=== PATIENT | male | born 1975 | race Caucasian/White ===

== ENCOUNTER 2024-10-11 09:31 | Inpatient (IN) | payer OTHER ==
--- NOTE | 2024-10-11 10:25 | ED ---
General Adult HPI - General Chief complaint: Chest Pain Stated complaint: chest pain Time Seen by Provider: 10/11/24 09:45 Source: patient, RN notes reviewed Mode of arrival: ambulatory Limitations: no limitations - History of Present Illness Initial comments: 48-year-old male with history of hypertension not currently medications presenting to the emergency department with complaints of intermittent central nonradiating chest pain over the past 3 days. He states that on Friday he began to experience pain middle of his chest while he was walking to the appeared to go fishing. He states that after he sat down and rest the pain resolved. He stated at the time of the pain it was nonradiating with associated diaphoresis. Over the past few days he has experienced similar symptoms of pain in the mid of his chest that is nonradiating and resolved with rest. Currently patient states that he is chest pain-free. Denies history of DVT, PE, recent prolonged travels, recent surgeries, blood thinner use. Denies history of diabetes, hyperlipidemia. Endorses chewing tobacco history. - Related Data Home Medications Medication Instructions Recorded Confirmed No Known Home Medications 10/11/24 10/11/24 Allergies Allergy/AdvReac Type Severity Reaction Status Date / Time acetaminophen AdvReac Chest Pain Verified 10/11/24 12:43 [From Tylenol-Codeine] codeine AdvReac Chest Pain Verified 10/11/24 12:43 [From Tylenol-Codeine] Review of Systems ROS Statement: Those systems with pertinent positive or pertinent negative responses have been documented in the HPI. ROS Other: All systems not noted in ROS Statement are negative. Past Medical History Past Medical History: No Reported History History of Any Multi-Drug Resistant Organisms: None Reported Past Surgical History: Hernia Repair, Tonsillectomy Past Psychological History: No Psychological Hx Reported Smoking Status: Never smoker Past Alcohol Use History: None Reported Past Drug Use History: Marijuana General Exam - General Exam Comments Initial Comments: Visual Physical Exam Vital signs reviewed General: Well-appearing, nontoxic, no acute distress. Head: Normocephalic, atraumatic Eyes: PERRLA, EOMI ENT: Airway patent Chest: Nonlabored breathing Skin: No visual rash, normal skin tone Neuro: Alert and oriented 3 Musculoskeletal: No gross abnormalities Limitations: no limitations General appearance: alert, in no apparent distress Neck exam: Present: normal inspection. Absent: tenderness, meningismus, lymphadenopathy Respiratory exam: Present: normal lung sounds bilaterally. Absent: respiratory distress, wheezes, rales, rhonchi, stridor Cardiovascular Exam: Present: regular rate, normal rhythm, normal heart sounds. Absent: systolic murmur, diastolic murmur, rubs, gallop, clicks GI/Abdominal exam: Present: soft, normal bowel sounds. Absent: distended, tenderness, guarding, rebound, rigid Extremities exam: Present: normal inspection, full ROM, normal capillary refill. Absent: tenderness, pedal edema, joint swelling, calf tenderness Back exam: Present: normal inspection Course Vital Signs 10/11/24 10/11/24 09:43 12:03 Temperature 97.7 F Pulse Rate 84 68 Respiratory 19 18 Rate Blood Pressure 158/115 169/106 O2 Sat by Pulse 99 97 Oximetry Medical Decision Making - Medical Decision Making Was pt. sent in by a medical professional or institution (, PA, JAVA J2EE ARCHITECT, urgent care, hospital, or fci...) When possible be specific @ -No Did you speak to anyone other than the patient for history (EMS, parent, family, police, friend...)? What history was obtained from this source @ -No Did you review nursing and triage notes (agree or disagree)? Why? @ -I reviewed and agree with nursing and triage notes Were old charts reviewed (outside hosp., previous admission, EMS record, old EKG, old radiological studies, urgent care reports/EKG's, fci records)? Report findings @ -No old charts were reviewed Differential Diagnosis (chest pain, altered mental status, abdominal pain women, abdominal pain men, vaginal bleeding, weakness, fever, dyspnea, syncope, headache, dizziness, GI bleed, back pain, seizure, CVA, palpatations, mental health, musculoskeletal)? @ -Differential Chest Pain: Stable Angina, Unstable Angina, STEMI, NSTEMI Aortic Dissection, Pneumothorax, Musculoskeletal, Esophageal Spasm GERD, Cholecystitis, Pancreatitis, Zoster, this is not meant to be an all-inclusive list. EKG interpreted by me (3pts min.). @ -Completed at 936 sinus rhythm with a ventricular rate of76, DC interval 141, QRS 88, QT 372, QTc 402. X-rays interpreted by me (1pt min.). @ -Chest x-ray no acute process, possible underlying COPD. CT interpreted by me (1pt min.). @ -None done U/S interpreted by me (1pt. min.). @ -None done What testing was considered but not performed or refused? (CT, X-rays, U/S, labs)? Why? @ -None What meds were considered but not given or refused? Why? @ -None Did you discuss the management of the patient with other professionals (professionals i.e. Dr., PA, JAVA J2EE ARCHITECT, lab, RT, psych nurse, adoption social worker, pattern developer, teacher, workers' compensation hearings officer, major case detective)? Give summary @ -I spoke with Rachelle from [facility] who has agreed to admit the patient with cardiology on consult. Was smoking cessation discussed for >3mins.? @ -No Was critical care preformed (if so, how long)? @ -Yes, for greater than 35 minutes this patient was started on a heparin drip. Were there social determinants of health that impacted care today? How? (Homelessness, low income, unemployed, alcoholism, drug addiction, transportation, low edu. Level, literacy, decrease access to med. care, fpc, rehab)? @ -No Was there de-escalation of care discussed even if they declined (Discuss DNR or withdrawal of care, Hospice)? DNR status @ -No What co-morbidities impacted this encounter? (DM, HTN, Smoking, COPD, CAD, Cancer, CVA, ARF, Chemo, Hep., AIDS, mental health diagnosis, sleep apnea, morbid obesity)? @ -None Was patient admitted / discharged? Hospital course, mention meds given and route, prescriptions, significant lab abnormalities, going to OR and other pertinent info. @ -Admitted. 48-year-old male presented emergency room with complaints of intermittent chest pain. Patient is hypertensive on arrival with a blood pressure 158/115. EKG is in sinus rhythm. Patient will be evaluated via chest pain workup including chest x-ray and laboratory testing. Patient is also provided with dose of aspirin with concern for potential ACS. Patient troponin is elevated at 0.068 consistent with an NSTEMI and there are no ischemic EKG changes. Patient is resting in examination bed in no signs of chest pain or acute complaints. Patient will be started on low intensity heparin drip and will trend troponin every 3 hours. Patient will be admitted to internal medicine with cardiology consult. Case discussed with my attending Dr. Helmreich. admitted to [facility]. Undiagnosed new problem with uncertain prognosis? @ -No Drug Therapy requiring intensive monitoring for toxicity (Heparin, Nitro, Insulin, Cardizem)? @ -No Were any procedures done? @ -No Diagnosis/symptom? @ -NSTEMI, ACS Acute, or Chronic, or Acute on Chronic? @ -Acute Uncomplicated (without systemic symptoms) or Complicated (systemic symptoms)? @ -Complicated Side effects of treatment? @ -No Exacerbation, Progression, or Severe Exacerbation? @ -No Poses a threat to life or bodily function? How? (Chest pain, [place], [place], pneumonia, PE, COPD, DKA, ARF, appy, cholecystitis, CVA, Diverticulitis, Homicidal, Suicidal, threat to staff... and all critical care pts) @ -Yes, can lead to multiorgan system dysfunction and potential of . - Lab Data Result diagrams: 10/11/24 10:25 10/11/24 10:25 Lab Results 10/11/24 10/11/24 10/11/24 Range/Units 10:25 10:25 10:25 WBC 11.52 H (4.50-10.00) 10*3/uL RBC 4.75 (4.40-5.60) 10*6/uL Hgb 15.3 (13.0-17.0) g/dL Hct 43.1 (39.6-50.0) % MCV 90.7 (80.0-97.0) fL MCH 32.2 H (27.0-32.0) pg MCHC 35.5 (32.0-37.0) g/dL Plt Count 308 (140-440) 10*3/uL MPV 10.9 (9.5-12.2) fL Immature Gran % (Auto) 0.3 % Neutrophils % 64.4 % Lymphocytes % 26.0 % Monocytes % 7.6 % Eosinophils % 1.2 % Basophils % 0.5 % Immature Gran # 0.04 (0.00-0.04) 10*3/uL Neutrophils # 7.41 (1.80-7.70) 10*3/uL Lymphocytes # 3.00 (0.90-5.00) 10*3/uL Monocytes # 0.87 (0.20-1.00) 10*3/uL Eosinophils # 0.14 (0.04-0.35) 10*3/uL Basophils # 0.06 (0.00-0.10) 10*3/uL PT 10.3 (10.0-12.5) sec INR 0.9 (<1.2) APTT 22.7 (22.0-30.0) sec D-Dimer (<0.60) mg/L FEU Sodium 139 (137-145) mmol/L Potassium 4.3 (3.5-5.1) mmol/L Chloride 106 (98-107) mmol/L Carbon Dioxide 23 (22-30) mmol/L Anion Gap 10 mmol/L BUN 11 (9-20) mg/dL Creatinine 0.81 (0.66-1.25) mg/dL Est GFR (CKD-EPI)AfAm >90 (>60 ml/min/1.73 sqM) Est GFR (CKD-EPI)NonAf >90 (>60 ml/min/1.73 sqM) Glucose 114 H (74-99) mg/dL Calcium 9.6 (8.4-10.2) mg/dL Magnesium 1.6 (1.6-2.3) mg/dL Total Bilirubin 0.7 (0.2-1.3) mg/dL AST 27 (17-59) U/L ALT 27 (4-49) U/L Alkaline Phosphatase 79 (38-126) U/L Troponin I (0.000-0.034) ng/mL NT-Pro-B Natriuret Pep pg/mL Total Protein 6.9 (6.3-8.2) g/dL Albumin 4.5 (3.5-5.0) g/dL Lipase 434 H (23-300) U/L 10/11/24 10/11/24 10/11/24 Range/Units 10:25 10:25 10:25 WBC (4.50-10.00) 10*3/uL RBC (4.40-5.60) 10*6/uL Hgb (13.0-17.0) g/dL Hct (39.6-50.0) % MCV (80.0-97.0) fL MCH (27.0-32.0) pg MCHC (32.0-37.0) g/dL Plt Count (140-440) 10*3/uL MPV (9.5-12.2) fL Immature Gran % (Auto) % Neutrophils % % Lymphocytes % % Monocytes % % Eosinophils % % Basophils % % Immature Gran # (0.00-0.04) 10*3/uL Neutrophils # (1.80-7.70) 10*3/uL Lymphocytes # (0.90-5.00) 10*3/uL Monocytes # (0.20-1.00) 10*3/uL Eosinophils # (0.04-0.35) 10*3/uL Basophils # (0.00-0.10) 10*3/uL PT (10.0-12.5) sec INR (<1.2) APTT (22.0-30.0) sec D-Dimer 0.18 (<0.60) mg/L FEU Sodium (137-145) mmol/L Potassium (3.5-5.1) mmol/L Chloride (98-107) mmol/L Carbon Dioxide (22-30) mmol/L Anion Gap mmol/L BUN (9-20) mg/dL Creatinine (0.66-1.25) mg/dL Est GFR (CKD-EPI)AfAm (>60 ml/min/1.73 sqM) Est GFR (CKD-EPI)NonAf (>60 ml/min/1.73 sqM) Glucose (74-99) mg/dL Calcium (8.4-10.2) mg/dL Magnesium (1.6-2.3) mg/dL Total Bilirubin (0.2-1.3) mg/dL AST (17-59) U/L ALT (4-49) U/L Alkaline Phosphatase (38-126) U/L Troponin I 0.068 H* (0.000-0.034) ng/mL NT-Pro-B Natriuret Pep 92 pg/mL Total Protein (6.3-8.2) g/dL Albumin (3.5-5.0) g/dL Lipase (23-300) U/L 10/11/24 Range/Units 13:05 WBC (4.50-10.00) 10*3/uL RBC (4.40-5.60) 10*6/uL Hgb (13.0-17.0) g/dL Hct (39.6-50.0) % MCV (80.0-97.0) fL MCH (27.0-32.0) pg MCHC (32.0-37.0) g/dL Plt Count (140-440) 10*3/uL MPV (9.5-12.2) fL Immature Gran % (Auto) % Neutrophils % % Lymphocytes % % Monocytes % % Eosinophils % % Basophils % % Immature Gran # (0.00-0.04) 10*3/uL Neutrophils # (1.80-7.70) 10*3/uL Lymphocytes # (0.90-5.00) 10*3/uL Monocytes # (0.20-1.00) 10*3/uL Eosinophils # (0.04-0.35) 10*3/uL Basophils # (0.00-0.10) 10*3/uL PT (10.0-12.5) sec INR (<1.2) APTT 38.1 H (22.0-30.0) sec D-Dimer (<0.60) mg/L FEU Sodium (137-145) mmol/L Potassium (3.5-5.1) mmol/L Chloride (98-107) mmol/L Carbon Dioxide (22-30) mmol/L Anion Gap mmol/L BUN (9-20) mg/dL Creatinine (0.66-1.25) mg/dL Est GFR (CKD-EPI)AfAm (>60 ml/min/1.73 sqM) Est GFR (CKD-EPI)NonAf (>60 ml/min/1.73 sqM) Glucose (74-99) mg/dL Calcium (8.4-10.2) mg/dL Magnesium (1.6-2.3) mg/dL Total Bilirubin (0.2-1.3) mg/dL AST (17-59) U/L ALT (4-49) U/L Alkaline Phosphatase (38-126) U/L Troponin I (0.000-0.034) ng/mL NT-Pro-B Natriuret Pep pg/mL Total Protein (6.3-8.2) g/dL Albumin (3.5-5.0) g/dL Lipase (23-300) U/L Disposition Clinical Impression: NSTEMI (non-ST elevated myocardial infarction), ACS (acute coronary syndrome) Disposition[facility] Condition: Serious Referrals: None,Stated [Primary Care Provider] - 1-2 days [facility] [NON-STAFF] - 1-2 days (Clinic for [facility] residents with no insurance or who are under insured.) Forms: Area PCPs Decision to Admit Reason: Admit from EC Decision Date: 10/11/24 Decision Time: 12:15
[2024-10-11 10:42] LABS: ALT 27 U/L (4-49); AST 27 U/L (17-59); African American GFR (CKD) >90 (>60 ml/min/1.73 sqM); Albumin 4.5 g/dL (3.5-5.0); Alkaline Phosphatase 79 U/L (38-126); Anion Gap 10 mmol/L; Blood Urea Nitrogen 11 mg/dL (9-20); Calcium 9.6 mg/dL (8.4-10.2); Carbon Dioxide 23 mmol/L (22-30); Chloride 106 mmol/L (98-107); Glucose 114 mg/dL (74-99); Lipase 434 U/L (23-300); Magnesium 1.6 mg/dL (1.6-2.3); Non-African American GFR(CKD) >90 (>60 ml/min/1.73 sqM); Potassium 4.3 mmol/L (3.5-5.1); Sodium 139 mmol/L (137-145); Total Protein 6.9 g/dL (6.3-8.2)
--- NOTE | 2024-10-11 10:44 | XR ---
EXAMINATION TYPE: XR chest 2V DATE OF EXAM: 10/11/2024 10:33 AM COMPARISON: None CLINICAL INDICATION: Male, 48 years old with history of Chest Pain, , TECHNIQUE: PA and lateral views FINDINGS: Heart normal size. Aorta and pulmonary vasculature within normal limits. Mild interstitial prominence and mild hyperinflation. No consolidation or pleural effusion. Left mid to lower lung nodularity, li kit nipple shadow. IMPRESSION: Possible underlying COPD. Clinically correlate. Otherwise, no definite acute process. [facility], Workstation: [email or web address], 10/11/2024 10:42 AM
[2024-10-11 10:58] LABS: Basophils # (A) 0.06 10*3/uL (0.00-0.10); Basophils % (A) 0.5 %; Eosinophils # (A) 0.14 10*3/uL (0.04-0.35); Eosinophils % (A) 1.2 %; HCT 43.1 % (39.6-50.0); HGB 15.3 g/dL (13.0-17.0); Lymphocytes # (A) 3.00 10*3/uL (0.90-5.00); Lymphocytes % (A) 26.0 %; MCH 32.2 pg (27.0-32.0); MCHC 35.5 g/dL (32.0-37.0); MCV 90.7 fL (80.0-97.0); Monocytes # (A) 0.87 10*3/uL (0.20-1.00); Monocytes % (A) 7.6 %; Neutrophils # (A) 7.41 10*3/uL (1.80-7.70); Neutrophils % (A) 64.4 %; Platelet Count 308 10*3/uL (140-440); RBC 4.75 10*6/uL (4.40-5.60); RDW 11.8 % (11.5-14.5); WBC 11.52 10*3/uL (4.50-10.00)
[2024-10-11 10:59] LABS: INR 0.9 (<1.2); Partial Thromboplastin Time 22.7 sec (22.0-30.0); Prothrombin Time 10.3 sec (10.0-12.5)
[2024-10-11] MEDS: HEPARIN SOD,PORK IN 0.45% NACL 25,000 UNIT in 0.45% NACL 1 250ML.BAG IV SCH (12:13)
[2024-10-11] MEDS: HEPARIN SODIUM 1,000 UN/ML (10ML VL) IV ONE (12:13)
[2024-10-11] MEDS: ASPIRIN 81 MG PO STA (12:13)
[2024-10-11] MEDS ORDERED: NALOXONE 0.4 MG/ML 1 ML VIAL IV PRN (12:27)
[2024-10-11] MEDS: HEPARIN SODIUM 1,000 UN/ML (10ML VL) IV PRN (18:52)
[2024-10-12 01:29] LABS: Basophils # (A) 0.06 10*3/uL (0.00-0.10); Basophils % (A) 0.4 %; Eosinophils # (A) 0.17 10*3/uL (0.04-0.35); Eosinophils % (A) 1.3 %; HCT 42.8 % (39.6-50.0); HGB 15.2 g/dL (13.0-17.0); Lymphocytes # (A) 4.53 10*3/uL (0.90-5.00); Lymphocytes % (A) 33.9 %; MCH 32.3 pg (27.0-32.0); MCHC 35.5 g/dL (32.0-37.0); MCV 90.9 fL (80.0-97.0); Monocytes # (A) 1.12 10*3/uL (0.20-1.00); Monocytes % (A) 8.4 %; Neutrophils # (A) 7.45 10*3/uL (1.80-7.70); Neutrophils % (A) 55.6 %; Platelet Count 293 10*3/uL (140-440); RBC 4.71 10*6/uL (4.40-5.60); RDW 12.0 % (11.5-14.5); WBC 13.38 10*3/uL (4.50-10.00)
[2024-10-12 02:21] LABS: INR 1.0 (<1.2); Prothrombin Time 10.9 sec (10.0-12.5)
--- NOTE | 2024-10-12 05:24 | P.HPIM ---
History of Present Illness H&P Date: 10/11/24 This is a pleasant 48-year-old male who presented to the emergency department with chest pain. Patient [place] [employer] [place] and walking [id number] doing things throughout the day started having midsternal chest pain that was sharp and intense and intermittent at times although progressively became worse over the day and was persistent and was brought here by family for further evaluation. Patient reports he follows with Dr. Reyna in the [place] area as patient resides there and no significant past medical history other than previous history of hypertension although blood pressures have improved and patient was not taking any medications for them. Patient denies alcohol use or tobacco use but does admit to using marijuana on occasion. Labs reviewed on admission reveal a mildly elevated white count of 11.52, hemoglobin 15.3, platelets 308, D-dimer 0.18, sodium 139 with a potassium of 4.3, BUN 11, creatinine 0.81, magnesium 1.6, initial troponin 0.068, repeat is 0.060, third troponin is 0.051, BNP was 92 and lipase is 434. Patient did admit to some abdominal discomfort when experiencing this pain. Chest x-ray reveals possible underlying COPD otherwise no definitive acute process, EKG shows sinus rhythm and a heart rate of 76 bpm. Patient being admitted and started on IV heparin with cardiology on consultation. REVIEW OF SYSTEMS: CONSTITUTIONAL: No fever, no malaise, no fatigue. HEENT: No recent visual problems or hearing problems. Denied any sore throat. CARDIOVASCULAR: Reports of intermittent chest pain, orthopnea, PND, no palpitations, no syncope. PULMONARY: Reported shortness of breath during the chest pain episode, no cough, no hemoptysis. GASTROINTESTINAL: No diarrhea, reporting feeling briefly nauseated, no vomiting, no abdominal pain. NEUROLOGICAL: No headaches, no weakness, no numbness. HEMATOLOGICAL: Denies any bleeding or petechiae. GENITOURINARY: Denies any burning micturition, frequency, or urgency. MUSCULOSKELETAL/RHEUMATOLOGICAL: Denies any joint pain, swelling, or any muscle pain. ENDOCRINE: Denies any polyuria or polydipsia. The rest of the 14-point review of systems is negative. PHYSICAL EXAMINATION: GENERAL: The patient is alert and oriented x3, not in any acute distress. Well developed, well nourished. Obese HEENT: Pupils are round and equally reacting to light. EOMI. No scleral icterus. No conjunctival pallor. Normocephalic, atraumatic. No pharyngeal erythema. No thyromegaly. CARDIOVASCULAR: S1 and S2 present. No murmurs, rubs, or gallops. PULMONARY: Chest is clear to auscultation, no wheezing or crackles. ABDOMEN: Soft, nontender, nondistended, normoactive bowel sounds. No palpable organomegaly. MUSCULOSKELETAL: No joint swelling or deformity. EXTREMITIES: No cyanosis, clubbing, or pedal edema. NEUROLOGICAL: Gross neurological examination did not reveal any focal deficits. SKIN: No rashes. Assessment: Chest pain, possible acute NSTEMI, troponins minimally elevated THC use History of hypertension although not taking any medications per patient Obesity with a BMI of 32.5 GI prophylaxis DVT prophylaxis Full code Plan: Patient was admitted for cardiology evaluation and started on IV heparin as patient had elevated troponins as mentioned previously. awaiting evaluation with cardiology and recommend to continue on telemetry monitoring Will follow-up on repeat labs and replace electrolytes per protocol Encourage increase activity as tolerated Plan for possible n.p.o. at midnight in the event cardiology would like to assess for a stress test and/or cardiac catheterization Continue supportive care and await cardiology clearance with possible discharge planning in the next 24 hours The impression and plan of care has been dictated by Nurse Jv Pr actitioner as directed. Dr. Eulalio MD I have performed a history and examination and MDM of this patient, discussed the same with the dictator, and agree with the dictator's assessment and plan a s written ,documented as a scribe. Based on total visit time, I have performed more than 50% of the visit. Past Medical History Past Medical History: No Reported History History of Any Multi-Drug Resistant Organisms: None Reported Past Surgical History: Hernia Repair, Tonsillectomy Past Psychological History: No Psychological Hx Reported Smoking Status: Never smoker Past Alcohol Use History: None Reported Past Drug Use History: Marijuana Medications and Allergies Home Medications Medication Instructions Recorded Confirmed Type No Known Home Medications 10/11/24 10/11/24 History Allergies Allergy/AdvReac Type Severity Reaction Status Date / Time acetaminophen AdvReac Chest Pain Verified 10/11/24 12:43 [From Tylenol-Codeine] codeine AdvReac Chest Pain Verified 10/11/24 12:43 [From Tylenol-Codeine] Physical Exam Vitals: Vital Signs Temp Pulse Resp BP Pulse Ox 10/11/24 15:58 98 F 71 18 123/76 98 10/11/24 15:00 73 18 138/102 10/11/24 12:03 68 18 169/106 97 10/11/24 09:43 97.7 F 84 19 158/115 99 Intake and Output 10/11/24 10/11/24 10/11/24 06:59 14:59 22:59 Other: Weight 99.79 kg Results CBC & Chem 7: 10/12/24 01:10 10/11/24 10:25 Labs: Abnormal Lab Results - Last 24 Hours (Table) 10/11/24 10/11/24 10/11/24 Range/Units 10:25 10:25 10:25 WBC 11.52 H (4.50-10.00) 10*3/uL MCH 32.2 H (27.0-32.0) pg APTT (22.0-30.0) sec Glucose 114 H (74-99) mg/dL Troponin I 0.068 H* (0.000-0.034) ng/mL Lipase 434 H (23-300) U/L 10/11/24 10/11/24 Range/Units 13:05 14:19 WBC (4.50-10.00) 10*3/uL MCH (27.0-32.0) pg APTT 38.1 H (22.0-30.0) sec Glucose (74-99) mg/dL Troponin I 0.060 H* (0.000-0.034) ng/mL Lipase (23-300) U/L
[2024-10-12] MEDS: NICOTINE 21MG/24HR PATCH TRANSDERM STA (08:58)
[2024-10-12] MEDS: PANTOPRAZOLE 40 MG/10 ML VIAL IV SCH (08:58)
[2024-10-12] MEDS: METOPROLOL TARTRATE 25 MG TAB PO SCH (09:01)
[2024-10-12] MEDS: ASPIRIN 81 MG PO SCH (09:01)
[2024-10-12] MEDS: LOSARTAN 25 MG TAB PO SCH (09:01)
[2024-10-12] MEDS ORDERED: ASPIRIN 325 MG TAB PO STA (09:06)
[2024-10-12] MEDS ORDERED: NITROGLYCERIN SL TABS 0.4 MG TAB SUBLINGUAL PRN (09:06)
[2024-10-12 09:11] LABS: African American GFR (CKD) >90 (>60 ml/min/1.73 sqM); Amylase 60 U/L (30-110); Anion Gap 8 mmol/L; Blood Urea Nitrogen 10 mg/dL (9-20); Calcium 8.5 mg/dL (8.4-10.2); Carbon Dioxide 24 mmol/L (22-30); Chloride 106 mmol/L (98-107); Glucose 112 mg/dL (74-99); Lipase 153 U/L (23-300); Magnesium 1.7 mg/dL (1.6-2.3); Non-African American GFR(CKD) >90 (>60 ml/min/1.73 sqM); Potassium 3.8 mmol/L (3.5-5.1); Sodium 138 mmol/L (137-145)
[2024-10-12] MEDS: ATORVASTATIN 80 MG TAB PO STA (09:47)
[2024-10-12] MEDS: SODIUM CHLORIDE 0.9% 1,000 ML in EMPTY BAG 1 BAG IV SCH (10:29)
[2024-10-12] MEDS: LORazepam 1 MG/0.5 ML VIAL IV STA (11:49)
--- NOTE | 2024-10-12 12:46 | P.CRDCN ---
History of Present Illness History of present illness: HISTORY OF PRESENT ILLNESS: This is a 48-year-old male with a past medical history significant for hypertension not on medications. 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 We have been asked to see the patient in consultation for chest pain and elevated troponins. Patient examined this morning at the bedside in the emergency room. Patient states over the past couple days he has been having chest discomfort that he initially thought was heartburn. He states he was out fishing with his brother when he developed chest pain. He states additionally yesterday he had another bout of chest pain but thought it maybe was due to the heat. He denies having any abdominal pain. He denies any shortness of breath. He denies any alcohol use. He does report marijuana use. He denies any known history of CAD. Patient was found to have elevated troponins along with elevated lipase. EKG revealed sinus mechanism with early repolarization. REVIEW OF SYSTEMS: At the time of my exam: CONSTITUTIONAL: Denies fever or chills. HEENT: Denies blurred vision, vision changes, or eye pain. Denies hemoptysis CARDIOVASCULAR: Denies chest pain. Denies orthopnea. Denies PND. Denies palp itations RESPIRATORY: Denies shortness of breath. GASTROINTESTINAL: Denies abdominal pain. Denies nausea or vomiting. HEMATOLOGIC: Denies bleeding disorders. GENITOURINARY: Denies any blood in urine. SKIN: Denies pruitis. Denies rash. PHYSICAL EXAM: VITAL SIGNS: Reviewed. GENERAL: Well-developed in no acute distress. HEENT: Head is normocephalic. Pupils are equal, round. Sclerae anicteric. Mucous membranes of the mouth are moist. Neck supple. No JVD or thyromegaly LUNGS: Respirations even and unlabored. Lungs essentially clear to auscultation bilaterally. HEART: Regular rate and rhythm. S1 and S2 heard. ABDOMEN: Soft. Nondistended. Nontender. EXTREMITIES: Normal range of motion. No clubbing or cyanosis. Peripheral pulses intact. No lower extremity edema NEUROLOGIC: Awake and alert. Oriented x 3. ASSESSMENT: Chest pain with elevated troponins, non-STEMI, concerning for coronary artery disease Hypertension, not taking antihypertensive medications on an outpatient basis Elevated lipase Marijuana use PLAN: Obtain 2D echo to assess cardiac structure and function Begin aspirin, atorvastatin, losartan, and metoprolol Begin IV heparin Recommend abstinence against marijuana use Patient to undergo cardiac catheterization today with Dr. Ashby Further recommendations pending patient course Nurse practitioner note has been reviewed by physician. Signing provider agrees with the documented findings, assessment, and plan of care documented by TORSION SPRING COILING MACHINE SETTER as a scribe. Past Medical History Past Medical History: No Reported History History of Any Multi-Drug Resistant Organisms: None Reported Past Surgical History: Hernia Repair, Tonsillectomy Past Psychological History: No Psychological Hx Reported Smoking Status: Never smoker Past Alcohol Use History: None Reported Past Drug Use History: Marijuana Medications and Allergies Home Medications Medication Instructions Recorded Confirmed Type No Known Home Medications 10/11/24 10/11/24 History Allergies Allergy/AdvReac Type Severity Reaction Status Date / Time acetaminophen AdvReac Chest Pain Verified 10/11/24 12:43 [From Tylenol-Codeine] codeine AdvReac Chest Pain Verified 10/11/24 12:43 [From Tylenol-Codeine] Physical Exam Vitals: Vital Signs Temp Pulse Resp BP Pulse Ox 10/12/24 07:41 74 18 152/123 97 10/12/24 05:00 87 16 139/84 99 10/12/24 04:00 65 22 154/94 98 10/12/24 03:00 61 19 157/105 97 10/12/24 02:00 67 13 133/77 10/12/24 01:00 65 15 139/99 96 10/11/24 23:00 68 14 133/94 97 10/11/24 22:00 86 19 132/83 99 10/11/24 21:00 65 22 135/77 100 10/11/24 18:12 86 18 151/97 99 10/11/24 15:58 98 F 71 18 123/76 98 10/11/24 15:00 73 18 138/102 10/11/24 12:03 68 18 169/106 97 10/11/24 09:43 97.7 F 84 19 158/115 99 Intake and Output 10/11/24 10/12/24 10/12/24 22:59 06:59 14:59 Intake Total 66.16 Balance 66.16 Intake: Intake, IV Titration 66.16 Amount Heparin Sod,Pork in 0.45% 66.16 NaCl 25,000 unit In 0.45 % NaCl 1 250ml.bag @ 10. 02 UNITS/KG/HR 9.999 mls/ hr IV .Q24H [facility] Rx#: [id number] Results 10/12/24 01:10 10/12/24 07:55 Cardiac Enzymes 10/11/24 10/11/24 10/11/24 Range/Units 10:25 10:25 14:19 AST 27 (17-59) U/L Troponin I 0.068 H* 0.060 H* (0.000-0.034) ng/mL 10/11/24 Range/Units 17:32 AST (17-59) U/L Troponin I 0.051 H* (0.000-0.034) ng/mL Coagulation 10/11/24 10/11/24 10/11/24 Range/Units 10:25 13:05 17:32 PT 10.3 (10.0-12.5) sec APTT 22.7 38.1 H 30.2 H (22.0-30.0) sec 10/12/24 10/12/24 10/12/24 Range/Units 01:10 01:10 07:55 PT 10.9 (10.0-12.5) sec APTT 46.1 H 36.8 H (22.0-30.0) sec CBC 10/11/24 10/12/24 Range/Units 10:25 01:10 WBC 11.52 H 13.38 H (4.50-10.00) 10*3/uL RBC 4.75 4.71 (4.40-5.60) 10*6/uL Hgb 15.3 15.2 (13.0-17.0) g/dL Hct 43.1 42.8 (39.6-50.0) % Plt Count 308 293 (140-440) 10*3/uL Comprehensive Metabolic Panel 10/11/24 Range/Units 10:25 Sodium 139 (137-145) mmol/L Potassium 4.3 (3.5-5.1) mmol/L Chloride 106 (98-107) mmol/L Carbon Dioxide 23 (22-30) mmol/L BUN 11 (9-20) mg/dL Creatinine 0.81 (0.66-1.25) mg/dL Glucose 114 H (74-99) mg/dL Calcium 9.6 (8.4-10.2) mg/dL AST 27 (17-59) U/L ALT 27 (4-49) U/L Alkaline Phosphatase 79 (38-126) U/L Total Protein 6.9 (6.3-8.2) g/dL Albumin 4.5 (3.5-5.0) g/dL Current Medications Generic Name Dose Route Start Last Admin Trade Name Freq PRN Reason Stop Dose Admin Heparin Sodium (Porcine) 0 unit 10/11/24 11:57 10/11/24 18:52 Heparin Sodium 1,000 Un/Ml (10ml Vl) IV 4,989.5 unit PER PROTOCOL PRN Administration Low PTT Protocol Heparin Sodium/Sodium Chloride 250 mls @ 9.999 mls/hr 10/11/24 12:00 10/11/24 18:50 25,000 unit/ Sodium Chloride IV 13.02 units/kg/hr .Q24H [facility] 12.993 mls/hr Titration Protocol 10.02 UNITS/KG/HR Naloxone HCl 0.2 mg 10/11/24 12:27 Naloxone 0.4 Mg/Ml 1 Ml Vial IV Q2M PRN Opioid Reversal Ondansetron HCl 4 mg 10/11/24 12:27 Ondansetron 4 Mg/2 Ml Vial IVP Q8HR PRN Nausea And Vomiting Pantoprazole Sodium 40 mg 10/12/24 09:00 Pantoprazole 40 Mg/10 Ml Vial IV DAILY [facility] Intake and Output 10/11/24 10/12/24 10/12/24 22:59 06:59 14:59 Intake Total 66.16 Balance 66.16 Intake: Intake, IV Titration 66.16 Amount Heparin Sod,Pork in 0.45% 66.16 NaCl 25,000 unit In 0.45 % NaCl 1 250ml.bag @ 10. 02 UNITS/KG/HR 9.999 mls/ hr IV .Q24H [facility] Rx#: [id number] 10/12/24 01:10 10/11/24 10:25
--- NOTE | 2024-10-12 14:39 | CA ---
Transthoracic Echo Report Name: Holger Wade Age: 48 Gender: M : 1975 Exam Date: 10/12/2024 09:02 Exam Location: [facility] Ht (in): 69 Wt (lb): 220 Ordering Physician: Luanne Pryor Attending/Referring Phys: [id number], Konstantin Classified Advertising Manager Lizette Smith RDCS Procedure CPT: Indications: CP, Elevated troponins Cardiac Hx: Technical Quality: Good Contrast 1: Total Dose (mL): Contrast 2: Total Dose (mL): MEASUREMENTS (Male / Female) Normal Values 2D ECHO LV Diastolic Diameter PLAX 5.0 cm 4.2 - 5.9 / 3.9 - 5.3 cm LV Systolic Diameter PLAX 3.7 cm IVS Diastolic Thickness 1.0 cm 0.6 - 1.0 / 0.6 - 0.9 cm LVPW Diastolic Thickness 1.1 cm 0.6 - 1.0 / 0.6 - 0.9 cm LV Relative Wall Thickness 0.4 RV Internal Dim ED PLAX 3.2 cm LVOT Diameter 2.2 cm LA Systolic Diameter LX 3.9 cm 3.0 - 4.0 / 2.7 - 3.8 cm LV Diastolic Volume MOD BP 79.2 cm??? 67 - 155 / 56 - 104 cm??? LV Systolic Volume MOD BP 25.7 cm??? 22 - 58 / 19 - 49 cm??? LV Ejection Fraction MOD BP 67.6 % >= 55 % LV Cardiac Index MOD BP 1818.2 cm???/min???m??? LV Diastolic Volume MOD 4C 88.1 cm??? LV Systolic Volume MOD 4C 35.3 cm??? LV Ejection Fraction MOD 4C 59.9 % LV Cardiac Index MOD 4C 1794.3 cm???/min???m??? LV Diastolic Length 4C 9.1 cm LV Systolic Length 4C 7.4 cm LV Diastolic Volume MOD 2C 67.5 cm??? LV Systolic Volume MOD 2C 19.3 cm??? LV Ejection Fraction MOD 2C 71.3 % LV Cardiac Index MOD 2C 1636.3 cm???/min???m??? LV Diastolic Length 2C 8.6 cm LV Systolic Length 2C 7.3 cm LA Volume 58.3 cm??? 18 - 58 / 22 - 52 cm??? LA Volume Index 26.1 cm???/m??? 16 - 28 cm???/m??? M-MODE Aortic Root Diameter MM 3.0 cm LA Systolic Diameter MM 4.5 cm LA Ao Ratio MM 1.5 AV Cusp Separation MM 1.8 cm DOPPLER MV Area PHT 3.4 cm??? Mitral E Point Velocity 68.3 cm/s Mitral A Point Velocity 94.5 cm/s Mitral E to A Ratio 0.7 MV Deceleration Time 223.1 ms TR Peak Velocity 218.2 cm/s TR Peak Gradient 19.1 mmHg FINDINGS Left Ventricle Left ventricular ejection fraction is estimated at 55-60 %. Normal left ventricular systolic function with no obvious regional wall motion abnormalities. Left ventricular cavity size normal. Left ventricular wall thickness normal. Right Ventricle Normal right ventricular size and function. Right Atrium Normal right atrial size. Left Atrium Normal left atrial size. Mitral Valve Structurally normal mitral valve. Trace mitral regurgitation. No mitral stenosis. Aortic Valve Trileaflet aortic valve. Trace to mild aortic regurgitation. No aortic stenosis. Tricuspid Valve Structurally normal tricuspid valve. No tricuspid stenosis. Trace tricuspid regurgitation. Pulmonic Valve Structurally normal pulmonic valve. Trace pulmonic regurgitation. No pulmonic stenosis. Pericardium No pericardial or pleural effusion. Aorta Normal size aortic root and proximal ascending aorta. CONCLUSIONS Normal LV size and systolic function. No significant abnormality on the Doppler exam. No pericardial effusion Previewed by: Dr. Awilda He MD (Electronically Signed) Final Date: 12 October 2024 14:39
[2024-10-12 19:38] LABS: Cholesterol 192.00 mg/dL (0.00-200.00); HDL Cholesterol 34.80 mg/dL (40.00-60.00); LDL Cholesterol,Calculated 128.0 mg/dL (0.0-131.0); Triglycerides 146.00 mg/dL (0.00-149.00); VLDL Calculation 29.20 mg/dL (5.00-40.00)
--- NOTE | 2024-10-13 05:22 | P.PN ---
Subjective Progress Note Date: 10/12/24 This is a pleasant 48-year-old male who presented to the emergency department with chest pain. Patient [place] [employer] [place] and walking [id number] doing things throughout the day started having midsternal chest pain that was sharp and intense and intermittent at times although progressively became worse over the day and was persistent and was brought here by family for further evaluation. Patient reports he follows with Dr. Reyna in the [place] area as patient resides there and no significant past medical history other than previous history of hypertension although blood pressures have improved and patient was not taking any medications for them. Patient denies alcohol use or tobacco use but does admit to using marijuana on occasion. Labs reviewed on admission reveal a mildly elevated white count of 11.52, hemoglobin 15.3, platelets 308, D-dimer 0.18, sodium 139 with a potassium of 4.3, BUN 11, creatinine 0.81, magnesium 1.6, initial troponin 0.068, repeat is 0.060, third troponin is 0.051, BNP was 92 and lipase is 434. Patient did admit to some abdominal discomfort when experiencing this pain. Chest x-ray reveals possible underlying COPD otherwise no definitive acute process, EKG shows sinus rhythm and a heart rate of 76 bpm. Patient being admitted and started on IV heparin with cardiology on consultation.. 10/12/2024 Patient is seen in follow-up today currently n.p.o. maintained on heparin and patient is scheduled to undergo cardiac catheterization with cardiology sometime today although unsure of what time. Patient is extremely anxious on exam with significant other at the bedside with questions and concerns that were answered to the best of her ability. Patient continues to report some intermittent chest discomfort although feels he is mostly having withdrawal effects from marijuana as he uses this daily and frequently throughout the day. Patient does have as needed anxiety medications and will continue as needed. Follow-up on repeat labs and continue telemetry monitoring. Review of systems: Constitutional: No reports of fatigue, fever, or chills, reports extreme anxiety Cardiovascular: No reports of chest pain or palpitations Respiratory: No reports of shortness of breath or cough GI: No reports of nausea, vomiting, or diarrhea : No reports of dysuria or retention Neurovascular: No reports of weakness or numbness All medications have been reviewed The rest of the 14-point review of systems is negative. PHYSICAL EXAMINATION: GENERAL: The patient is alert and oriented x3, anxious on exam. Well developed, well nourished. Obese HEENT: Pupils are round and equally reacting to light. EOMI. No scleral icterus. No conjunctival pallor. Normocephalic, atraumatic. No pharyngeal erythema. No thyromegaly. CARDIOVASCULAR: S1 and S2 present. No murmurs, rubs, or gallops. PULMONARY: Chest is clear to auscultation, no wheezing or crackles. ABDOMEN: Soft, nontender, nondistended, normoactive bowel sounds. No palpable organomegaly. MUSCULOSKELETAL: No joint swelling or deformity. EXTREMITIES: No cyanosis, clubbing, or pedal edema. NEUROLOGICAL: Gross neurological examination did not reveal any focal deficits. SKIN: No rashes. Assessment: Chest pain,acute NSTEMI, troponins minimally elevated, awaiting to undergo cardiac catheterization THC use History of hypertension although not taking any medications per patient Obesity with a BMI of 32.5 GI prophylaxis DVT prophylaxis Full code Plan: Patient was admitted for cardiology evaluation and continued on IV heparin as patient had elevated troponins as mentioned previously. Plan is for cardiac catheterization today Follow-up on repeat labs in monitor kidney functions and electrolytes closely Encourage increase activity as tolerated Await cardiac catheterization report and discuss further with cardiology regarding discharge planning Continue supportive care and await cardiology clearance with possible discharge planning in the next 24 hours The impression and plan of care has been dictated by Rachelle Johnson, Nurse Practitioner as directed. Dr. Eulalio MD I have performed a history and examination and MDM of this patient, discussed the same with the dictator, and agree with the dictator's assessment and plan as written ,documented as a scribe. Based on total visit time, I have performed more than 50% of the visit. Objective - Vital Signs Vital signs: Vital Signs Temp 98 F 10/11/24 15:58 Pulse 73 10/12/24 08:59 Resp 18 10/12/24 08:59 BP 132/78 10/12/24 08:59 Pulse Ox 97 10/12/24 08:59 FiO2 Intake & Output 10/11/24 10/12/24 10/12/24 18:59 06:59 18:59 Intake Total 66.16 183.84 Balance 66.16 183.84 Weight 99.79 kg Intake: Intake, IV Titration 66.16 183.84 Amount Heparin Sod,Pork in 0.45% 66.16 183.84 NaCl 25,000 unit In 0.45 % NaCl 1 250ml.bag @ 10. 02 UNITS/KG/HR 9.999 mls/ hr IV .Q24H [facility] Rx#: [id number] - Labs CBC & Chem 7: 10/12/24 01:10 10/12/24 07:55 Labs: Abnormal Lab Results - Last 24 Hours (Table) 10/11/24 10/11/24 10/11/24 Range/Units 13:05 14:19 17:32 WBC (4.50-10.00) 10*3/uL MCH (27.0-32.0) pg Immature Gran # (0.00-0.04) 10*3/uL Monocytes # (0.20-1.00) 10*3/uL APTT 38.1 H 30.2 H (22.0-30.0) sec Glucose (74-99) mg/dL Troponin I 0.060 H* (0.000-0.034) ng/mL 10/11/24 10/12/24 10/12/24 Range/Units 17:32 01:10 01:10 WBC 13.38 H (4.50-10.00) 10*3/uL MCH 32.3 H (27.0-32.0) pg Immature Gran # 0.05 H (0.00-0.04) 10*3/uL Monocytes # 1.12 H (0.20-1.00) 10*3/uL APTT 46.1 H (22.0-30.0) sec Glucose (74-99) mg/dL Troponin I 0.051 H* (0.000-0.034) ng/mL 10/12/24 10/12/24 Range/Units 07:55 07:55 WBC (4.50-10.00) 10*3/uL MCH (27.0-32.0) pg Immature Gran # (0.00-0.04) 10*3/uL Monocytes # (0.20-1.00) 10*3/uL APTT 36.8 H (22.0-30.0) sec Glucose 112 H (74-99) mg/dL Troponin I (0.000-0.034) ng/mL
[2024-10-13 06:05] LABS: Basophils # (A) 0.08 10*3/uL (0.00-0.10); Basophils % (A) 0.6 %; Eosinophils # (A) 0.11 10*3/uL (0.04-0.35); Eosinophils % (A) 0.9 %; HCT 41.3 % (39.6-50.0); HGB 14.5 g/dL (13.0-17.0); Lymphocytes # (A) 4.50 10*3/uL (0.90-5.00); Lymphocytes % (A) 34.9 %; MCH 32.4 pg (27.0-32.0); MCHC 35.1 g/dL (32.0-37.0); MCV 92.2 fL (80.0-97.0); Monocytes # (A) 1.09 10*3/uL (0.20-1.00); Monocytes % (A) 8.5 %; Neutrophils # (A) 7.04 10*3/uL (1.80-7.70); Neutrophils % (A) 54.6 %; Platelet Count 295 10*3/uL (140-440); RBC 4.48 10*6/uL (4.40-5.60); RDW 12.1 % (11.5-14.5); WBC 12.88 10*3/uL (4.50-10.00)
[2024-10-13 06:05] LABS: Glucose,Whole Blood 129 mg/dL (70-110)
[2024-10-13 06:17] LABS: African American GFR (CKD) >90 (>60 ml/min/1.73 sqM); Anion Gap 7 mmol/L; Blood Urea Nitrogen 10 mg/dL (9-20); Calcium 8.6 mg/dL (8.4-10.2); Carbon Dioxide 22 mmol/L (22-30); Chloride 110 mmol/L (98-107); Glucose 112 mg/dL (74-99); Non-African American GFR(CKD) >90 (>60 ml/min/1.73 sqM); Potassium 3.9 mmol/L (3.5-5.1); Sodium 139 mmol/L (137-145)
[2024-10-13] MEDS: NICOTINE 14MG/24HR PATCH TRANSDERM SCH (10:17)
[2024-10-13 11:14] LABS: Glucose,Whole Blood 107 mg/dL (70-110)
--- NOTE | 2024-10-13 11:15 | P.PN ---
Subjective HISTORY OF PRESENT ILLNESS: This is a 48-year-old male with a past medical history significant for hypertension not on medications. 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 We have been asked to see the patient in consultation for chest pain and elevated troponins. Patient examined this morning at the bedside in the emergency room. Patient states over the past couple days he has been having chest discomfort that he initially thought was heartburn. He states he was out fishing with his brother when he developed chest pain. He states additionally yesterday he had another bout of chest pain but thought it maybe was due to the heat. He denies having any abdominal pain. He denies any shortness of breath. He denies any alcohol use. He does report marijuana use. He denies any known history of CAD. Patient was found to have elevated troponins along with elevated lipase. EKG revealed sinus mechanism with early repolarization. 10/13/2024 Patient was scheduled for cardiac catheterization yesterday with Dr. Ashby. However this has been rescheduled for today. Patient examined this morning at bedside. Patient currently denies any chest pain or pressure. Denies any shortness of breath. Vital signs are stable. Echocardiogram completed revealing ejection fraction 55 to 60%, no obvious regional wall motion abnormalities, trace MR, trace to mild aortic regurgitation, trace tricuspid regurgitation. PHYSICAL EXAM: VITAL SIGNS: Reviewed. GENERAL: Well-developed in no acute distress. HEENT: Head is normocephalic. Pupils are equal, round. Sclerae anicteric. Mucous membranes of the mouth are moist. Neck supple. No JVD or thyromegaly LUNGS: Respirations even and unlabored. Lungs essentially clear to auscultation bilaterally. HEART: Regular rate and rhythm. S1 and S2 heard. ABDOMEN: Soft. Nondistended. Nontender. EXTREMITIES: Normal range of motion. No clubbing or cyanosis. Peripheral pulses intact. No lower extremity edema NEUROLOGIC: Awake and alert. Oriented x 3. ASSESSMENT: Chest pain with elevated troponins, non-STEMI, concerning for coronary artery disease Hypertension, not taking antihypertensive medications on an outpatient basis Elevated lipase, 434 on admission, resolved Marijuana use PLAN: Continue aspirin, atorvastatin and metoprolol Continue losartan. Increase dosage to 50 mg daily for optimal blood pressure control Continue IV heparin Recommend abstinence against marijuana use Patient to undergo cardiac catheterization today with Dr. Ashby Further recommendations pending patient course Nurse practitioner note has been reviewed by physician. Signing provider agrees with the documented findings, assessment, and plan of care documented by SYSTEM ADMINISTRATOR as a scribe. Objective - Vital Signs Vital signs: Vital Signs Temp 98.1 F 10/13/24 08:20 Pulse 87 10/13/24 08:20 Resp 16 10/13/24 08:20 BP 149/107 10/13/24 08:20 Pulse Ox 98 10/13/24 08:20 FiO2 Intake & Output 10/12/24 10/13/24 10/13/24 18:59 06:59 18:59 Intake Total 183.84 218.360 Balance 183.84 218.360 Weight 100 kg 86.5 kg Intake: Intake, IV Titration 183.84 218.360 Amount Heparin Sod,Pork in 0.45% 183.84 218.360 NaCl 25,000 unit In 0.45 % NaCl 1 250ml.bag @ 10. 02 UNITS/KG/HR 9.999 mls/ hr IV .Q24H [facility] Rx#: [id number] Other: Voiding Method Toilet # Voids 3 - Labs CBC & Chem 7: 10/13/24 05:37 10/13/24 05:37 Labs: Abnormal Lab Results - Last 24 Hours (Table) 10/12/24 10/12/24 10/13/24 Range/Units 13:05 19:09 05:37 WBC (4.50-10.00) 10*3/uL MCH (27.0-32.0) pg Immature Gran # (0.00-0.04) 10*3/uL Monocytes # (0.20-1.00) 10*3/uL APTT 32.7 H 41.5 H (22.0-30.0) sec Chloride (98-107) mmol/L Glucose (74-99) mg/dL POC Glucose (mg/dL) (70-110) mg/dL HDL Cholesterol 34.80 L (40.00-60.00) mg/dL 10/13/24 10/13/24 10/13/24 Range/Units 05:37 05:37 06:02 WBC 12.88 H (4.50-10.00) 10*3/uL MCH 32.4 H (27.0-32.0) pg Immature Gran # 0.06 H (0.00-0.04) 10*3/uL Monocytes # 1.09 H (0.20-1.00) 10*3/uL APTT (22.0-30.0) sec Chloride 110 H (98-107) mmol/L Glucose 112 H (74-99) mg/dL POC Glucose (mg/dL) 129 H (70-110) mg/dL HDL Cholesterol (40.00-60.00) mg/dL
[2024-10-13] MEDS: LOSARTAN 25 MG TAB PO STA (12:07)
[2024-10-13] MEDS: IV FLUID CONTINUATION 1,000 ML IV ONE (13:04)
[2024-10-13] MEDS: fentaNYL (PF) 50 MCG/ML 2 ML AMP IVP ONE (13:15)
[2024-10-13] MEDS: MIDAZOLAM 2 MG/2 ML VIAL IVP ONE (13:15)
[2024-10-13] MEDS: LIDOCAINE 1% INJ 10MG/ML (20 ML MDV) SQ ONE (13:17)
[2024-10-13] MEDS: VERAPAMIL SYRINGE (5 MG/10 ML) INTRAARTER ONE (13:18)
[2024-10-13] MEDS: HEPARIN SODIUM 1,000 UN/ML (10ML VL) IV ONE (13:22)
[2024-10-13] MEDS: HEPARIN SODIUM,PORCINE 10,000 UNIT in SODIUM CHLORIDE 0.9% 1,000 ML IRRIGATION PRN (13:26)
[2024-10-13] MEDS: HEPARIN SODIUM,PORCINE (1 ML) 2,500 UNIT in SODIUM CHLORIDE 0.9% 250 ML IRRIGATION PRN (13:26)
[2024-10-13] MEDS: NITROGLYCERIN 1000MCG/10ML SYRINGE INTRACORON ONE (13:28)
--- NOTE | 2024-10-13 13:59 | P.CARDCATH ---
Date of Procedure: 10/13/24 Description of Procedure: DIAGNOSTIC CORONARY ANGIOGRAPHY and LEFT HEART CATH REPORT PROCEDURES PERFORMED: Left heart catheterization Selective coronary angiography Moderate conscious sedation 23 mins [Ultrasound assisted] Right radial access INDICATION: NSTEMI BRIEF HPI: 48-year-old presented because of substernal chest pressure. He also has history of hypertension. On admission he had evidence of elevated troponin. He is a daily marijuana user CONSENT: I have explained the procedural steps of above-mentioned procedures in layman's terms to the patient. I discussed the risks (including but not limited to stroke, emergent vascular or cardiac surgery or ), benefits and alternative therapies for the above-mentioned procedure. I discussed the risks of sedation/analgesia and blood product administration (if indicated). The patient has indicated understanding and acceptance of these risks. Conscious Sedation: Patient's ECG, heart rate, blood pressure, pulse oximetry were monitored throughout the duration of procedure under my direct supervision. [2] mg Versed and [50] mcg Fentanyl were used for induction of moderate conscious sedation. Total duration of moderate concious sedation 23 minutes. PROCEDURAL DETAILS: Patient was prepped and draped in sterile fashion. 1% lidocaine was infiltrated over the right radial artery. Right radial access was obtained via modified seldinger technique. [Ultrasound was used for radial access]. Medications: 5mg of verapamil was administed in the radial sheet. 5000 Units of Heparin was administed once the catheter reached the aortic root Wires and Catheter used: J wire was advanced under fluroscopy to get to aortic root. 5 comoran JR 4 diagnostic catheter was utilized obtain left ventricular pressure and pressure gradint across aortic valve. 5 comoran JR 4 diagnostic catheter was used to selectively engage the right coronary ostium. 5 comoran JL 3.5 diagnostic catheter was utilized to selectively engage the left coronary ostium. Angiographic images were reviewed in detail. Catheter and wire were removed. Radial sheet was flushed. The right radial sheath was removed and a TR band was placed. Patent hemostasis was achieved. The patient tolerated the procedure well. Patient was transported back to the post catheterization holding area in stable condition. TECHNICAL DETAILS Total radiation: 281 mGy Total contrast used: Isovue 70 ml Complications: [none] Estimated Blood loss: less than 15 ml HEMODYNAMICS: Aortic Pressure: 136/82 mmHg. LV pressure: 131/1 mmHg. LVEDP 10 mmHg. There was no significant gradient across the aortic valve. SELECTIVE CORONARY ARTERIOGRAPHY: LEFT MAIN: The left main is short and large caliber vessel. It bifurcates into the LAD and circumflex. Left main appears angiographically normal. LEFT ANTERIOR DESCENDING CORONARY ARTERY: LAD is large caliber and reaches up to the apex. Initial 1/3 proximal LAD is patent, distal to the proximal LAD has 40% disease. Gives rise to a very small diagonal 1 branch. After the origin of diagonal 1, there is 90% tubular stenosis in LAD up to the bifurcation of diagonal 2. The mid LAD distal to diagonal 2 has 50-60% disease, involving the bifurcation site in Lockhart 1,1,1 fashion. The ostium of diagonal 2 has 80 to 90% stenosis. Diagonal 2 is a large and long caliber vessel and appears patent. Distal LAD is patent with mild luminal irregularity. LEFT CIRCUMFLEX CORONARY ARTERY: It is nondominant vessel. LCx is moderate caliber. Initial 2/3 proximal LCx has mild disease. Distal 1/3 LCx has 60 to 70% disease before giving a medium caliber OM 2 branch which is long vessel. After giving OM 2 mid LCx continues to give small caliber OM 3 and small AV groove branch which has mild diffuse disease but appears patent. Proximal OM 2 has 30 to 40% disease, mid OM 2 has 30 to 40% disease otherwise patent. RIGHT CORONARY ARTERY: Dominant vessel. Proximal RCA is patent with mild luminal irregularity. Mid RCA has 70% hazy stenosis. Distal RCA appears patent. Distally it bifurcates into medium caliber PDA and PL branch. Mid PL branch has 60 to 70% disease. IMPRESSION: 90% mid LAD, involving the diagonal 2 bifurcation and Lockhart 111 fashion 80-90% ostial diagonal 2 70% mid RCA 50-60% proximal LCx PLAN: CABG evaluation, consult CT surgery Performing Physician Harjit Ashby MD, FACC, RPVI Thank you for allowing [facility] to participate in this patient's care. Feel free to reach out in case of any followup questions.
[2024-10-13] MEDS: IOPAMIDOL-370 100ML BTL INJ ONE (14:00)
[2024-10-13] MEDS ORDERED: RX INFO: IV CONTRAST WAS GIVEN 1 EACH MISC MISCELLANE PRN (14:11)
[2024-10-13] MEDS: SODIUM CHLORIDE 0.9% 1,000 ML IV SCH (14:34)
[2024-10-13] MEDS: ALPRAZolam 0.5 MG TAB PO PRN (15:00)
[2024-10-13] MEDS ORDERED: LORazepam 1 MG/0.5 ML VIAL IV PRN (15:38)
--- NOTE | 2024-10-13 15:41 | P.GSCN ---
History of Present Illness Consult date: 10/13/24 Reason for Consult: Multivessel coronary artery disease, non-ST elevated myocardial infarction this admission Requesting physician: Luanne Pryor History of present illness: This is a 48-year-old gentleman who follows on an outpatient basis with a family physician from [facility] Dr. Reyna. He has a past medical history significant for hypertension, currently not taking any medication for treatment of his hypertension, poor dentition, family history of early onset coronary artery disease with his brother, anxiety, history of tobacco dependence in the form of chewing tobacco, remote history of smoking quit smoking 15 years ago, and daily marijuana use smoking 8-10 joints daily. He presented to the emergency department here at [facility] with complaints of intermittent central nonradiating chest pain over a 3-day period. He denies any recent fever, chills, nausea, vomiting, shortness of breath, constipation, diarrhea, headache, palpitations, presyncope or syncope. He does admit to becoming diaphoretic during the episodes of chest pain. He states that the chest pain started on Friday, and was relieved with rest, although the patient reports on Friday he pretty much had pain throughout the day. He was at a taoism camp here locally in [place], and he was seen by the Nurse who recommended he present to the emergency department for further evaluation and treatment recommendations. Initial laboratory results showed a WBC count 11.52, hemoglobin 15.3, hematocrit 43.1, platelets 308, PT 10.3, INR 0.9, PTT 22.7, D- dimer 0.18, sodium 139, potassium 4.3, chloride 106, CO2 23, BUN 11, creatinine 0.81, glucose 114, calcium 9.6, magnesium 1.6, AST 27, ALT 27, proBNP 92, and troponins elevated as high as 0.068. Due to the patient's presenting symptoms and elevated troponins he was ruled in for a non-ST elevated myocardial infarction. A twelve-lead EKG was completed which showed normal sinus rhythm heart rate 76 bpm. A chest x-ray was completed which showed a possible underlying COPD, with no definite acute process. Cardiology was consulted and on October 12, 2024 the patient underwent a transthoracic 2D echocardiogram which demonstrated a left ventricular ejection fraction to be estimated at 55 to 60%, trace mitral valve regurgitation, trace to mild aortic valve regurgitation, trace tricuspid valve regurgitation, trace pulmonic valve regurgitation, and a normal size aortic root and proximal ascending aorta. The patient was recommended to undergo a cardiac catheterization which was completed today and revealed a 90% stenosis to his mid left anterior descending coronary artery, and 80 to 90% stenosis to his ostial diagonal 2, a 50 to 60% stenosis to his proximal left circumflex coronary artery and a 70% stenosis to his mid right coronary artery. Subsequently, due to the findings on the cardiac catheterization a consult was placed to cardiothoracic surgery for further evaluation and treatment recommendations. Review of Systems A review of systems was completed and was negative except as mentioned in the HPI. Past Medical History Past Medical History: Hypertension History of Any Multi-Drug Resistant Organisms: None Reported Past Surgical History: Hernia Repair (Right inguinal), Tonsillectomy Past Anesthesia/Blood Transfusion Reactions: No Reported Reaction Past Psychological History: Anxiety Smoking Status: Former smoker (Uses chewing tobacco daily) Past Alcohol Use History: None Reported Past Drug Use History: Marijuana Additional Drug Use History / Comment(s): smokes marijuana 8-10 joints per day - Past Family History Brother(s) Family Medical History: Coronary Artery Disease (CAD), CVA/TIA, Diabetes Sue litus Additional Family Medical History / Comment(s): TIA Father Family Medical History: Cancer Additional Family Medical History / Comment(s): throat cancer- Mother Family Medical History: Sleep Apnea/CPAP/BIPAP Additional Family Medical History / Comment(s): Chronic pain after a MVA Medications and Allergies Home Medications Medication Instructions Recorded Confirmed Type No Known Home Medications 10/11/24 10/11/24 History Allergies Allergy/AdvReac Type Severity Reaction Status Date / Time acetaminophen AdvReac Chest Pain Verified 10/11/24 12:43 [From Tylenol-Codeine] codeine AdvReac Chest Pain Verified 10/11/24 12:43 [From Tylenol-Codeine] Surgical - Exam Vital Signs Temp Pulse Resp BP Pulse Ox 97.7 F 84 19 158/115 99 10/11/24 09:43 10/11/24 09:43 10/11/24 09:43 10/11/24 09:43 10/11/24 09:43 - General well developed, well nourished, no distress, no pain - Eyes PERRL, normal ocular movement, no pale, no icteric - ENT normal pinna, normal nares, normal mucosa, no hearing loss, no congestion, poor senior living, dentures (Upper plate) - Neck Neck is supple, no lymphadenopathy. no masses, no bruits, trachea midline, no venous distension - Respiratory Lung sounds essentially clear throughout. No wheezes, rhonchi or crackles. Respirations are symmetrical and nonlabored. - Cardiovascular Regular rhythm and rate. S1 and S2 present, negative for S3, gallop or murmur. - Abdomen Abdomen is soft, nontender and nondistended. Active bowel sounds present all 4 abdominal quadrants. No guarding rigidity. - Genitourinary Deferred - Rectum Deferred - Integumentary Skin is warm and dry. No clubbing or cyanosis is present. no rash, no growths, no abnormal pigmentation - Neurologic No focal deficits. normal coordination, normal sensation - Musculoskeletal Moves all 4 extremities with equal strength bilateral. normal gait, normal posture - Psychiatric oriented to time, oriented to person, oriented to place, speech is normal, memory intact Results - Labs 10/13/24 05:37 10/13/24 05:37 Abnormal Lab Results - Last 24 Hours (Table) 10/12/24 10/12/24 10/13/24 Range/Units 13:05 19:09 05:37 WBC (4.50-10.00) 10*3/uL MCH (27.0-32.0) pg Immature Gran # (0.00-0.04) 10*3/uL Monocytes # (0.20-1.00) 10*3/uL APTT 32.7 H 41.5 H (22.0-30.0) sec Chloride (98-107) mmol/L Glucose (74-99) mg/dL POC Glucose (mg/dL) (70-110) mg/dL HDL Cholesterol 34.80 L (40.00-60.00) mg/dL 10/13/24 10/13/24 10/13/24 Range/Units 05:37 05:37 06:02 WBC 12.88 H (4.50-10.00) 10*3/uL MCH 32.4 H (27.0-32.0) pg Immature Gran # 0.06 H (0.00-0.04) 10*3/uL Monocytes # 1.09 H (0.20-1.00) 10*3/uL APTT (22.0-30.0) sec Chloride 110 H (98-107) mmol/L Glucose 112 H (74-99) mg/dL POC Glucose (mg/dL) 129 H (70-110) mg/dL HDL Cholesterol (40.00-60.00) mg/dL Diabetes panel 10/12/24 10/12/24 10/13/24 Range/Units 13:05 13:05 05:37 Sodium 139 (137-145) mmol/L Potassium 3.9 (3.5-5.1) mmol/L Chloride 110 H (98-107) mmol/L Carbon Dioxide 22 (22-30) mmol/L BUN 10 (9-20) mg/dL Creatinine 0.78 (0.66-1.25) mg/dL Glucose 112 H (74-99) mg/dL Hemoglobin A1c 5.8 (<=6.0) % Calcium 8.6 (8.4-10.2) mg/dL Triglycerides 146.00 (0.00-149.00) mg/dL HDL Cholesterol 34.80 L (40.00-60.00) mg/dL Calcium panel 10/13/24 Range/Units 05:37 Calcium 8.6 (8.4-10.2) mg/dL Pituitary panel 10/13/24 Range/Units 05:37 Sodium 139 (137-145) mmol/L Potassium 3.9 (3.5-5.1) mmol/L Chloride 110 H (98-107) mmol/L Carbon Dioxide 22 (22-30) mmol/L BUN 10 (9-20) mg/dL Creatinine 0.78 (0.66-1.25) mg/dL Glucose 112 H (74-99) mg/dL Calcium 8.6 (8.4-10.2) mg/dL Adrenal panel 10/13/24 Range/Units 05:37 Sodium 139 (137-145) mmol/L Potassium 3.9 (3.5-5.1) mmol/L Chloride 110 H (98-107) mmol/L Carbon Dioxide 22 (22-30) mmol/L BUN 10 (9-20) mg/dL Creatinine 0.78 (0.66-1.25) mg/dL Glucose 112 H (74-99) mg/dL Calcium 8.6 (8.4-10.2) mg/dL - Imaging Chest x-ray: report reviewed, image reviewed EKG: image reviewed Additional studies: Cardiac catheterization results and transthoracic 2D echocardiogram results reviewed. Assessment and Plan Assessment: Multivessel coronary artery disease per heart catheterization Non-ST elevated myocardial infarction this admission Chest pain with elevated troponins, secondary to above History of hypertension, not taking any antihypertension medications as an outpatient Chronic ongoing tobacco use in the form of chewing tobacco, quit smoking 15 years ago Daily marijuana use, smoking 8-10 joints per day Poor dentition Plan: The patient was seen and examined at his bedside on the third floor cardiac stepdown unit. The patient's and daughter present at his bedside. His chart and diagnostics were reviewed. Discussed his case with Dr. Issa from cardiothoracic surgery. Preoperative testing and preoperative teaching has been initiated. The usual course of myocardial revascularization surgery has been discussed with the patient and his family members present at his bedside. Once the patient's preoperative testing has been completed and results reviewed, an STS risk core will be calculated and discussed with the patient. Once the patient is able to ambulate a 5 m walk test will be completed with the patient. A clinical frailty score was calculated and equals 1. Continue to maximize medical management with aspirin, statin and beta-kandy. Medical management other comorbidities per primary care and cardiology services. More recommendati ons to follow based on patient's clinical course and as the patient's preoperative testing has been obtained. Timing of surgery to follow. An Juan's test was completed to the patient's left arm with less than 5-second return of circulation. Thank you Dr. Crespo for this consult and will look forward to working with you in the care of this patient. I have personally seen and examined the patient, performed the documentation and the assessment and plan as written. Number of minutes spent on the visit: 30. RY Sexton
[2024-10-13 16:11] LABS: Glucose,Whole Blood 93 mg/dL (70-110)
[2024-10-13 16:45] LABS: Basophils # (A) 0.07 10*3/uL (0.00-0.10); Basophils % (A) 0.5 %; Eosinophils # (A) 0.08 10*3/uL (0.04-0.35); Eosinophils % (A) 0.6 %; HCT 40.7 % (39.6-50.0); HGB 14.6 g/dL (13.0-17.0); Lymphocytes # (A) 4.18 10*3/uL (0.90-5.00); Lymphocytes % (A) 32.2 %; MCH 32.4 pg (27.0-32.0); MCHC 35.9 g/dL (32.0-37.0); MCV 90.4 fL (80.0-97.0); Monocytes # (A) 0.96 10*3/uL (0.20-1.00); Monocytes % (A) 7.4 %; Neutrophils # (A) 7.65 10*3/uL (1.80-7.70); Neutrophils % (A) 59.0 %; Platelet Count 300 10*3/uL (140-440); RBC 4.50 10*6/uL (4.40-5.60); RDW 12.0 % (11.5-14.5); WBC 12.98 10*3/uL (4.50-10.00)
--- NOTE | 2024-10-13 16:50 | US ---
EXAMINATION TYPE: US carotid duplex BILAT DATE OF EXAM: 10/13/2024 COMPARISON: NONE CLINICAL INDICATION: Male, 48 years old with history of Pre-Op Cardiac Surgery; open heart Additional History: .... TECHNIQUE: Grayscale, color Doppler and spectral Doppler evaluation of the bilateral carotid systems and vertebral arteries. Indirect Doppler criteria was utilized. 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 Spectral waveforms are within normal limits. IMPRESSION: 1. No significant flow-limiting stenosis based on velocities Criteria for Assigning % of Stenosis / Diameter reduction (Estimation based on the indirect measurements of the internal carotid artery velocities (ICA PSV). 1. Normal (no stenosis)=ICA PSV < 180 cm/s: ratio < 2.0: ICA EDV<40 cm/s. 2. Less than 50% stenosis=ICA PSV < 180 cm/s: ratio < 2.0: ICA EDV<40 cm/s. 3. 50 to 69% stenosis=ICA PSV of 180 to 230 cm/s: ration 2.0 ? 4.0: ICA EDV 40-100 cm/s. PSV 125-180 cm/sec and ICA/CCA PSV Ratio ? 2.0 is also consistent with 50-69% stenosis 4. Greater than 70% stenosis to near occlusion= ICA PSV > 230 cm/s: ratio > 4.0: ICA EDV > 100 cm/s. 5. Near occlusion= ICA PSV velocities may be low or undetectable: variable ratio and ICA EDV. 6. Total occlusion=unable to detect flow. [facility], , 10/13/2024 4:48 PM
--- NOTE | 2024-10-13 16:51 | US ---
EXAMINATION TYPE: Pre-Operative Non-Invasive Evaluation of the hand for Potential Radial Artery Tien bond, Measurements only DATE OF EXAM: 10/13/2024 4:05 PM CLINICAL INDICATION: Male, 48 years old with history of Pre-Op Cardiac Surgery; Open heart, Preop- Ca rdiac Surgery TECHNIQUE:Grayscale and color Doppler imaging of the radial artery(s) SIDE PERFORMED: Left FINDINGS: Dominant hand: Right Duplex Findings: Radial Artery: Color flow seen Measurements in mm, transverse view: Left Radial Proximal: 3.6 x 2.5 mm Mid: 2.9 x 2.6 mm Distal: 3.5 x 2.4 mm IMPRESSION: 1. No evidence for vascular occlusion. 2. Measurements as described above. [facility], , 10/13/2024 4:48 PM
--- NOTE | 2024-10-13 16:53 | US ---
EXAMINATION TYPE: US vein mapping BILAT DATE OF EXAM: 10/13/2024 4:05 PM COMPARISON: NONE CLINICAL INDICATION: Male, 48 years old with history of PreOp Cardiac Surgery; open heart, Preop- Car diac Surgery TECHNIQUE: Grayscale and color Doppler imaging of the lower extremity venous system. SIDE PERFORMED: Bilateral FINDINGS: DUPLEX FINDINGS: Greater Saphenous: Color flow seen Lesser Saphenous: Color flow seen Measurements in mm: Right Greater Saphenous: Groin: 7.0 x 5.0 mm High Thigh: 3.9 x 1.8 mm Mid Thigh: 2.9 x 1.7 mm Above Knee: 3.5 x 2.1 mm Knee: 1.6 x 1.4 mm Below Knee: 2.3 x 1.8 mm Mid Calf: 1.9 x 1.7 mm At Ankle: 2.4 x 1.4 mm Left Greater Saphenous: Groin: 7.1 x 3.7 mm High Thigh: 3.3 x 2.2 mm Mid Thigh: 2.9 x 2.0 mm Above Knee: 3.2 x 2.3 mm Knee: 3.2 x 2.7 mm Below Knee: 2.7 x 1.6 mm Mid Calf: 1.4 x 1.4 mm At Ankle: 2.2 x 1.2 mm IMPRESSION: 1. No evidence for occlusion. 2. GSV measurements listed above. 3. Performing surgeon to determine viability as conduit. [facility], , 10/13/2024 4:50 PM
[2024-10-13 17:06] LABS: Anion Gap 11 mmol/L; Blood Urea Nitrogen 9 mg/dL (9-20); Carbon Dioxide 21 mmol/L (22-30); Chloride 108 mmol/L (98-107); Glucose 85 mg/dL (74-99); Potassium 3.8 mmol/L (3.5-5.1); Sodium 140 mmol/L (137-145)
[2024-10-13 17:07] LABS: ALT 37 U/L (4-49); AST 29 U/L (17-59); African American GFR (CKD) >90 (>60 ml/min/1.73 sqM); Albumin 4.2 g/dL (3.5-5.0); Alkaline Phosphatase 77 U/L (38-126); Calcium 9.2 mg/dL (8.4-10.2); Magnesium 2.0 mg/dL (1.6-2.3); Non-African American GFR(CKD) >90 (>60 ml/min/1.73 sqM); Total Protein 6.7 g/dL (6.3-8.2)
[2024-10-13 20:04] LABS: Glucose,Whole Blood 151 mg/dL (70-110)
[2024-10-13] MEDS: ATORVASTATIN 80 MG TAB PO SCH (20:46)
[2024-10-13] MEDS: MUPIROCIN 2% OINT 22 GM TUBE NASAL SCH (20:56)
[2024-10-13 22:25] LABS: Bilirubin,Urine Negative (Negative); Blood,Urine Negative (Negative); Color,Urine Colorless; Glucose,Urine (UA) Negative (Negative); Ketones,Urine Negative (Negative); Leukocyte Esterase,Urine Negative (Negative); Nitrite,Urine Negative (Negative); PH, Urine 7.0 (5.0-8.0); Protein,Urine Negative (Negative); Specific Gravity,Urine 1.030 (1.001-1.035); Urobilinogen,Urine <2.0 mg/dL (<2.0)
--- NOTE | 2024-10-14 00:43 | CT ---
EXAMINATION TYPE: CT chest wo con DATE OF EXAM: 10/13/2024 7:02 PM COMPARISON: None. CLINICAL INDICATION: Male, 48 years old with history of Preoperative CABG, evaluate aorta, Preoperati ve CABG, evaluate aorta TECHNIQUE: Axial images were obtained at 5 mm thick sections. Reconstructed images are reviewed on [employer] computer in the coronal plane. Contrast used: mL of , (none if empty) Oral contrast used: (none if empty) CT DLP: 387.3 mGycm, Automated exposure control for dose reduction was used. FINDINGS: Portion of the thyroid visualized is normal. No suspicious lung nodules or focal infiltrates are present. No enlarged mediastinal or hilar adenopathy is evident. The ascending aorta diameter at the level o f the main pulmonary artery is 3.8 cm. The main pulmonary artery diameter at the bifurcation is 2.6 cm. The aorta tapers normally to its visualized course. Very minimal calcifications at the aortic arc h. No other significant calcifications within the thoracic aorta. Some vascular calcifications in the proximal abdominal aorta. Moderate coronary artery calcifications present. Limited CT sections are obtained through the upper abdomen. Renal artery calcifications are present. Largest in the mid posterior left kidney measures 0.7 cm. Largest on the right in the mid pole measur es 0.5 cm. IMPRESSION: 1. Thoracic aorta tapers normally through its visualized course. Minimal vascular calcification in th e upper abdominal aorta. 2. Bilateral nonobstructing renal calcifications. [facility], , 10/14/2024 12:41 AM
[2024-10-14 03:05] LABS: Hepatitis A Antibody IgM Nonreactive (Nonreactive); Hepatitis B Surface Antigen Nonreactive (Nonreactive); Hepatitis C IgG Antibody Nonreactive (Nonreactive)
--- NOTE | 2024-10-14 05:40 | P.PN ---
Subjective Progress Note Date: 10/13/24 This is a pleasant 48-year-old male who presented to the emergency department with chest pain. Patient reports he was [place] [employer] and walking [id number] doing things throughout the day started having midsternal chest pain that was sharp and intense and intermittent at times although progressively became worse over the day and was persistent and was brought here by family for further evaluation. Patient reports he follows with Dr. Renya in the [place] area as patient resides there and no significant past medical history other than previous history of hypertension although blood pressures have improved and patient was not taking any medications for them. Patient denies alcohol use or tobacco use but does admit to using marijuana on occasion. Labs reviewed on admission reveal a mildly elevated white count of 11.52, hemoglobin 15.3, platelets 308, D-dimer 0.18, sodium 139 with a potassium of 4.3, BUN 11, creatinine 0.81, magnesium 1.6, initial troponin 0.068, repeat is 0.060, third troponin is 0.051, BNP was 92 and lipase is 434. Patient did admit to some abdominal discomfort when experiencing this pain. Chest x-ray reveals possible underlying COPD otherwise no definitive acute process, EKG shows sinus rhythm and a heart rate of 76 bpm. Patient being admitted and started on IV heparin with cardiology on consultation.. 10/12/2024 Patient is seen in follow-up today currently n.p.o. maintained on heparin and patient is scheduled to undergo cardiac catheterization with cardiology sometime today although unsure of what time. Patient is extremely anxious on exam with significant other at the bedside with questions and concerns that were answered to the best of her ability. Patient continues to report some intermittent chest discomfort although feels he is mostly having withdrawal effects from marijuana as he uses this daily and frequently throughout the day. Patient does have as needed anxiety medications and will continue as needed. Follow-up on repeat labs and continue telemetry monitoring. 10/13/2024 Patient is seen in follow-up today remains n.p.o. maintained on heparin scheduled to undergo cardiac catheterization today. Patient continues to be extremely anxious and reports she is severely nauseated although he feels this is due to n.p.o. status. Recommend mouth swabs and complete n.p.o. for now until cleared by cardiology. This was discussed with family as well as patient at bedside and they are agreeable. Will await official cardiac cath irrigation report as patient also reports he would like to go home. Patient is afebrile with no reports of further chest pain or shortness of breath. Review of systems: Constitutional: No reports of fatigue, fever, or chills, reports extreme anxiety Cardiovascular: No reports of chest pain or palpitations Respiratory: No reports of shortness of breath or cough GI: reports of intermittent nausea, no vomiting, or diarrhea : No reports of dysuria or retention Neurovascular: No reports of weakness or numbness All medications have been reviewed The rest of the 14-point review of systems is negative. PHYSICAL EXAMINATION: GENERAL: The patient is alert and oriented x3, anxious on exam. Well developed, well nourished. Obese HEENT: Pupils are round and equally reacting to light. EOMI. No scleral icterus. No conjunctival pallor. Normocephalic, atraumatic. No pharyngeal erythema. No thyromegaly. CARDIOVASCULAR: S1 and S2 present. No murmurs, rubs, or gallops. PULMONARY: Chest is clear to auscultation, no wheezing or crackles. ABDOMEN: Soft, nontender, nondistended, normoactive bowel sounds. No palpable organomegaly. MUSCULOSKELETAL: No joint swelling or deformity. EXTREMITIES: No cyanosis, clubbing, or pedal edema. NEUROLOGICAL: Gross neurological examination did not reveal any focal deficits. SKIN: No rashes. Assessment: Chest pain,acute NSTEMI, troponins minimally elevated, awaiting to undergo cardiac catheterization this afternoon 10/13/2024 Extensive daily THC use History of hypertension although not taking any medications per patient Obesity with a BMI of 32.5 GI prophylaxis DVT prophylaxis Full code Plan: Patient was admitted for cardiology evaluation and continued on IV heparin as patient had elevated troponins as mentioned previously. Patient did undergo cardiac catheterization today which revealed 90% mid LAD and significant triple- vessel disease recommending cardiothoracic consultation and CABG consultation. Patient will undergo further testing and will await clearance from and/or the need for surgical intervention during this hospitalization. Follow-up on repeat labs in monitor kidney functions and electrolytes closely Encourage increase activity as tolerated Continue anxiety medications as needed The impression and plan of care has been dictated by Rachelle Johnson, Nurse Practitioner as directed. Dr. Eulalio MD I have performed a history and examination and MDM of this patient, discussed the same with the dictator, and agree with the dictator's assessment and plan as written ,documented as a scribe. Based on total visit time, I have performed more than 50% of the visit. Objective - Vital Signs Vital signs: Vital Signs Temp 98.1 F 10/13/24 08:20 Pulse 87 10/13/24 08:20 Resp 16 10/13/24 08:20 BP 149/107 10/13/24 08:20 Pulse Ox 98 10/13/24 08:20 FiO2 Intake & Output 10/12/24 10/13/24 10/13/24 18:59 06:59 18:59 Intake Total 183.84 218.360 Balance 183.84 218.360 Weight 100 kg 86.5 kg Intake: Intake, IV Titration 183.84 218.360 Amount Heparin Sod,Pork in 0.45% 183.84 218.360 NaCl 25,000 unit In 0.45 % NaCl 1 250ml.bag @ 10. 02 UNITS/KG/HR 9.999 mls/ hr IV .Q24H [facility] Rx#: [id number] Other: Voiding Method Toilet # Voids 3 - Labs CBC & Chem 7: 10/13/24 16:32 10/13/24 16:32 Labs: Abnormal Lab Results - Last 24 Hours (Table) 10/12/24 10/12/24 10/13/24 Range/Units 13:05 19:09 05:37 WBC (4.50-10.00) 10*3/uL MCH (27.0-32.0) pg Immature Gran # (0.00-0.04) 10*3/uL Monocytes # (0.20-1.00) 10*3/uL APTT 32.7 H 41.5 H (22.0-30.0) sec Chloride (98-107) mmol/L Glucose (74-99) mg/dL POC Glucose (mg/dL) (70-110) mg/dL HDL Cholesterol 34.80 L (40.00-60.00) mg/dL 10/13/24 10/13/24 10/13/24 Range/Units 05:37 05:37 06:02 WBC 12.88 H (4.50-10.00) 10*3/uL MCH 32.4 H (27.0-32.0) pg Immature Gran # 0.06 H (0.00-0.04) 10*3/uL Monocytes # 1.09 H (0.20-1.00) 10*3/uL APTT (22.0-30.0) sec Chloride 110 H (98-107) mmol/L Glucose 112 H (74-99) mg/dL POC Glucose (mg/dL) 129 H (70-110) mg/dL HDL Cholesterol (40.00-60.00) mg/dL
[2024-10-14 06:10] LABS: Glucose,Whole Blood 136 mg/dL (70-110)
[2024-10-14 08:16] LABS: HCT 43.2 % (39.6-50.0); HGB 15.3 g/dL (13.0-17.0); MCH 32.8 pg (27.0-32.0); MCHC 35.4 g/dL (32.0-37.0); MCV 92.5 fL (80.0-97.0); Platelet Count 316 10*3/uL (140-440); RBC 4.67 10*6/uL (4.40-5.60); RDW 12.0 % (11.5-14.5); WBC 13.13 10*3/uL (4.50-10.00)
[2024-10-14 08:28] LABS: African American GFR (CKD) >90 (>60 ml/min/1.73 sqM); Anion Gap 10 mmol/L; Blood Urea Nitrogen 12 mg/dL (9-20); Calcium 9.5 mg/dL (8.4-10.2); Carbon Dioxide 24 mmol/L (22-30); Chloride 106 mmol/L (98-107); Glucose 132 mg/dL (74-99); Magnesium 2.0 mg/dL (1.6-2.3); Non-African American GFR(CKD) >90 (>60 ml/min/1.73 sqM); Potassium 4.1 mmol/L (3.5-5.1); Sodium 140 mmol/L (137-145)
[2024-10-14] MEDS: LOSARTAN 50 MG TAB PO SCH (08:42)
--- NOTE | 2024-10-14 08:46 | P.PN ---
Subjective Progress Note Date: 10/14/24 Principal diagnosis: Multivessel coronary artery disease, non-ST elevated myocardial infarction this admission. Past medical history significant for hypertension, currently not ta gladys any medication for treatment of his hypertension, poor dentition, family history of early onset coronary artery disease with his brother, anxiety, history of tobacco dependence in the form of chewing tobacco, remote history of smoking quit smoking 15 years ago, and daily marijuana use smoking 8-10 joints daily. The patient was seen and examined in follow-up today October 14, 2024 at his bedside on the third floor cardiac stepdown unit. He is currently sitting up to his bedside edge, eating his breakfast, is awake, alert, oriented x 3 and is in no acute apparent distress. His daughter is present at his bedside. He denies any further complaints of chest pain/pressure and denies any complaints of nausea or further episodes of diaphoresis. A 5 m walk test was completed with the patient today with time 1: 2.80 seconds, time 2: 2.35 seconds, time 3: 1.95 seconds. He tolerated the walk test well and denied any complaints of discomfort during the walk test. Oxygen saturations are 98% on room air. His FEV1 pulmonary test is pending. A CT scan of the chest was completed yesterday without contrast which showed his thoracic aorta to taper normally through its visualized course, minimal vascular calcifications in the upper abdominal aorta and bilateral nonobstructive renal calcifications. His carotid Doppler showed no significant flow-limiting stenosis based on his velocities. Once the patient's preoperative testing has been completed an STS risk or will be calculated and discussed with the patient. Laboratory results reviewed. Objective - Vital Signs Vital signs: Vital Signs Temp 98.1 F 10/13/24 20:00 Pulse 70 10/14/24 04:00 Resp 16 10/14/24 04:00 BP 148/81 10/14/24 04:00 Pulse Ox 98 10/14/24 04:00 FiO2 Intake & Output 10/13/24 10/14/24 10/14/24 18:59 06:59 18:59 Intake Total 100 250 Balance 100 250 Weight 86.7 kg Intake: IV 100 10 Invasive Line 1 10 Oral 0 240 Other: Voiding Method Toilet Toilet # Voids 1 - Exam CONSTITUTIONAL: appears comfortable, cooperative, no apparent acute distress. HEENT: Neck is supple, no JVD, no lymphadenopathy. Poor dentition. RESPIRATORY: Lungs sounds essentially clear throughout. Respirations are symmetrical and nonlabored. Currently on room air with oxygen saturations 98%. Strong cough. CARDIOVASCULAR: Regular rhythm and rate. S1 and S2 present, negative for S3, gallop or murmur. No calf pain or tenderness noted. GASTROINTESTINAL: Abdomen soft, nontender, nondistended. Active bowel sounds present 4 quadrants. Tolerating diet. Passing flatus. No guarding or rigidity. GENITOURINARY: Continues to void. INTEGUMENTARY: Skin is warm and dry with no evidence of clubbing or cyanosis. NEUROLOGIC: Cranial nerves II through XII intact. No focal deficits. MUSKULOSKELETAL: Able to move all extremities, strength equal bilaterally. PSYCHIATRIC: Alert and oriented to person place and time, appropriate affect, intact judgment and insight. - Allied health notes Allied health notes reviewed: nursing - Labs CBC & Chem 7: 10/14/24 07:39 10/14/24 07:39 Labs: Abnormal Lab Results - Last 24 Hours (Table) 10/13/24 10/13/24 10/13/24 Range/Units 16:32 16:32 20:03 WBC 12.98 H (4.50-10.00) 10*3/uL MCH 32.4 H (27.0-32.0) pg Chloride 108 H (98-107) mmol/L Carbon Dioxide 21 L (22-30) mmol/L Creatinine 0.62 L (0.66-1.25) mg/dL Glucose (74-99) mg/dL POC Glucose (mg/dL) 151 H (70-110) mg/dL 10/14/24 10/14/24 10/14/24 Range/Units 06:08 07:39 07:39 WBC 13.13 H (4.50-10.00) 10*3/uL MCH 32.8 H (27.0-32.0) pg Chloride (98-107) mmol/L Carbon Dioxide (22-30) mmol/L Creatinine (0.66-1.25) mg/dL Glucose 132 H (74-99) mg/dL POC Glucose (mg/dL) 136 H (70-110) mg/dL - Imaging and Cardiology CT scan - chest: report reviewed, image reviewed Carotid duplex study results reviewed. Assessment and Plan Assessment: Multivessel coronary artery disease per heart catheterization Non-ST elevated myocardial infarction this admission Chest pain with elevated troponins, secondary to above History of hypertension, not taking any antihypertension medications as an outpatient Chronic ongoing tobacco use in the form of chewing tobacco, quit smoking 15 years ago Daily marijuana use, smoking 8-10 joints per day Poor dentition (1) NSTEMI (non-ST elevated myocardial infarction) Current Visit: Yes Status: Acute Code(s): I21.4 - NON-ST ELEVATION (NSTEMI) MYOCARDIAL INFARCTION SNOMED Code(s): 73690244 Plan: Preoperative testing remains in progress, FEV1 test remains pending. Preoperative teaching has been reinforced with the patient. A 5 m walk test was completed with the patient, time 1: 2.80 seconds, time 2: 2.35 seconds, time 3: 1.95 seconds. The patient was seen and evaluated by Dr. Bradley Issa from cardiothoracic surgery yesterday, timing of surgery pending, but the patient will be scheduled for myocardial revascularization surgery, with left internal mammary artery, endoscopic vein harvest, left radial artery endoscopic harvest, exclusion left atrial appendage and intraoperative transesophageal echocardiogram. Continue to maximize medical management with aspirin, statin and beta-kandy. Medical management of other comorbidities per internal medicine and cardiology service. More recommendations to follow based on patient's clinical course. Patient seen and examined. Cath and echo and preop testing reviewed. STS mortality risk calculated and discussed with patient. Risks, benefits and alternatives were discussed with the patient. He is agreeable to proceed with CABG x 3-4 and LA appendage occlusion tomorrow 10/15/24. Time with Patient: Greater than 30
[2024-10-14] MEDS: METOPROLOL TARTRATE 25 MG TAB PO STA (09:42)
[2024-10-14 11:58] LABS: Glucose,Whole Blood 156 mg/dL (70-110)
--- NOTE | 2024-10-14 12:09 | P.PN ---
Subjective HISTORY OF PRESENT ILLNESS: This is a 48-year-old male with a past medical history significant for hypertension not on medications. Patient does not follow with a residential program manager. We have been asked to see the patient in consultation for chest pain and elevated troponins. Patient examined this morning at the bedside in the emergency room. Patient states over the past couple days he has been having chest discomfort that he initially thought was heartburn. He states he was out fishing with his brother when he developed chest pain. He states additionally yesterday he had another bout of chest pain but thought it maybe was due to the heat. He denies having any abdominal pain. He denies any shortness of breath. He denies any alcohol use. He does report marijuana use. He denies any known history of CAD. Patient was found to have elevated troponins along with elevated lipase. EKG revealed sinus mechanism with early repolarization. 10/13/2024 Patient was scheduled for cardiac catheterization yesterday with Dr. Ashby. However this has been rescheduled for today. Patient examined this morning at bedside. Patient currently denies any chest pain or pressure. Denies any shortness of breath. Vital signs are stable. Echocardiogram completed revealing ejection fraction 55 to 60%, no obvious regional wall motion abnormalities, trace MR, trace to mild aortic regurgitation, trace tricuspid regurgitation. 10/14/2024 Patient is status post cardiac catheterization yesterday with Dr. Ashby revealing 90% mid LAD, 80 to 90% ostial diagonal 2 stenosis, 70% mid RCA stenosis, 50 to 60% proximal circumflex stenosis. CT surgery was consulted for CABG evaluation. Patient examined this morning to bedside. Patient currently denies chest pain or shortness of breath. Vital signs are stable. Blood pressure remains slightly elevated with a systolic in the 150s. PHYSICAL EXAM: VITAL SIGNS: Reviewed. GENERAL: Well-developed in no acute distress. HEENT: Head is normocephalic. Pupils are equal, round. Sclerae anicteric. Mucous membranes of the mouth are moist. Neck supple. No JVD or thyromegaly LUNGS: Respirations even and unlabored. Lungs essentially clear to auscultation bilaterally. HEART: Regular rate and rhythm. S1 and S2 heard. ABDOMEN: Soft. Nondistended. Nontender. EXTREMITIES: Normal range of motion. No clubbing or cyanosis. Peripheral pulses intact. No lower extremity edema NEUROLOGIC: Awake and alert. Oriented x 3. ASSESSMENT: Chest pain with elevated troponins, non-STEMI, status post cardiac catheteri zation revealing multivessel CAD Hypertension, not taking antihypertensive medications on an outpatient basis Elevated lipase, 434 on admission, resolved Marijuana use PLAN: Continue aspirin, atorvastatin and metoprolol Losartan increased to 50 mg yesterday for optimal blood pressure control Increase metoprolol to [address] surgery consulted. Await further recommendations for possible CABG Recommend abstinence against marijuana use Further recommendations pending patient course Nurse practitioner note has been reviewed by physician. Signing provider agrees with the documented findings, assessment, and plan of care documented by INTERNET PROGRAMMER as a scribe. Objective - Vital Signs Vital signs: Vital Signs Temp 97.8 F 10/14/24 08:40 Pulse 74 10/14/24 11:22 Resp 17 10/14/24 11:22 BP 137/88 10/14/24 11:22 Pulse Ox 97 10/14/24 11:22 FiO2 Intake & Output 10/13/24 10/14/24 10/14/24 18:59 06:59 18:59 Intake Total 100 250 120 Balance 100 250 120 Weight 86.7 kg Intake: IV 100 10 Invasive Line 1 10 Oral 0 240 120 Other: Voiding Method Toilet Toilet Toilet # Voids 1 1 # Bowel Movements 0 - Labs CBC & Chem 7: 10/14/24 07:39 10/14/24 07:39 Labs: Abnormal Lab Results - Last 24 Hours (Table) 10/13/24 10/13/24 10/13/24 Range/Units 16:32 16:32 20:03 WBC 12.98 H (4.50-10.00) 10*3/uL MCH 32.4 H (27.0-32.0) pg Chloride 108 H (98-107) mmol/L Carbon Dioxide 21 L (22-30) mmol/L Creatinine 0.62 L (0.66-1.25) mg/dL Glucose (74-99) mg/dL POC Glucose (mg/dL) 151 H (70-110) mg/dL 10/14/24 10/14/24 10/14/24 Range/Units 06:08 07:39 07:39 WBC 13.13 H (4.50-10.00) 10*3/uL MCH 32.8 H (27.0-32.0) pg Chloride (98-107) mmol/L Carbon Dioxide (22-30) mmol/L Creatinine (0.66-1.25) mg/dL Glucose 132 H (74-99) mg/dL POC Glucose (mg/dL) 136 H (70-110) mg/dL 10/14/24 Range/Units 11:56 WBC (4.50-10.00) 10*3/uL MCH (27.0-32.0) pg Chloride (98-107) mmol/L Carbon Dioxide (22-30) mmol/L Creatinine (0.66-1.25) mg/dL Glucose (74-99) mg/dL POC Glucose (mg/dL) 156 H (70-110) mg/dL
[2024-10-14] MEDS: HEPARIN SODIUM,PORCINE 5,000 UNIT/ML 1 ML VIAL SQ SCH (15:18)
[2024-10-14 17:06] LABS: Glucose,Whole Blood 137 mg/dL (70-110)
[2024-10-14 20:21] LABS: Glucose,Whole Blood 171 mg/dL (70-110)
[2024-10-14] MEDS: METOPROLOL TARTRATE 50 MG TAB PO SCH (20:40)
--- NOTE | 2024-10-14 21:56 | P.CNPUL ---
History of Present Illness Consult date: 10/14/24 Reason for consult: chest pain History of present illness: This is a 48-year-old male patient, history of chronic anxiety and chronic marijuana smoking along with previous history of tobacco consumption/chewing and the remote history of smoking and the patient quit smoking approximately 15 years ago. However, the patient smokes around 8-10 joints of marijuana daily basis. The patient presented to the hospital because of chest pain and the patient had elevated troponins. He ruled in for an acute non-ST segment elevation myocardial infarction. Cardiology was consulted and on October 12, 2024 the patient underwent a transthoracic 2D echocardiogram which demonstrated a left ventricular ejection fraction to be estimated at 55 to 60%, trace mitral valve regurgitation, trace to mild aortic valve regurgitation, trace tricuspid valve regurgitation, trace pulmonic valve regurgitation, and a normal size aortic root and proximal ascending aorta. The patient was recommended to undergo a cardiac catheterization which was completed today and revealed a 90% stenosis to his mid left anterior descending coronary artery, and 80 to 90% stenosis to his ostial diagonal 2, a 50 to 60% stenosis to his proximal left circumflex coronary artery and a 70% stenosis to his mid right coronary artery. Subsequently, due to the findings on the cardiac catheterization a consult was placed to cardiothoracic surgery for further evaluation and treatment. The patient is scheduled to undergo coronary artery bypass surgery in a.m. and her clinical care consultation was also requested for postoperative management and care. The patient is free of any chest pain for now. Denies having any cough or sputum production. CAT scan of the chest was done on 10/13/2024 and the CAT scan showed minimal thoracic aortic calcification. No pulmonary abnormalities. Bilateral nonobstructive renal calcification. Carotid Dopplers were also negative for any hemodynamically significant carotid artery stenosis. The blood work from today shows a white cell count of 13, hemoglobin 15.3 with a platelet count of 360. BUN is 12 with a creatinine of 0.8. Sodium is at 140. The patient is currently on room air oxygen. A bedside spirometry was done and the results are still pending for now. Review of Systems Constitutional: Reports as per HPI Eyes: denies as per HPI, denies blurred vision, denies bulging eye, denies decreased vision, denies diplopia, denies discharge, denies dry eye, denies irr itation, denies itching, denies pain, denies photophobia, denies loss of peripheral vision, denies loss of vision, denies tunnel vision/blind spots Ears: deny: decreased hearing, ear discharge, earache, tinnitus Ears, nose, mouth and throat: Reports as per HPI Breasts: absent: as per HPI, gynecomastia Cardiovascular: Reports chest pain Respiratory: Reports as per HPI Gastrointestinal: Reports as per HPI Genitourinary: Reports as per HPI Musculoskeletal: Reports as per HPI Musculoskeletal: absent: ankle pain, ankle stiffness, ankle swelling, as per HPI, elbow pain, elbow stiffness, elbow swelling, foot pain, foot stiffness, foot swelling, hand pain, hand stiffness, hand swelling, hip pain, hip stiffness, hip swelling, knee pain, knee stiffness, knee swelling, shoulder pain, shoulder stiffness, shoulder swelling, wrist pain, wrist stiffness, wrist swelling Integumentary: Reports as per HPI Neurological: Reports as per HPI Psychiatric: Reports anxiety Endocrine: Reports as per HPI Hematologic/Lymphatic: Reports as per HPI Allergic/Immunologic: Reports as per HPI Past Medical History Past Medical History: Coronary Artery Disease (CAD), Hypertension History of Any Multi-Drug Resistant Organisms: None Reported Past Surgical History: Hernia Repair (Right inguinal), Tonsillectomy Past Anesthesia/Blood Transfusion Reactions: No Reported Reaction Past Psychological History: Anxiety Smoking Status: Former smoker (Uses chewing tobacco daily) Past Alcohol Use History: None Reported Past Drug Use History: Marijuana Additional Drug Use History / Comment(s): smokes marijuana 8-10 joints per day - Past Family History Brother(s) Family Medical History: Coronary Artery Disease (CAD), CVA/TIA, Diabetes Mellitus Additional Family Medical History / Comment(s): TIA Father Family Medical History: Cancer Additional Family Medical History / Comment(s): throat cancer- Mother Family Medical History: Sleep Apnea/CPAP/BIPAP Additional Family Medical History / Comment(s): Chronic pain after a MVA Medications and Allergies Home Medications Medication Instructions Recorded Confirmed Type No Known Home Medications 10/11/24 10/11/24 History Allergies Allergy/AdvReac Type Severity Reaction Status Date / Time acetaminophen AdvReac Chest Pain Verified 10/11/24 12:43 [From Tylenol-Codeine] codeine AdvReac Chest Pain Verified 10/11/24 12:43 [From Tylenol-Codeine] Physical Exam Vitals: Vital Signs Temp Pulse Pulse Resp BP Pulse Ox 10/14/24 20:00 75 17 10/14/24 16:35 139/83 99 10/14/24 15:12 66 17 170/92 98 10/14/24 11:22 74 17 137/88 97 10/14/24 08:40 97.8 F 86 17 148/97 98 10/14/24 04:00 70 16 148/81 98 10/14/24 02:00 77 16 10/13/24 23:36 76 16 152/88 94 L Intake and Output 10/14/24 10/14/24 10/14/24 06:59 14:59 22:59 Intake Total 240 240 130 Balance 240 240 130 Intake: IV 10 Invasive Line 2 10 Oral 240 240 120 Other: Voiding Method Toilet Toilet Toilet # Voids 1 # Bowel Movements 0 Weight 86.7 kg The patient appeared well nourished and normally developed. Vital signs as documented. Head exam is unremarkable. No scleral icterus or corneal arcus noted. Neck is without jugular venous distension, thyromegaly, or carotid bruits. Carotid upstrokes are brisk bilaterally. Lungs are clear to auscultation and percussion. Cardiac exam reveals the PMI to be normally sized and situated. Rhythm is regular. First and second heart sounds normal. No murmurs, rubs or gallops. Abdominal exam reveals normal bowel sounds, no masses, no organomegaly and no ao rtic enlargement. Extremities are nonedematous and both femoral and pedal pulses are normal. Examination of the skin revealed no evidence of significant rashes, suspicious appearing nevi or other concerning lesions. Neurologically, the patient is awake and alert and the patient does not have any focal neurological deficit. Cranial nerves are essentially intact. Results - Laboratory Findings CBC and BMP: 10/14/24 07:39 10/14/24 07:39 PT/INR, D-dimer PT 10.9 sec (10.0-12.5) 10/12/24 01:10 INR 1.0 (<1.2) 10/12/24 01:10 D-Dimer 0.18 mg/L FEU (<0.60) 10/11/24 10:25 Abnormal lab findings: Abnormal Labs 10/11/24 10/11/24 10/11/24 10:25 10:25 10:25 WBC 11.52 H MCH 32.2 H Immature Gran # Monocytes # APTT Chloride Carbon Dioxide Creatinine Glucose 114 H POC Glucose (mg/dL) Troponin I 0.068 H* HDL Cholesterol Lipase 434 H Crossmatch 10/11/24 10/11/24 10/11/24 13:05 14:19 17:32 WBC MCH Immature Gran # Monocytes # APTT 38.1 H 30.2 H Chloride Carbon Dioxide Creatinine Glucose POC Glucose (mg/dL) Troponin I 0.060 H* HDL Cholesterol Lipase Crossmatch 10/11/24 10/12/24 10/12/24 17:32 01:10 01:10 WBC 13.38 H MCH 32.3 H Immature Gran # 0.05 H Monocytes # 1.12 H APTT 46.1 H Chloride Carbon Dioxide Creatinine Glucose POC Glucose (mg/dL) Troponin I 0.051 H* HDL Cholesterol Lipase Crossmatch 10/12/24 10/12/24 10/12/24 07:55 07:55 13:05 WBC MCH Immature Gran # Monocytes # APTT 36.8 H Chloride Carbon Dioxide Creatinine Glucose 112 H POC Glucose (mg/dL) Troponin I HDL Cholesterol 34.80 L Lipase Crossmatch 10/12/24 10/13/24 10/13/24 19:09 05:37 05:37 WBC 12.88 H MCH 32.4 H Immature Gran # 0.06 H Monocytes # 1.09 H APTT 32.7 H 41.5 H Chloride Carbon Dioxide Creatinine Glucose POC Glucose (mg/dL) Troponin I HDL Cholesterol Lipase Crossmatch 10/13/24 10/13/24 10/13/24 05:37 06:02 16:32 WBC 12.98 H MCH 32.4 H Immature Gran # Monocytes # APTT Chloride 110 H Carbon Dioxide Creatinine Glucose 112 H POC Glucose (mg/dL) 129 H Troponin I HDL Cholesterol Lipase Crossmatch 10/13/24 10/13/24 10/14/24 16:32 20:03 06:08 WBC MCH Immature Gran # Monocytes # APTT Chloride 108 H Carbon Dioxide 21 L Creatinine 0.62 L Glucose POC Glucose (mg/dL) 151 H 136 H Troponin I HDL Cholesterol Lipase Crossmatch 10/14/24 10/14/24 10/14/24 07:39 07:39 11:56 WBC 13.13 H MCH 32.8 H Immature Gran # Monocytes # APTT Chloride Carbon Dioxide Creatinine Glucose 132 H POC Glucose (mg/dL) 156 H Troponin I HDL Cholesterol Lipase Crossmatch 10/14/24 10/14/24 10/14/24 15:41 17:04 20:20 WBC MCH Immature Gran # Monocytes # APTT Chloride Carbon Dioxide Creatinine Glucose POC Glucose (mg/dL) 137 H 171 H Troponin I HDL Cholesterol Lipase Crossmatch See Detail - Diagnostic Findings CT scan - chest: image reviewed Assessment and Plan Plan: Coronary artery disease post acute non-ST segment elevation myocardial infarction. 2D echocardiogram which demonstrated a left ventricular ejection fraction to be estimated at 55 to 60%, trace mitral valve regurgitation, trace to mild aortic valve regurgitation, trace tricuspid valve regurgitation, trace pulmonic valve regurgitation, and a normal size aortic root and proximal ascending aorta. The cardiac catheterization which was completed and revealed a 90% stenosis to his mid left anterior descending coronary artery, and 80 to 90% stenosis to his ostial diagonal 2, a 50 to 60% stenosis to his proximal left circumflex coronary artery and a 70% stenosis to his mid right coronary artery. The patient is awaiting coronary bypass surgery. The patient is currently free of any chest pain. Hypertension Chronic marijuana smoking Former smoker the patient quit smoking 15 years ago Chronic anxiety Poor dentition Plan Patient is currently on room air oxygen No history of any chronic lung disease. Will do a bedside spirometry and established FEV1. CAT scan of the chest shows no acute abnormalities. Hemodynamically stable. Continue current care and proceed with coronary bypass surgery in a.m. Will manage the ventilator and attempt for any postoperative cardiopulmonary complication should they arise. Labs are within normal limits. Will continue to follow. Case was discussed with cardiothoracic surgery. Patient was educated about postoperative care. Time with Patient: Greater than 30
--- NOTE | 2024-10-15 00:06 | P.PN ---
Subjective Progress Note Date: 10/14/24 This is a pleasant 48-year-old male who presented to the emergency department with chest pain. Patient reports [place] was [place] [employer] and walking [id number] doing things throughout the day started having midsternal chest pain that was sharp and intense and intermittent at times although progressively became worse over the day and was persistent and was brought here by family for further evaluation. Patient reports he follows with Dr. Reyna in the [place] area as patient resides there and no significant past medical history other than previous history of hypertension although blood pressures have improved and patient was not taking any medications for them. Patient denies alcohol use or tobacco use but does admit to using marijuana on occasion. Labs reviewed on admission reveal a mildly elevated white count of 11.52, hemoglobin 15.3, platelets 308, D-dimer 0.18, sodium 139 with a potassium of 4.3, BUN 11, creatinine 0.81, magnesium 1.6, initial troponin 0.068, repeat is 0.060, third troponin is 0.051, BNP was 92 and lipase is 434. Patient did admit to some abdominal discomfort when experiencing this pain. Chest x-ray reveals possible underlying COPD otherwise no definitive acute process, EKG shows sinus rhythm and a heart rate of 76 bpm. Patient being admitted and started on IV heparin with cardiology on consultation.. 10/12/2024 Patient is seen in follow-up today currently n.p.o. maintained on heparin and patient is scheduled to undergo cardiac catheterization with cardiology sometime today although unsure of what time. Patient is extremely anxious on exam with significant other at the bedside with questions and concerns that were answered to the best of her ability. Patient continues to report some intermittent chest discomfort although feels he is mostly having withdrawal effects from marijuana as he uses this daily and frequently throughout the day. Patient does have as needed anxiety medications and will continue as needed. Follow-up on repeat labs and continue telemetry monitoring. 10/13/2024 Patient is seen in follow-up today remains n.p.o. maintained on heparin scheduled to undergo cardiac catheterization today. Patient continues to be extremely anxious and reports she is severely nauseated although he feels this is due to n.p.o. status. Recommend mouth swabs and complete n.p.o. for now until cleared by cardiology. This was discussed with family as well as patient at bedside and they are agreeable. Will await official cardiac cath irrigation report as patient also reports he would like to go home. Patient is afebrile with no reports of further chest pain or shortness of breath. 10/14/2024 Patient is seen in follow-up today is tentatively scheduled for cardiovascular thoracic intervention secondary to triple-vessel disease. Patient reports to feeling much improved and his anxiety is improving and reports he is ready for surgery. White count mildly elevated at 13.13, likely reactive, hemoglobin is 15.3, sodium 140 with a potassium of 4.1, BUN is 12 and creatinine is 0.87. Troponin 0.016 and magnesium is 2.0. Patient will be n.p.o. at midnight and will await official cardiology report. Questions and concerns were answered with family at the bedside Review of systems: Constitutional: No reports of fatigue, fever, or chills, reports improvement in anxiety Cardiovascular: No reports of chest pain or palpitations Respiratory: No reports of shortness of breath or cough GI: reports of intermittent nausea, no vomiting, or diarrhea : No reports of dysuria or retention Neurovascular: No reports of weakness or numbness All medications have been reviewed PHYSICAL EXAMINATION: GENERAL: The patient is alert and oriented x3. Well developed, well nourished. Obese HEENT: Pupils are round and equally reacting to light. EOMI. No scleral icterus. No conjunctival pallor. Normocephalic, atraumatic. No pharyngeal erythema. No thyromegaly. CARDIOVASCULAR: S1 and S2 present. No murmurs, rubs, or gallops. PULMONARY: Chest is clear to auscultation, no wheezing or crackles. ABDOMEN: Soft, nontender, nondistended, normoactive bowel sounds. No palpable organomegaly. MUSCULOSKELETAL: No joint swelling or deformity. EXTREMITIES: No cyanosis, clubbing, or pedal edema. NEUROLOGICAL: Gross neurological examination did not reveal any focal deficits. SKIN: No rashes. Assessment: Chest pain,acute NSTEMI, troponins minimally elevated, status post cardiac catheterization revealing 90% stenosis of the mid LAD 80 to 90% ostial diagonal with significant multi-vessel disease Extensive daily THC use History of hypertension although not taking any medications per patient Obesity with a BMI of 32.5 GI prophylaxis DVT prophylaxis Full code Plan: Patient was admitted for cardiology evaluation and continued on IV heparin as patient had elevated troponins as mentioned previously. Patient underwent cardiac catheterization 10/13/2024 which revealed 90% mid LAD and significant multi-vessel disease recommending cardiothoracic consultation and CABG consultation. Patient undergoing testing and tentatively plan for CABG on 10/15/2024. Patient will be n.p.o. at midnight Follow-up on repeat labs in monitor kidney functions and electrolytes closely Encourage increase activity as tolerated Continue anxiety medications as needed The impression and plan of care has been dictated by Rachelle Johnson, Nurse Practitioner as directed. Dr. Eulalio MD I have performed a history and examination and MDM of this patient, discussed the same with the dictator, and agree with the dictator's assessment and plan as written ,documented as a scribe. Based on total visit time, I have performed more than 50% of the visit. Objective - Vital Signs Vital signs: Vital Signs Temp 97.8 F 10/14/24 08:40 Pulse 75 10/14/24 20:00 Resp 17 10/14/24 20:00 BP 139/83 10/14/24 16:35 Pulse Ox 99 10/14/24 16:35 FiO2 Intake & Output 10/14/24 10/14/24 10/15/24 06:59 18:59 06:59 Intake Total 250 360 250 Balance 250 360 250 Weight 86.7 kg Intake: IV 10 10 Invasive Line 1 10 Invasive Line 2 10 Oral 240 360 240 Other: Voiding Method Toilet Toilet Toilet # Voids 1 # Bowel Movements 0 - Labs CBC & Chem 7: 10/14/24 07:39 10/14/24 07:39 Labs: Abnormal Lab Results - Last 24 Hours (Table) 10/14/24 10/14/24 10/14/24 Range/Units 06:08 07:39 07:39 WBC 13.13 H (4.50-10.00) 10*3/uL MCH 32.8 H (27.0-32.0) pg Glucose 132 H (74-99) mg/dL POC Glucose (mg/dL) 136 H (70-110) mg/dL Crossmatch 10/14/24 10/14/24 10/14/24 Range/Units 11:56 15:41 17:04 WBC (4.50-10.00) 10*3/uL MCH (27.0-32.0) pg Glucose (74-99) mg/dL POC Glucose (mg/dL) 156 H 137 H (70-110) mg/dL Crossmatch See Detail 10/14/24 Range/Units 20:20 WBC (4.50-10.00) 10*3/uL MCH (27.0-32.0) pg Glucose (74-99) mg/dL POC Glucose (mg/dL) 171 H (70-110) mg/dL Crossmatch
[2024-10-15] MEDS: METOPROLOL TARTRATE 12.5 MG TAB PO ONE (04:13)
[2024-10-15] MEDS: ATORVASTATIN 10 MG TAB PO ONE (04:13)
[2024-10-15] MEDS: ASPIRIN 325 MG TAB PO ONE (04:13)
[2024-10-15] MEDS ORDERED: NOREPINEPHRINE 8 MG in SODIUM CHLORIDE 0.9% 250 ML IV SCH (05:00)
[2024-10-15] MEDS ORDERED: INSULIN REGULAR 100 UNIT in SODIUM CHLORIDE 0.9% 100 ML IV SCH (05:00)
[2024-10-15] MEDS: ONDANSETRON 4 MG/2 ML VIAL IVP PRN (05:03)
[2024-10-15] MEDS: ALPRAZolam 0.25 MG TAB PO PRN (05:10)
[2024-10-15] MEDS: IV FLUID CONTINUATION 1,000 ML IV ONE (06:02)
[2024-10-15] MEDS: LACTATED RINGERS 1,000 ML IV SCH (06:20)
[2024-10-15 06:28] LABS: Glucose,Whole Blood 131 mg/dL (70-110)
[2024-10-15] MEDS ORDERED: fentaNYL (PF) 50 MCG/ML 50 ML VIAL ONE (07:45)
[2024-10-15] MEDS ORDERED: TRANEXAMIC 1,000 MG/100ML-NACL PREMIX BAG ONE (07:45)
[2024-10-15] MEDS ORDERED: LIDOCAINE 2% SYG (PF) 100 MG/5 ML ONE (07:45)
[2024-10-15] MEDS ORDERED: ALBUMIN HUMAN 5% (25gm) 500 ML VIAL IVPB ONE (07:45)
[2024-10-15] MEDS ORDERED: ePHEDrine 50 MG/ML 1 ML VIAL ONE (07:45)
[2024-10-15] MEDS ORDERED: INSULIN REGULAR 100 UNIT/ML VIAL (IV) ONE (07:45)
[2024-10-15] MEDS ORDERED: WATER FOR INJECTION, STERILE 10 ML VIAL IV ONE (07:45)
[2024-10-15] MEDS ORDERED: GLYCOPYRROLATE 0.2 MG/ML 2 ML VIAL ONE (07:45)
[2024-10-15] MEDS ORDERED: MIDAZOLAM HCL 10 MG/10 ML VIAL ONE (07:45)
[2024-10-15] MEDS ORDERED: PROTAMINE SULFATE 10 MG/ML 25 ML VIAL IV ONE (07:45)
[2024-10-15] MEDS ORDERED: VECURONIUM 10 MG VIAL IV ONE (07:45)
[2024-10-15] MEDS ORDERED: PROPOFOL 10 MG/ML 20 ML VIAL IV ONE (07:45)
[2024-10-15 08:51] LABS: ABG HCO3 24 mmol/L (21-25); ABG Hematocrit 37 % (34.0-46.0); ABG PCO2 43 mmHg (35-45); ABG PH 7.36 (7.35-7.45); ABG TCO2 22 mmol/L (19-24); Allen Test Performed? Yes
[2024-10-15 08:53] LABS: Allen Test Performed? Yes
[2024-10-15 08:55] LABS: ABG Glucose Whole Blood 114 mg/dL (75-99); ABG HCO3 24 mmol/L (21-25); ABG Hematocrit 37 % (34.0-46.0); ABG Ionized Calcium 4.6 mg/dL (4.5-5.3); ABG Lactic Acid Whole Blood 1.6 mmol/L (0.5-1.6); ABG PCO2 41 mmHg (35-45); ABG PH 7.37 (7.35-7.45); ABG PO2 408 mmHg (83-108); ABG Potassium Whole Blood 4.0 mmol/L (3.4-4.5); ABG Sodium Whole Blood 139 mmol/L (135-146); ABG TCO2 22 mmol/L (19-24)
[2024-10-15] MEDS: PAPAVERINE 360 MG in SODIUM CHLORIDE 0.9% 90 ML IV ONE (10:21)
[2024-10-15] MEDS: SODIUM CHLORIDE 0.9% 500 ML 500 ML with HEPARIN SODIUM,PORCINE (1 ML) 5,000 UNIT IV ONE (10:21)
[2024-10-15] MEDS: ceFAZolin 1,000 MG in SODIUM CHLORIDE 0.9% 1,000 ML IRRIGATION ONE (10:22)
[2024-10-15] MEDS: DILTIAZEM 125 MG in DEXTROSE 5% IN WATER 100 ML IV SCH (10:22)
[2024-10-15 11:21] LABS: Allen Test Performed? Yes
[2024-10-15 11:23] LABS: ABG Glucose Whole Blood 154 mg/dL (75-99); ABG HCO3 23 mmol/L (21-25); ABG Hematocrit 26 % (34.0-46.0); ABG Ionized Calcium 4.1 mg/dL (4.5-5.3); ABG PCO2 37 mmHg (35-45); ABG PH 7.42 (7.35-7.45); ABG Potassium Whole Blood 4.4 mmol/L (3.4-4.5); ABG Sodium Whole Blood 138 mmol/L (135-146)
[2024-10-15 12:43] LABS: ABG Glucose Whole Blood 144 mg/dL (75-99); ABG HCO3 25 mmol/L (21-25); ABG Hematocrit 26 % (34.0-46.0); ABG Ionized Calcium 4.3 mg/dL (4.5-5.3); ABG PCO2 50 mmHg (35-45); ABG PH 7.31 (7.35-7.45); ABG PO2 401 mmHg (83-108); ABG Potassium Whole Blood 3.8 mmol/L (3.4-4.5); ABG Sodium Whole Blood 140 mmol/L (135-146); ABG TCO2 24 mmol/L (19-24); Allen Test Performed? Yes
[2024-10-15 13:08] LABS: ABG Glucose Whole Blood 124 mg/dL (75-99); ABG HCO3 25 mmol/L (21-25); ABG Hematocrit 29 % (34.0-46.0); ABG Ionized Calcium 4.4 mg/dL (4.5-5.3); ABG Lactic Acid Whole Blood 1.9 mmol/L (0.5-1.6); ABG PCO2 45 mmHg (35-45); ABG PH 7.36 (7.35-7.45); ABG PO2 380 mmHg (83-108); ABG Potassium Whole Blood 3.9 mmol/L (3.4-4.5); ABG Sodium Whole Blood 139 mmol/L (135-146); Allen Test Performed? Yes
[2024-10-15 13:27] LABS: ABG Lactic Acid Whole Blood 3.1 mmol/L (0.5-1.6); ABG PO2 >420 mmHg (83-108)
[2024-10-15 13:31] LABS: ABG Lactic Acid Whole Blood 2.3 mmol/L (0.5-1.6)
[2024-10-15] MEDS ORDERED: DEXTROSE 50% SYRINGE 50 ML IVP PRN ×2 (13:48)
[2024-10-15] MEDS ORDERED: ONDANSETRON 4 MG/2 ML VIAL IVP PRN (13:48)
[2024-10-15] MEDS ORDERED: Potassium Replacement Protocol 1 EACH MISC MISCELLANE PRN (13:48)
[2024-10-15] MEDS ORDERED: Magnesium Replacement Protocol 1 EACH MISC MISCELLANE PRN (13:48)
[2024-10-15] MEDS ORDERED: IPRATROPIUM-ALBUTEROL 3 ML NEB INHALATION PRN (13:48)
[2024-10-15] MEDS ORDERED: hydrALAZINE HCL 20 MG/ML 1 ML VIAL IVP PRN (13:48)
[2024-10-15] MEDS ORDERED: DEXTROSE 5% IN WATER 100 ML with AMIODARONE 150 MG IV PRN (13:48)
[2024-10-15] MEDS ORDERED: BENZOCAINE/MENTHOL LOZENG 1 EACH LOZENGE MUCOUS MEM PRN (13:48)
[2024-10-15] MEDS ORDERED: METOCLOPRAMIDE 5 MG/ML 2 ML VIAL IVP PRN (13:48)
[2024-10-15 13:54] LABS: Glucose,Whole Blood 110 mg/dL (70-110)
--- NOTE | 2024-10-15 13:58 | P.ANPRN ---
Procedure Note - Anesthesia - Invasive Line Right Central Line Time Out Performed: Yes ([id number]) Date of Procedure: 10/15/24 Time of Procedure: 07:23 Location of Patient: Phase I Preparation: Sterile Prep, Sterile Dressing Central Line Location: Internal Jugular (Right IJ cordis) Ultrasound Used: Yes Purpose - Visualization and Identification of Vasculature: Yes Needle Guage: 18-gauge angio Image Stored and Saved: Yes Narrative: Invasive line placement per sterile protocol utilized. Anesthesia note Procedure: Right internal jugular central venous catheter insertion: 8.5-[place] Cordis Sterile protocol followed. Right neck prepped. Ultrasound used. Lidocaine 1% used. Using ultrasound local anesthetic was instilled site over right Internal Jugular vein. Angiocath was used to gain access via ultrasound. Once free flow non-pulsatile blood flow was confirmed, 12 inch extension tubing was then placed on Angiocath. Once central venous pressure was confirmed, J-wire was then placed through Angiocath. Angiocath was then withdrawn. Local was instilled at J-wire site. Small skin liss was then made with provided sterile scalpel. 8.5- [place] Cordis was then inserted over the wire while maintaining control of wire at all times. Uneventful insertion with dilation. Free flow nonpulsatile blood flow through Cordis. Hooked up to IV tubing. Secured with suture. Dressings applied. Drapes Removed. Attempts x1.
--- NOTE | 2024-10-15 13:59 | P.ANPRN ---
Procedure Note - Anesthesia - Invasive Line Right Cadott Teresa Time Out Performed: Yes ([id number]) Date of Procedure: 10/15/24 Time of Procedure: 07:34 Location of Patient: Phase I Preparation: Sterile Prep, Sterile Dressing Cadott Teresa Line Location: Internal Jugular (right) Ultrasound Used: No Purpose - Visualization and Identification of Vasculature: No Image Stored and Saved: No Narrative: Invasive line placement per sterile protocol utilized. Anesthesia note Procedure right Cadott-Teresa catheter placed through right internal jugular central venous catheter Sterile protocol maintained from previous procedure. Cadott-Teresa catheter sterilely placed in sheath and flushed prior to insertion. After advancing 15 cm Cadott-Teresa catheter was then slowly inserted with balloon up. Advanced through CVP, RV to PA waveform. Cadott-Teresa catheter wedged around 46 cm. Balloon down. Catheter withdrawn 5 cm. . No wedge. Proximal and distal sites locked on sheath. Attempts x1. Sterile drapes removed and dressings applied.
--- NOTE | 2024-10-15 14:01 | P.ANPRN ---
Procedure Note - Anesthesia - DARIO Intraop Pre Bypass DARIO Intraop - Anesthesia Indication: Coronary artery disease Date of Procedure: 10/15/24 Pre-operative Diagnosis: Coronary artery disease Post-operative Diagnosis: Same Surgeon: Edita Arvizu Ejection Fraction: Normal Regional Wall Motion Abnormalities: None Left Ventricle Hypertrophy: No R. Ventricle Function: Normal Anatomy: Trileaflet Aortic Stenosis: None Aortic Regurgitation: None Mitral Stenosis: None Mitral Regurgitation: Trace Tricuspid Stenosis: None Tricuspid Regurgitation: Trace Pulmonic Stenosis: None Pulmonic Regurgitation: None R. Atrial Dilation: No R. Atrial PFO: No L. Atrial Dilation: No (Atrial appendage clear) Aortic Dissection: No Aortic Calcification: None Plural Effusion: None
--- NOTE | 2024-10-15 14:03 | P.ANPRN ---
Procedure Note - Anesthesia - DARIO Intraop Post Bypass DARIO Intraop Post Bypass Procedure Performed: CABG x 4 Left Ventricle: Unchanged Ejection Fraction: Normal Regional Wall Motion Abnormalities: None R. Ventricle Function: Normal Aortic Valve: Unchanged Mitral Valve: Unchanged Tricuspid: Unchanged Pulmonic: Unchanged Aortic Dissection: No
[2024-10-15 14:06] LABS: Basophils # (A) 0.06 10*3/uL (0.00-0.10); Basophils % (A) 0.3 %; Eosinophils # (A) 0.05 10*3/uL (0.04-0.35); Eosinophils % (A) 0.2 %; HCT 28.4 % (39.6-50.0); Lymphocytes # (A) 2.65 10*3/uL (0.90-5.00); Lymphocytes % (A) 13.2 %; MCH 33.2 pg (27.0-32.0); MCHC 36.3 g/dL (32.0-37.0); MCV 91.6 fL (80.0-97.0); Monocytes # (A) 1.33 10*3/uL (0.20-1.00); Monocytes % (A) 6.6 %; Neutrophils # (A) 15.76 10*3/uL (1.80-7.70); Neutrophils % (A) 78.8 %; Platelet Count 164 10*3/uL (140-440); RBC 3.10 10*6/uL (4.40-5.60); RDW 12.0 % (11.5-14.5); WBC 20.04 10*3/uL (4.50-10.00)
[2024-10-15 14:14] LABS: ABG HCO3 26 mmol/L (21-25); ABG PCO2 54 mmHg (35-45); ABG PH 7.29 (7.35-7.45); ABG PO2 394 mmHg (83-108); ABG TCO2 28 mmol/L (19-24)
[2024-10-15 14:16] LABS: HGB 10.3 g/dL (13.0-17.0)
[2024-10-15 14:18] LABS: Allen Test Performed? no
[2024-10-15 14:18] LABS: INR 1.2 (<1.2); Partial Thromboplastin Time 26.8 sec (22.0-30.0); Prothrombin Time 12.8 sec (10.0-12.5)
[2024-10-15] MEDS: AMIODARONE 360 MG in DEXTROSE 5% IN WATER 200 ML IV ONE (14:29)
[2024-10-15] MEDS: SODIUM CHLORIDE 0.9% 1,000 ML IV SCH (14:30)
[2024-10-15] MEDS: NITROGLYCERIN-D5W PMX 50 MG in DEXTROSE/WATER 1 250ML.BAG IV SCH (14:30)
[2024-10-15 14:31] LABS: ALT 26 U/L (4-49); AST 36 U/L (17-59); African American GFR (CKD) >90 (>60 ml/min/1.73 sqM); Albumin 2.5 g/dL (3.5-5.0); Alkaline Phosphatase 41 U/L (38-126); Anion Gap 6 mmol/L; Blood Urea Nitrogen 10 mg/dL (9-20); Calcium 7.7 mg/dL (8.4-10.2); Carbon Dioxide 25 mmol/L (22-30); Chloride 106 mmol/L (98-107); Glucose 102 mg/dL (74-99); Magnesium 2.4 mg/dL (1.6-2.3); Non-African American GFR(CKD) >90 (>60 ml/min/1.73 sqM); Potassium 4.1 mmol/L (3.5-5.1); Sodium 137 mmol/L (137-145); Total Protein 4.2 g/dL (6.3-8.2)
[2024-10-15] MEDS: CLEVIDIPINE BUTYRATE 25 MG in EMPTY BAG 1 BAG IV PRN (14:32)
--- NOTE | 2024-10-15 14:35 | XR ---
EXAMINATION TYPE: XR chest 1V portable DATE OF EXAM: 10/15/2024 2:21 PM COMPARISON: Chest radiographs from 10/11/2024. CLINICAL INDICATION: Male, 48 years old with history of Post Operative Cardiac Surgery; [facility] TECHNIQUE: XR chest 1V portable Frontal view of the chest. FINDINGS: Lungs/Pleura: There is no evidence of pleural effusion, focal consolidation, or pneumothorax. Pulmonary vascularity: Unremarkable. Heart/mediastinum: Cardiomediastinal silhouette is unremarkable. Musculoskeletal: No acute osseous pathology. Other findings: None Lines/Tubes: Endotracheal tube with distal tip 2.0 cm above the amanda. Nasogastric tube with its distal tip and side-port projecting under the diaphragm. Left thoracotomy tube is present without evidence of pneumothorax. There is a Odem-Teresa catheter with tip projecting over the spine. IMPRESSION: Postsurgical changes lines and tubes as above. [facility], , 10/15/2024 2:33 PM
[2024-10-15 14:56] LABS: Glucose,Whole Blood 118 mg/dL (70-110)
[2024-10-15] MEDS: HEPARIN SODIUM,PORCINE 5,000 UNIT/ML 1 ML VIAL SQ SCH (15:18)
[2024-10-15] MEDS: DEXMEDETOMIDINE/0.9% NACL(PMX) 400 MCG in EMPTY BAG 1 BAG IV SCH (15:36)
[2024-10-15] MEDS: fentaNYL (PF) 50 MCG/ML 2 ML AMP IVP PRN (15:41)
--- NOTE | 2024-10-15 15:53 | P.OP ---
Date of Procedure: 10/15/24 Preoperative Diagnosis: CAD Postoperative Diagnosis: CAD Procedure(s) Performed: 1. CABG x 4 with MENDEZ to LAD, RADIAL to OM, SVG to PDA, SVG to DIAGONAL 2. LA Appendage occlusion 35 Atriclip 3. Medistim graft flow measurement 4. Endoscopic harvest left greater saphenous vein 5. Endoscopic harvest left radial artery Implants: none Anesthesia: GETA Surgeon: Edita Arvizu Increment Manager #1: Jimbo Sullivan Indications for Procedure: 48 yo male admitted with CP and NSTEMI, underwent cath on 10/13/[address] Ashby this revealed severe 3v CAD including 90% mid LAD stenosis, 75% mid LCX, and 75% mid RCA stenosis. Patient was referred for CABG surgery. Echo revealed normal LV function. CT scan ruled out ascending aortic aneurysm. The STS risk score was calculated and discussed with the patient and the family.They understood and agreed to proceed. Operative Findings: severe 3v cad intraoperative DARIO revealed normal LV function, mild valvular disease Description of Procedure: The patient was brought to the operating room and laid supine on the operative table. Patient underwent right internal jugular [place]-Teresa catheter and right radial artery line placement. He was induced under general anesthesia without difficulties. A Chakraborty catheter was placed. The chest and abdomen as well as both lower extremities were prepped prepped and draped with ChloraPrep. Ioban was used to cover the skin. Patient received 2 g of cefazolin intravenously. Transesophageal echo confirmed preoperative findings of normal ventricular function with preserved valvular function. Midline sternotomy was performed. The left hemisternum was elevated and left internal mammary artery was dissected free. Simultaneously the left greater saphenous vein was harvested using endoscopic vein harvest technique. The vein was adequate caliber. Simultaneously the left radial artery was endoscopically harvested from the left forearm. The conduit was of adequate caliber. The patient was fully heparinized and the left internal mammary artery was transected distally. This had good pulsatile flow. It was around 2 mm in diameter. Papaverine solution was instilled. The Douglas sternal retractor was inserted. This was gently spread. Pericardium was incised and suspended. After confirmation of adequate ACT the patient was cannulated with a 7 mm aortic soft flow cannula. Medium 3 stage venous cannula was inserted. Both antegrade and retrograde cardioplegia cannulas as well as pulmonary artery vent was inserted and secured. Patient was placed on cardiopulmonary bypass and cooled to about 34 C. The aorta was clamped and the heart was arrested. Myocardial protection was achieved with initial dose of 1.5 L of blood cardioplegia. Initially 500 cc of warm blood cardioplegia followed by 500 cc of cold blood cardioplegia followed by 500 cc of retrograde cardioplegia. Additional doses of retrograde cardioplegia were administered every 15 minutes throughout the procedure. There was good myocardial myocardial protection. Cold saline and slush were poured on the heart. We excluded the left atrial appendage with a 35 mm AtriClip at its base. The left posterior pericardiotomy was performed with Bovie cautery. We began with the first distal anastomosis of the PDA vessel. This was a 2 mm moderately diseased vessel. Arteriotomy was created in its midsection. Segment of vein graft was prepared and attached into side fashion using running 7-0 Prolene suture. There was good hemostasis. Additional cardioplegia was administered through this vein graft as well as for the retrograde cannula. Next we turned our attention to the lateral wall the left ventricle. The obtuse marginal vessel was identified. This was about a 1.5 mm vessel. The radial artery graft was prepared and after arteriotomy was performed end-to-side anastomosis was performed with 7-0 Prolene suture. There was good hemostasis. Additional cardioplegia was administered through both graft as well as with a retrograde cannula. Next we turned our attention to the diagonal vessel. This was a second diagonal artery. This was about 2 mm in caliber and adequate for bypass. Arteriotomy is created its midsection. Segment of vein graft was attached in end to side fashion using running 7 prolene suture and additional cardioplegia was administered through the vein graft as well as through all 3 grafts as well as through the retrograde cannula. The mammary artery was then prepared. The LAD vessel was exposed. This vessel was diffusely diseased and about 2 mm in caliber. Arteriotomy was created in the mid section. The mammary pedicle was attached into side fashion using running 8-0 Prolene suture. There is good hemostasis. The pedicle was attached to the epicardium using 8-0 Prolene sutures. Next we turned our attention to the ascending aorta. Circular defect was created using 4.0 and 4.5 mm hole punch. Both vein grafts as well as the radial artery graft are attached end to side fashion using running 5-0 and 6-0 Prolene sutures respectively. Final dose of hotshot cardioplegia was administered. Patient was placed in steep Trendelenburg position. Aortic cross-clamp was then released. The patient was rewarmed resuscitated. Cardioversion was performed. Sinus rhythm was observed. Both atrial and ventricular pacing wires were attached to the heart and secured to the skin. 2 straight mediastinal chest tubes were inserted and left pleural chest tube was inserted. The patient was weaned from cardiopulmonary bypass without difficulties. Protamine was administered. The patient was decannulated. Thorough irrigation was performed. Medistim device was used to evaluate graft flows which appeared to be acceptable. After satisfactory hemostasis the sternum was closed with Jamieson cables. A total of 5 cables were used. The fascia, subcutaneous tissue and skin were closed in layers. Sterile dressings were applied. All sponge and needle counts were correct and no ther were no known complications. The cardiopulmonary bypass time was 113 minutes the aortic cross-clamp time was 96 minutes the estimated blood loss was 350 cc. The patient did not receive any blood products during the procedure. The patient demonstrated excellent hemodynamics with a cardiac index of 3.3. And no pressors were required. The DARIO demonstrated normal LV function without wall motion abnormalities.
[2024-10-15 16:04] LABS: Glucose,Whole Blood 167 mg/dL (70-110)
[2024-10-15] MEDS: INSULIN REGULAR 100 UNIT in SODIUM CHLORIDE 0.9% 100 ML IV SCH (16:05)
--- NOTE | 2024-10-15 16:17 | P.PN ---
Subjective Progress Note Date: 10/15/24 On 10/15/2024, the patient is being seen immediately following his cardiac surgery. The patient had surgery by Dr. Arvizu and the patient underwent four- vessel bypass surgery including MENDEZ to LAD, radial to OM, SVG to PDA and diagonal. The patient was seen immediately in the ICU following his arrival and the patient was calm and comfortable on propofol. The patient was on assist- control mode of mechanical ventilation at rate of 12, tidal volume of 500, FiO2 of 100% with a PEEP of 5. The pH was 7.28 with a PCO2 of 54 and PO2 of 394. The patient had 2 mediastinal chest tubes and a single left pleural chest tube. Chest x-ray shows no acute abnormalities. Tubes and lines are all in place and the patient has minimal output through the chest tube and there is no evidence of any air leak or pneumothorax. Hemodynamically, the patient has a [place]-Teresa catheter in place. Cardiac output is at 5.1 with an index of 2.5. Cardiac rhythm is sinus. The patient is currently on amiodarone at 1 mg/min and nitroglycerin drip at 5 mcg/min. Urine output is adequate. There was a close at 20 with a hemoglobin 10.3 and the platelet count of 164. The sodium is at 137, potassium is at 4.1, BUN is 10 with a creatinine of 0.6. LFTs are normal at this point. Cardiac rhythm is sinus. No other significant events since his arrival to the intensive care unit. Objective - Vital Signs Vital signs: Vital Signs Temp 97.3 F L 10/15/24 16:00 Pulse 80 10/15/24 16:00 Resp 20 10/15/24 16:00 BP 127/77 10/15/24 06:03 Pulse Ox 98 10/15/24 16:00 FiO2 50 10/15/24 16:00 Intake & Output 10/14/24 10/15/24 10/15/24 18:59 06:59 18:59 Intake Total 360 460 137.016 Output Total 840 Balance 360 460 -702.984 Intake: IV 120 113 CO/CI 50 Invasive Line 2 20 Pressure 9 Sodium Chloride 0.9% 1, 50 000 ml @ 50 mls/hr IV . Q20H [facility] Rx#:[id number] Intake, IV Titration 24.016 Amount Clevidipine Butyrate 25 18.200 mg In Empty Bag 1 bag @ 1 MG/HR 2 mls/hr IV .Q24H PRN Rx#:[id number] Dexmedetomidine/0.9% NaCl 5.816 (Pmx) 400 mcg In Empty Bag 1 bag @ Titrate IV . Q0M [facility] Rx#:[id number] Oral 360 340 Output: Chest Tube Drainage 90 Left Pleural 0 Mediastinal x2 90 Urine 400 Estimated Blood Loss 350 Other: Voiding Method Toilet Toilet Indwelling Catheter # Voids 1 2 # Bowel Movements 0 ABP, PAP, CO, CI - Last Documented Arterial Blood Pressure 127/63 Pulmonary Artery Pressure 24/13 Cardiac Output 6.6 Cardiac Index 3.3 - Exam The patient appeared well nourished and normally developed. The patient is sedated on propofol. Calm and comfortable. Synchronous with mechanical ventilator. Orogastric and orotracheal tube are both in place. Head exam is unremarkable. No scleral icterus or corneal arcus noted. Neck is without jugular venous distension, thyromegaly, or carotid bruits. Carotid upstrokes are brisk bilaterally. Right IJ [place]-Teresa catheter in place. Lungs are clear to auscultation and percussion. The patient has 2 mediastinal chest tubes and single left pleural chest tube. Output is minimal and the patient has no evidence of any air leak. Cardiac exam reveals the PMI to be normally sized and situated. Rhythm is regular. First and second heart sounds normal. No murmurs, rubs or gallops. Abdominal exam reveals normal bowel sounds, no masses, no organomegaly and no aortic enlargement. Extremities are nonedematous and both femoral and pedal pulses are normal. Examination of the skin revealed no evidence of significant rashes, suspicious appearing nevi or other concerning lesions. Neurologically, the patient is sedated and the patient is calm and comfortable. - Labs CBC & Chem 7: 10/15/24 13:50 10/15/24 13:50 Labs: Abnormal Lab Results - Last 24 Hours (Table) 10/14/24 10/14/24 10/14/24 Range/Units 15:41 17:04 20:20 WBC (4.50-10.00) 10*3/uL RBC (4.40-5.60) 10*6/uL Hgb (13.0-17.0) g/dL Hct (39.6-50.0) % MCH (27.0-32.0) pg Immature Gran # (0.00-0.04) 10*3/uL Neutrophils # (1.80-7.70) 10*3/uL Monocytes # (0.20-1.00) 10*3/uL PT (10.0-12.5) sec INR (<1.2) ABG pH (7.35-7.45) ABG pCO2 (35-45) mmHg ABG pO2 (83-108) mmHg ABG HCO3 (21-25) mmol/L ABG Total CO2 (19-24) mmol/L ABG O2 Saturation (94-97) % ABG Hematocrit (34.0-46.0) % ABG Ionized Calcium (4.5-5.3) mg/dL ABG Glucose (75-99) mg/dL ABG Lactic Acid (0.5-1.6) mmol/L Hemoglobin (13.0-17.5) gm/dL Glucose (74-99) mg/dL POC Glucose (mg/dL) 137 H 171 H (70-110) mg/dL Calcium (8.4-10.2) mg/dL Magnesium (1.6-2.3) mg/dL Total Protein (6.3-8.2) g/dL Albumin (3.5-5.0) g/dL Arterial Blood Glucose (75-99) mg/dL Crossmatch See Detail 10/15/24 10/15/24 10/15/24 Range/Units 06:14 08:40 09:30 WBC (4.50-10.00) 10*3/uL RBC (4.40-5.60) 10*6/uL Hgb (13.0-17.0) g/dL Hct (39.6-50.0) % MCH (27.0-32.0) pg Immature Gran # (0.00-0.04) 10*3/uL Neutrophils # (1.80-7.70) 10*3/uL Monocytes # (0.20-1.00) 10*3/uL PT (10.0-12.5) sec INR (<1.2) ABG pH (7.35-7.45) ABG pCO2 (35-45) mmHg ABG pO2 408 H (83-108) mmHg ABG HCO3 (21-25) mmol/L ABG Total CO2 (19-24) mmol/L ABG O2 Saturation 99.2 H 99.2 H (94-97) % ABG Hematocrit (34.0-46.0) % ABG Ionized Calcium (4.5-5.3) mg/dL ABG Glucose 114 H (75-99) mg/dL ABG Lactic Acid (0.5-1.6) mmol/L Hemoglobin 12.0 L 11.9 L (13.0-17.5) gm/dL Glucose (74-99) mg/dL POC Glucose (mg/dL) 131 H (70-110) mg/dL Calcium (8.4-10.2) mg/dL Magnesium (1.6-2.3) mg/dL Total Protein (6.3-8.2) g/dL Albumin (3.5-5.0) g/dL Arterial Blood Glucose 114 H (75-99) mg/dL Crossmatch 10/15/24 10/15/24 10/15/24 Range/Units 11:25 12:45 13:10 WBC (4.50-10.00) 10*3/uL RBC (4.40-5.60) 10*6/uL Hgb (13.0-17.0) g/dL Hct (39.6-50.0) % MCH (27.0-32.0) pg Immature Gran # (0.00-0.04) 10*3/uL Neutrophils # (1.80-7.70) 10*3/uL Monocytes # (0.20-1.00) 10*3/uL PT (10.0-12.5) sec INR (<1.2) ABG pH 7.31 L (7.35-7.45) ABG pCO2 50 H (35-45) mmHg ABG pO2 >420 H 401 H 380 H (83-108) mmHg ABG HCO3 (21-25) mmol/L ABG Total CO2 (19-24) mmol/L ABG O2 Saturation >99.4 H 99.3 H >99.4 H (94-97) % ABG Hematocrit 26 L 26 L 29 L (34.0-46.0) % ABG Ionized Calcium 4.1 L 4.3 L 4.4 L (4.5-5.3) mg/dL ABG Glucose 154 H 144 H 124 H (75-99) mg/dL ABG Lactic Acid 3.1 H* 2.3 H* 1.9 H (0.5-1.6) mmol/L Hemoglobin 8.5 L 8.6 L 9.3 L (13.0-17.5) gm/dL Glucose (74-99) mg/dL POC Glucose (mg/dL) (70-110) mg/dL Calcium (8.4-10.2) mg/dL Magnesium (1.6-2.3) mg/dL Total Protein (6.3-8.2) g/dL Albumin (3.5-5.0) g/dL Arterial Blood Glucose 154 H 144 H 124 H (75-99) mg/dL Crossmatch 10/15/24 10/15/24 10/15/24 Range/Units 13:50 13:50 13:50 WBC 20.04 H (4.50-10.00) 10*3/uL RBC 3.10 L (4.40-5.60) 10*6/uL Hgb 10.3 L D (13.0-17.0) g/dL Hct 28.4 L (39.6-50.0) % MCH 33.2 H (27.0-32.0) pg Immature Gran # 0.19 H (0.00-0.04) 10*3/uL Neutrophils # 15.76 H (1.80-7.70) 10*3/uL Monocytes # 1.33 H (0.20-1.00) 10*3/uL PT 12.8 H (10.0-12.5) sec INR 1.2 H (<1.2) ABG pH (7.35-7.45) ABG pCO2 (35-45) mmHg ABG pO2 (83-108) mmHg ABG HCO3 (21-25) mmol/L ABG Total CO2 (19-24) mmol/L ABG O2 Saturation (94-97) % ABG Hematocrit (34.0-46.0) % ABG Ionized Calcium (4.5-5.3) mg/dL ABG Glucose (75-99) mg/dL ABG Lactic Acid (0.5-1.6) mmol/L Hemoglobin (13.0-17.5) gm/dL Glucose 102 H (74-99) mg/dL POC Glucose (mg/dL) (70-110) mg/dL Calcium 7.7 L (8.4-10.2) mg/dL Magnesium 2.4 H (1.6-2.3) mg/dL Total Protein 4.2 L (6.3-8.2) g/dL Albumin 2.5 L (3.5-5.0) g/dL Arterial Blood Glucose (75-99) mg/dL Crossmatch 10/15/24 10/15/24 10/15/24 Range/Units 14:11 14:55 16:03 WBC (4.50-10.00) 10*3/uL RBC (4.40-5.60) 10*6/uL Hgb (13.0-17.0) g/dL Hct (39.6-50.0) % MCH (27.0-32.0) pg Immature Gran # (0.00-0.04) 10*3/uL Neutrophils # (1.80-7.70) 10*3/uL Monocytes # (0.20-1.00) 10*3/uL PT (10.0-12.5) sec INR (<1.2) ABG pH 7.29 L (7.35-7.45) ABG pCO2 54 H (35-45) mmHg ABG pO2 394 H (83-108) mmHg ABG HCO3 26 H (21-25) mmol/L ABG Total CO2 28 H (19-24) mmol/L ABG O2 Saturation >100.0 H (94-97) % ABG Hematocrit (34.0-46.0) % ABG Ionized Calcium (4.5-5.3) mg/dL ABG Glucose (75-99) mg/dL ABG Lactic Acid (0.5-1.6) mmol/L Hemoglobin 10.4 L (13.0-17.5) gm/dL Glucose (74-99) mg/dL POC Glucose (mg/dL) 118 H 167 H (70-110) mg/dL Calcium (8.4-10.2) mg/dL Magnesium (1.6-2.3) mg/dL Total Protein (6.3-8.2) g/dL Albumin (3.5-5.0) g/dL Arterial Blood Glucose (75-99) mg/dL Crossmatch Microbiology - Last 24 Hours (Table) 10/13/24 19:30 Nasal Screen MRSA/MSSA - Final Nasal Swab Assessment and Plan Plan: Coronary artery disease post acute non-ST segment elevation myocardial infarction. 2D echocardiogram which demonstrated a left ventricular ejection fraction to be estimated at 55 to 60%, trace mitral valve regurgitation, trace to mild aortic valve regurgitation, trace tricuspid valve regurgitation, trace pulmonic valve regurgitation, and a normal size aortic root and proximal ascending aorta. The cardiac catheterization which was completed and revealed a 90% stenosis to his mid left anterior descending coronary artery, and 80 to 90% stenosis to his ostial diagonal 2, a 50 to 60% stenosis to his proximal left circumflex coronary artery and a 70% stenosis to his mid right coronary artery. Coronary artery bypass surgery with four-vessel bypass with MENDEZ to LAD, radial to and SVG to PDA and diagonal. The patient is hemodynamically stable. Adequate cardiac output and index. Adequate urine output. Cardiac rhythm is sinus. Postthoracotomy, currently intubated on mechanical ventilator. Chest x-ray was noted. Blood gas was noted. There is a component of respiratory acidosis. Oxygenation is adequate. Chest x-ray shows postsurgical changes. Hypertension Chronic marijuana smoking Former smoker the patient quit smoking 15 years ago Chronic anxiety Poor dentition Plan Keep the patient sedated on propofol Dropped FiO2 gradually to maintain saturation above 90% Increased respiratory rate up to 20 Monitor cardiac output and index Continue atrial fibrillation prophylaxis with amiodarone drip Continue nitroglycerin drip Monitor chest tube output Overall condition is stable. Anticipate extubation within the next 2 to 6 hours. Will collaborate care with cardiothoracic surgery. Critical care evaluation that was done and 33 minutes. Time with Patient: Greater than 30
[2024-10-15 17:02] LABS: Glucose,Whole Blood 152 mg/dL (70-110)
[2024-10-15 17:11] LABS: Basophils # (A) 0.03 10*3/uL (0.00-0.10); Basophils % (A) 0.2 %; Eosinophils # (A) 0.01 10*3/uL (0.04-0.35); Eosinophils % (A) 0.1 %; HCT 29.4 % (39.6-50.0); HGB 10.7 g/dL (13.0-17.0); Lymphocytes # (A) 1.88 10*3/uL (0.90-5.00); Lymphocytes % (A) 11.2 %; MCH 33.0 pg (27.0-32.0); MCHC 36.4 g/dL (32.0-37.0); MCV 90.7 fL (80.0-97.0); Monocytes # (A) 0.66 10*3/uL (0.20-1.00); Monocytes % (A) 3.9 %; Neutrophils # (A) 14.15 10*3/uL (1.80-7.70); Neutrophils % (A) 84.1 %; Platelet Count 184 10*3/uL (140-440); RBC 3.24 10*6/uL (4.40-5.60); RDW 12.1 % (11.5-14.5); WBC 16.82 10*3/uL (4.50-10.00)
[2024-10-15] MEDS: AMIODARONE 450 MG in DEXTROSE 5% IN WATER 250 ML IV SCH (17:30)
[2024-10-15] MEDS: IPRATROPIUM-ALBUTEROL 3 ML NEB INHALATION SCH ×2 (17:40→21:08)
[2024-10-15] MEDS: ACETAMINOPHEN IV (For NPO) 1,000 MG in EMPTY BAG 1 BAG IVPB SCH (17:48)
[2024-10-15] MEDS: KETOROLAC 15 MG/ML 1 ML VIAL IVP SCH (17:49)
[2024-10-15] MEDS: ALBUMIN HUMAN 5% 250 ML in EMPTY BAG 1 BAG IVPB PRN (17:57)
[2024-10-15 18:06] LABS: Glucose,Whole Blood 132 mg/dL (70-110)
[2024-10-15 18:57] LABS: Glucose,Whole Blood 113 mg/dL (70-110)
[2024-10-15 19:58] LABS: Glucose,Whole Blood 163 mg/dL (70-110)
[2024-10-15 20:08] LABS: Basophils # (A) 0.03 10*3/uL (0.00-0.10); Basophils % (A) 0.2 %; Eosinophils # (A) 0.00 10*3/uL (0.04-0.35); Eosinophils % (A) 0.0 %; HCT 25.6 % (39.6-50.0); Lymphocytes # (A) 1.14 10*3/uL (0.90-5.00); Lymphocytes % (A) 8.3 %; MCH 32.6 pg (27.0-32.0); MCHC 35.9 g/dL (32.0-37.0); MCV 90.8 fL (80.0-97.0); Monocytes # (A) 1.02 10*3/uL (0.20-1.00); Monocytes % (A) 7.4 %; Neutrophils # (A) 11.55 10*3/uL (1.80-7.70); Neutrophils % (A) 83.7 %; Platelet Count 159 10*3/uL (140-440); RBC 2.82 10*6/uL (4.40-5.60); RDW 12.1 % (11.5-14.5); WBC 13.80 10*3/uL (4.50-10.00)
[2024-10-15 20:13] LABS: HGB 9.2 g/dL (13.0-17.0)
[2024-10-15 21:17] LABS: Glucose,Whole Blood 154 mg/dL (70-110)
[2024-10-15] MEDS: NOREPINEPHRINE 8 MG in SODIUM CHLORIDE 0.9% 250 ML IV SCH (22:14)
[2024-10-15] MEDS: SENNOSIDES-DOCUSATE SODIUM 1 EACH TAB PO SCH (22:53)
[2024-10-15 23:04] LABS: Glucose,Whole Blood 136 mg/dL (70-110)
[2024-10-16 00:20] LABS: Glucose,Whole Blood 152 mg/dL (70-110)
[2024-10-16 01:14] LABS: Glucose,Whole Blood 146 mg/dL (70-110)
[2024-10-16 02:00] LABS: Glucose,Whole Blood 135 mg/dL (70-110)
[2024-10-16 03:13] LABS: Glucose,Whole Blood 126 mg/dL (70-110)
[2024-10-16 04:51] LABS: Glucose,Whole Blood 139 mg/dL (70-110)
[2024-10-16 05:05] LABS: Basophils # (A) 0.02 10*3/uL (0.00-0.10); Basophils % (A) 0.2 %; Eosinophils # (A) 0.01 10*3/uL (0.04-0.35); Eosinophils % (A) 0.1 %; HCT 24.5 % (39.6-50.0); HGB 8.6 g/dL (13.0-17.0); Lymphocytes # (A) 1.50 10*3/uL (0.90-5.00); Lymphocytes % (A) 13.1 %; MCH 32.2 pg (27.0-32.0); MCHC 35.1 g/dL (32.0-37.0); MCV 91.8 fL (80.0-97.0); Monocytes # (A) 1.19 10*3/uL (0.20-1.00); Monocytes % (A) 10.4 %; Neutrophils # (A) 8.68 10*3/uL (1.80-7.70); Neutrophils % (A) 75.9 %; Platelet Count 160 10*3/uL (140-440); RBC 2.67 10*6/uL (4.40-5.60); RDW 12.4 % (11.5-14.5); WBC 11.44 10*3/uL (4.50-10.00)
[2024-10-16 05:30] LABS: ALT 26 U/L (4-49); AST 73 U/L (17-59); African American GFR (CKD) >90 (>60 ml/min/1.73 sqM); Albumin 3.4 g/dL (3.5-5.0); Alkaline Phosphatase 37 U/L (38-126); Anion Gap 8 mmol/L; Blood Urea Nitrogen 9 mg/dL (9-20); Calcium 7.7 mg/dL (8.4-10.2); Carbon Dioxide 25 mmol/L (22-30); Chloride 102 mmol/L (98-107); Glucose 115 mg/dL (74-99); Magnesium 1.9 mg/dL (1.6-2.3); Non-African American GFR(CKD) >90 (>60 ml/min/1.73 sqM); Potassium 3.9 mmol/L (3.5-5.1); Sodium 135 mmol/L (137-145); Total Protein 5.0 g/dL (6.3-8.2)
--- NOTE | 2024-10-16 05:51 | P.PN ---
Subjective Progress Note Date: 10/15/24 This is a pleasant 48-year-old male who presented to the emergency department with chest pain. Patient reports he was [place] [employer] and walking [id number] doing things throughout the day started having midsternal chest pain that was sharp and intense and intermittent at times although progressively became worse over the day and was persistent and was brought here by family for further evaluation. Patient reports he follows with Dr. Reyna in the [place] area as patient resides there and no significant past medical history other than previous history of hypertension although blood pressures have improved and patient was not taking any medications for them. Patient denies alcohol use or tobacco use but does admit to using marijuana on occasion. Labs reviewed on admission reveal a mildly elevated white count of 11.52, hemoglobin 15.3, platelets 308, D-dimer 0.18, sodium 139 with a potassium of 4.3, BUN 11, creatinine 0.81, magnesium 1.6, initial troponin 0.068, repeat is 0.060, third troponin is 0.051, BNP was 92 and lipase is 434. Patient did admit to some abdominal discomfort when experiencing this pain. Chest x-ray reveals possible underlying COPD otherwise no definitive acute process, EKG shows sinus rhythm and a heart rate of 76 bpm. Patient being admitted and started on IV heparin with cardiology on consultation.. 10/12/2024 Patient is seen in follow-up today currently n.p.o. maintained on heparin and patient is scheduled to undergo cardiac catheterization with cardiology sometime today although unsure of what time. Patient is extremely anxious on exam with significant other at the bedside with questions and concerns that were answered to the best of her ability. Patient continues to report some intermittent chest discomfort although feels he is mostly having withdrawal effects from marijuana as he uses this daily and frequently throughout the day. Patient does have as needed anxiety medications and will continue as needed. Follow-up on repeat labs and continue telemetry monitoring. 10/13/2024 Patient is seen in follow-up today remains n.p.o. maintained on heparin scheduled to undergo cardiac catheterization today. Patient continues to be extremely anxious and reports she is severely nauseated although he feels this is due to n.p.o. status. Recommend mouth swabs and complete n.p.o. for now until cleared by cardiology. This was discussed with family as well as patient at bedside and they are agreeable. Will await official cardiac cath irrigation report as patient also reports he would like to go home. Patient is afebrile with no reports of further chest pain or shortness of breath. 10/14/2024 Patient is seen in follow-up today is tentatively scheduled for cardiovascular thoracic intervention secondary to triple-vessel disease. Patient reports to feeling much improved and his anxiety is improving and reports he is ready for surgery. White count mildly elevated at 13.13, likely reactive, hemoglobin is 15.3, sodium 140 with a potassium of 4.1, BUN is 12 and creatinine is 0.87. Troponin 0.016 and magnesium is 2.0. Patient will be n.p.o. at midnight and will await official cardiology report. Questions and concerns were answered with family at the bedside 10/15/2024 Patient is down in the OR currently undergoing CABG with CT surgery. Will await official report. Review of systems: Constitutional: No reports of fatigue, fever, or chills, reports improvement in anxiety Cardiovascular: No reports of chest pain or palpitations Respiratory: No reports of shortness of breath or cough GI: reports of intermittent nausea, no vomiting, or diarrhea : No reports of dysuria or retention Neurovascular: No reports of weakness or numbness All medications have been reviewed PHYSICAL EXAMINATION: GENERAL: The patient is alert and oriented x3. Well developed, well nourished. Obese HEENT: Pupils are round and equally reacting to light. EOMI. No scleral icterus. No conjunctival pallor. Normocephalic, atraumatic. No pharyngeal erythema. No thyromegaly. CARDIOVASCULAR: S1 and S2 present. No murmurs, rubs, or gallops. PULMONARY: Chest is clear to auscultation, no wheezing or crackles. ABDOMEN: Soft, nontender, nondistended, normoactive bowel sounds. No palpable organomegaly. MUSCULOSKELETAL: No joint swelling or deformity. EXTREMITIES: No cyanosis, clubbing, or pedal edema. NEUROLOGICAL: Gross neurological examination did not reveal any focal deficits. SKIN: No rashes. Assessment: Chest pain,acute NSTEMI, troponins minimally elevated, status post cardiac catheterization revealing 90% stenosis of the mid LAD 80 to 90% ostial diagonal with significant multi-vessel disease, scheduled for CABG 10/15 Extensive daily THC use History of hypertension although not taking any medications per patient Obesity with a BMI of 32.5 GI prophylaxis DVT prophylaxis Full code Plan: Patient was admitted for cardiology evaluation and continued on IV heparin as patient had elevated troponins as mentioned previously. Patient underwent cardiac catheterization 10/13/2024 which revealed 90% mid LAD and significant mu lti-vessel disease, cardiothoracic surgery following and scheduled CABG today 10/15/2024. Patient is NPO. Will await official report Follow-up on repeat labs in monitor kidney functions and electrolytes closely Patient will likely be placed on insulin drip per CABG protocol and will monitor closely and adjust insulins accordingly The impression and plan of care has been dictated by Rachelle Johnson, Nurse Practitioner as directed. Dr. Eulalio MD I have performed a history and examination and MDM of this patient, discussed the same with the dictator, and agree with the dictator's assessment and plan as written ,documented as a scribe. Based on total visit time, I have performed more than 50% of the visit. Objective - Vital Signs Vital signs: Vital Signs Temp 98.6 F 10/16/24 04:45 Pulse 76 10/16/24 05:00 Resp 42 H 10/16/24 05:00 BP 114/54 10/16/24 05:00 Pulse Ox 95 10/16/24 05:00 FiO2 50 10/15/24 16:00 Intake & Output 10/15/24 10/15/24 10/16/24 06:59 18:59 06:59 Intake Total 460 9895.183 7805.754 Output Total 1940 1210 Balance 460 -766.236 487.754 Weight 93.8 kg Intake: IV 120 1079 1620 ACETAMINOPHEN IV (For NPO 100 100 ) 1,000 mg In Empty Bag 1 bag @ 400 mls/hr IVPB Q6HR [facility] Rx#:[id number] Albumin Human 5% 250 ml 500 750 In Empty Bag 1 bag @ 250 mls/hr IVPB Q1HR PRN Rx#: [id number] CO/CI 130 130 Invasive Line 2 20 Pressure 45 90 Sodium Chloride 0.9% 1, 250 500 000 ml @ 50 mls/hr IV . Q20H [facility] Rx#:[id number] ceFAZolin 2 gm In Sodium 50 50 Chloride 0.9% 50 ml @ 100 mls/hr IVPB ONCE ONE Rx# :[id number] Intake, IV Titration 94.764 77.754 Amount Clevidipine Butyrate 25 18.200 mg In Empty Bag 1 bag @ 1 MG/HR 2 mls/hr IV .Q24H PRN Rx#:[id number] Dexmedetomidine/0.9% NaCl 41.146 44.976 (Pmx) 400 mcg In Empty Bag 1 bag @ Titrate IV . Q0M [facility] Rx#:[id number] Insulin Regular 100 unit 4.032 11.094 In Sodium Chloride 0.9% 100 ml @ Per Protocol IV .Q0M [facility] Rx#:[id number] Nitroglycerin-D5w Pmx 50 9.8 mg In Dextrose/Water 1 250ml.bag @ 5 MCG/MIN 1.5 mls/hr IV .Q24H [facility] Rx#: [id number] Norepinephrine 8 mg In 11.884 Sodium Chloride 0.9% 250 ml @ 0.03 MCG/KG/MIN 5. 033 mls/hr IV .Q24H [facility] Rx#:[id number] propofoL 1,000 mg In 31.386 Empty Bag 1 bag @ Titrate IV .Q0M [facility] Rx#: [id number] Oral 340 Output: Chest Tube Drainage 400 500 Left Pleural 30 270 Mediastinal x2 370 230 Urine 1190 710 Estimated Blood Loss 350 Other: Voiding Method Toilet Indwelling Catheter Indwelling Catheter # Voids 2 ABP, PAP, CO, CI - Last Documented Arterial Blood Pressure 105/56 Pulmonary Artery Pressure 29/8 Cardiac Output 6 Cardiac Index 3 - Labs CBC & Chem 7: 10/16/24 04:45 10/16/24 04:45 Labs: Abnormal Lab Results - Last 24 Hours (Table) 10/14/24 10/15/24 10/15/24 Range/Units 15:41 06:14 08:40 WBC (4.50-10.00) 10*3/uL RBC (4.40-5.60) 10*6/uL Hgb (13.0-17.0) g/dL Hct (39.6-50.0) % MCH (27.0-32.0) pg Immature Gran # (0.00-0.04) 10*3/uL Neutrophils # (1.80-7.70) 10*3/uL Monocytes # (0.20-1.00) 10*3/uL Eosinophils # (0.04-0.35) 10*3/uL PT (10.0-12.5) sec INR (<1.2) ABG pH (7.35-7.45) ABG pCO2 (35-45) mmHg ABG pO2 (83-108) mmHg ABG HCO3 (21-25) mmol/L ABG Total CO2 (19-24) mmol/L ABG O2 Saturation 99.2 H (94-97) % ABG Hematocrit (34.0-46.0) % ABG Ionized Calcium (4.5-5.3) mg/dL ABG Glucose (75-99) mg/dL ABG Lactic Acid (0.5-1.6) mmol/L Hemoglobin 12.0 L (13.0-17.5) gm/dL Sodium (137-145) mmol/L Creatinine (0.66-1.25) mg/dL Glucose (74-99) mg/dL POC Glucose (mg/dL) 131 H (70-110) mg/dL Calcium (8.4-10.2) mg/dL Ionized Calcium Jamila (4.5-5.3) mg/dL Magnesium (1.6-2.3) mg/dL AST (17-59) U/L Alkaline Phosphatase (38-126) U/L Total Protein (6.3-8.2) g/dL Albumin (3.5-5.0) g/dL Arterial Blood Glucose (75-99) mg/dL Crossmatch See Detail 10/15/24 10/15/24 10/15/24 Range/Units 09:30 11:25 12:45 WBC (4.50-10.00) 10*3/uL RBC (4.40-5.60) 10*6/uL Hgb (13.0-17.0) g/dL Hct (39.6-50.0) % MCH (27.0-32.0) pg Immature Gran # (0.00-0.04) 10*3/uL Neutrophils # (1.80-7.70) 10*3/uL Monocytes # (0.20-1.00) 10*3/uL Eosinophils # (0.04-0.35) 10*3/uL PT (10.0-12.5) sec INR (<1.2) ABG pH 7.31 L (7.35-7.45) ABG pCO2 50 H (35-45) mmHg ABG pO2 408 H >420 H 401 H (83-108) mmHg ABG HCO3 (21-25) mmol/L ABG Total CO2 (19-24) mmol/L ABG O2 Saturation 99.2 H >99.4 H 99.3 H (94-97) % ABG Hematocrit 26 L 26 L (34.0-46.0) % ABG Ionized Calcium 4.1 L 4.3 L (4.5-5.3) mg/dL ABG Glucose 114 H 154 H 144 H (75-99) mg/dL ABG Lactic Acid 3.1 H* 2.3 H* (0.5-1.6) mmol/L Hemoglobin 11.9 L 8.5 L 8.6 L (13.0-17.5) gm/dL Sodium (137-145) mmol/L Creatinine (0.66-1.25) mg/dL Glucose (74-99) mg/dL POC Glucose (mg/dL) (70-110) mg/dL Calcium (8.4-10.2) mg/dL Ionized Calcium Jamila (4.5-5.3) mg/dL Magnesium (1.6-2.3) mg/dL AST (17-59) U/L Alkaline Phosphatase (38-126) U/L Total Protein (6.3-8.2) g/dL Albumin (3.5-5.0) g/dL Arterial Blood Glucose 114 H 154 H 144 H (75-99) mg/dL Crossmatch 10/15/24 10/15/24 10/15/24 Range/Units 13:10 13:50 13:50 WBC 20.04 H (4.50-10.00) 10*3/uL RBC 3.10 L (4.40-5.60) 10*6/uL Hgb 10.3 L D (13.0-17.0) g/dL Hct 28.4 L (39.6-50.0) % MCH 33.2 H (27.0-32.0) pg Immature Gran # 0.19 H (0.00-0.04) 10*3/uL Neutrophils # 15.76 H (1.80-7.70) 10*3/uL Monocytes # 1.33 H (0.20-1.00) 10*3/uL Eosinophils # (0.04-0.35) 10*3/uL PT 12.8 H (10.0-12.5) sec INR 1.2 H (<1.2) ABG pH (7.35-7.45) ABG pCO2 (35-45) mmHg ABG pO2 380 H (83-108) mmHg ABG HCO3 (21-25) mmol/L ABG Total CO2 (19-24) mmol/L ABG O2 Saturation >99.4 H (94-97) % ABG Hematocrit 29 L (34.0-46.0) % ABG Ionized Calcium 4.4 L (4.5-5.3) mg/dL ABG Glucose 124 H (75-99) mg/dL ABG Lactic Acid 1.9 H (0.5-1.6) mmol/L Hemoglobin 9.3 L (13.0-17.5) gm/dL Sodium (137-145) mmol/L Creatinine (0.66-1.25) mg/dL Glucose (74-99) mg/dL POC Glucose (mg/dL) (70-110) mg/dL Calcium (8.4-10.2) mg/dL Ionized Calcium Jamila (4.5-5.3) mg/dL Magnesium (1.6-2.3) mg/dL AST (17-59) U/L Alkaline Phosphatase (38-126) U/L Total Protein (6.3-8.2) g/dL Albumin (3.5-5.0) g/dL Arterial Blood Glucose 124 H (75-99) mg/dL Crossmatch 10/15/24 10/15/24 10/15/24 Range/Units 13:50 14:11 14:55 WBC (4.50-10.00) 10*3/uL RBC (4.40-5.60) 10*6/uL Hgb (13.0-17.0) g/dL Hct (39.6-50.0) % MCH (27.0-32.0) pg Immature Gran # (0.00-0.04) 10*3/uL Neutrophils # (1.80-7.70) 10*3/uL Monocytes # (0.20-1.00) 10*3/uL Eosinophils # (0.04-0.35) 10*3/uL PT (10.0-12.5) sec INR (<1.2) ABG pH 7.29 L (7.35-7.45) ABG pCO2 54 H (35-45) mmHg ABG pO2 394 H (83-108) mmHg ABG HCO3 26 H (21-25) mmol/L ABG Total CO2 28 H (19-24) mmol/L ABG O2 Saturation >100.0 H (94-97) % ABG Hematocrit (34.0-46.0) % ABG Ionized Calcium (4.5-5.3) mg/dL ABG Glucose (75-99) mg/dL ABG Lactic Acid (0.5-1.6) mmol/L Hemoglobin 10.4 L (13.0-17.5) gm/dL Sodium (137-145) mmol/L Creatinine (0.66-1.25) mg/dL Glucose 102 H (74-99) mg/dL POC Glucose (mg/dL) 118 H (70-110) mg/dL Calcium 7.7 L (8.4-10.2) mg/dL Ionized Calcium Jamila (4.5-5.3) mg/dL Magnesium 2.4 H (1.6-2.3) mg/dL AST (17-59) U/L Alkaline Phosphatase (38-126) U/L Total Protein 4.2 L (6.3-8.2) g/dL Albumin 2.5 L (3.5-5.0) g/dL Arterial Blood Glucose (75-99) mg/dL Crossmatch 10/15/24 10/15/24 10/15/24 Range/Units 16:03 17:00 17:01 WBC 16.82 H (4.50-10.00) 10*3/uL RBC 3.24 L (4.40-5.60) 10*6/uL Hgb 10.7 L (13.0-17.0) g/dL Hct 29.4 L (39.6-50.0) % MCH 33.0 H (27.0-32.0) pg Immature Gran # 0.09 H (0.00-0.04) 10*3/uL Neutrophils # 14.15 H (1.80-7.70) 10*3/uL Monocytes # (0.20-1.00) 10*3/uL Eosinophils # 0.01 L (0.04-0.35) 10*3/uL PT (10.0-12.5) sec INR (<1.2) ABG pH (7.35-7.45) ABG pCO2 (35-45) mmHg ABG pO2 (83-108) mmHg ABG HCO3 (21-25) mmol/L ABG Total CO2 (19-24) mmol/L ABG O2 Saturation (94-97) % ABG Hematocrit (34.0-46.0) % ABG Ionized Calcium (4.5-5.3) mg/dL ABG Glucose (75-99) mg/dL ABG Lactic Acid (0.5-1.6) mmol/L Hemoglobin (13.0-17.5) gm/dL Sodium (137-145) mmol/L Creatinine (0.66-1.25) mg/dL Glucose (74-99) mg/dL POC Glucose (mg/dL) 167 H 152 H (70-110) mg/dL Calcium (8.4-10.2) mg/dL Ionized Calcium Jamila (4.5-5.3) mg/dL Magnesium (1.6-2.3) mg/dL AST (17-59) U/L Alkaline Phosphatase (38-126) U/L Total Protein (6.3-8.2) g/dL Albumin (3.5-5.0) g/dL Arterial Blood Glucose (75-99) mg/dL Crossmatch 10/15/24 10/15/24 10/15/24 Range/Units 18:05 18:56 19:55 WBC 13.80 H (4.50-10.00) 10*3/uL RBC 2.82 L (4.40-5.60) 10*6/uL Hgb 9.2 L D (13.0-17.0) g/dL Hct 25.6 L (39.6-50.0) % MCH 32.6 H (27.0-32.0) pg Immature Gran # 0.06 H (0.00-0.04) 10*3/uL Neutrophils # 11.55 H (1.80-7.70) 10*3/uL Monocytes # 1.02 H (0.20-1.00) 10*3/uL Eosinophils # 0.00 L (0.04-0.35) 10*3/uL PT (10.0-12.5) sec INR (<1.2) ABG pH (7.35-7.45) ABG pCO2 (35-45) mmHg ABG pO2 (83-108) mmHg ABG HCO3 (21-25) mmol/L ABG Total CO2 (19-24) mmol/L ABG O2 Saturation (94-97) % ABG Hematocrit (34.0-46.0) % ABG Ionized Calcium (4.5-5.3) mg/dL ABG Glucose (75-99) mg/dL ABG Lactic Acid (0.5-1.6) mmol/L Hemoglobin (13.0-17.5) gm/dL Sodium (137-145) mmol/L Creatinine (0.66-1.25) mg/dL Glucose (74-99) mg/dL POC Glucose (mg/dL) 132 H 113 H (70-110) mg/dL Calcium (8.4-10.2) mg/dL Ionized Calcium Jamila (4.5-5.3) mg/dL Magnesium (1.6-2.3) mg/dL AST (17-59) U/L Alkaline Phosphatase (38-126) U/L Total Protein (6.3-8.2) g/dL Albumin (3.5-5.0) g/dL Arterial Blood Glucose (75-99) mg/dL Crossmatch 10/15/24 10/15/24 10/15/24 Range/Units 19:56 21:15 23:03 WBC (4.50-10.00) 10*3/uL RBC (4.40-5.60) 10*6/uL Hgb (13.0-17.0) g/dL Hct (39.6-50.0) % MCH (27.0-32.0) pg Immature Gran # (0.00-0.04) 10*3/uL Neutrophils # (1.80-7.70) 10*3/uL Monocytes # (0.20-1.00) 10*3/uL Eosinophils # (0.04-0.35) 10*3/uL PT (10.0-12.5) sec INR (<1.2) ABG pH (7.35-7.45) ABG pCO2 (35-45) mmHg ABG pO2 (83-108) mmHg ABG HCO3 (21-25) mmol/L ABG Total CO2 (19-24) mmol/L ABG O2 Saturation (94-97) % ABG Hematocrit (34.0-46.0) % ABG Ionized Calcium (4.5-5.3) mg/dL ABG Glucose (75-99) mg/dL ABG Lactic Acid (0.5-1.6) mmol/L Hemoglobin (13.0-17.5) gm/dL Sodium (137-145) mmol/L Creatinine (0.66-1.25) mg/dL Glucose (74-99) mg/dL POC Glucose (mg/dL) 163 H 154 H 136 H (70-110) mg/dL Calcium (8.4-10.2) mg/dL Ionized Calcium Jamila (4.5-5.3) mg/dL Magnesium (1.6-2.3) mg/dL AST (17-59) U/L Alkaline Phosphatase (38-126) U/L Total Protein (6.3-8.2) g/dL Albumin (3.5-5.0) g/dL Arterial Blood Glucose (75-99) mg/dL Crossmatch 10/16/24 10/16/24 10/16/24 Range/Units 00:18 01:12 01:58 WBC (4.50-10.00) 10*3/uL RBC (4.40-5.60) 10*6/uL Hgb (13.0-17.0) g/dL Hct (39.6-50.0) % MCH (27.0-32.0) pg Immature Gran # (0.00-0.04) 10*3/uL Neutrophils # (1.80-7.70) 10*3/uL Monocytes # (0.20-1.00) 10*3/uL Eosinophils # (0.04-0.35) 10*3/uL PT (10.0-12.5) sec INR (<1.2) ABG pH (7.35-7.45) ABG pCO2 (35-45) mmHg ABG pO2 (83-108) mmHg ABG HCO3 (21-25) mmol/L ABG Total CO2 (19-24) mmol/L ABG O2 Saturation (94-97) % ABG Hematocrit (34.0-46.0) % ABG Ionized Calcium (4.5-5.3) mg/dL ABG Glucose (75-99) mg/dL ABG Lactic Acid (0.5-1.6) mmol/L Hemoglobin (13.0-17.5) gm/dL Sodium (137-145) mmol/L Creatinine (0.66-1.25) mg/dL Glucose (74-99) mg/dL POC Glucose (mg/dL) 152 H 146 H 135 H (70-110) mg/dL Calcium (8.4-10.2) mg/dL Ionized Calcium Jamila (4.5-5.3) mg/dL Magnesium (1.6-2.3) mg/dL AST (17-59) U/L Alkaline Phosphatase (38-126) U/L Total Protein (6.3-8.2) g/dL Albumin (3.5-5.0) g/dL Arterial Blood Glucose (75-99) mg/dL Crossmatch 10/16/24 10/16/24 10/16/24 Range/Units 03:12 04:45 04:45 WBC 11.44 H (4.50-10.00) 10*3/uL RBC 2.67 L (4.40-5.60) 10*6/uL Hgb 8.6 L (13.0-17.0) g/dL Hct 24.5 L (39.6-50.0) % MCH 32.2 H (27.0-32.0) pg Immature Gran # (0.00-0.04) 10*3/uL Neutrophils # 8.68 H (1.80-7.70) 10*3/uL Monocytes # 1.19 H (0.20-1.00) 10*3/uL Eosinophils # 0.01 L (0.04-0.35) 10*3/uL PT (10.0-12.5) sec INR (<1.2) ABG pH (7.35-7.45) ABG pCO2 (35-45) mmHg ABG pO2 (83-108) mmHg ABG HCO3 (21-25) mmol/L ABG Total CO2 (19-24) mmol/L ABG O2 Saturation (94-97) % ABG Hematocrit (34.0-46.0) % ABG Ionized Calcium (4.5-5.3) mg/dL ABG Glucose (75-99) mg/dL ABG Lactic Acid (0.5-1.6) mmol/L Hemoglobin (13.0-17.5) gm/dL Sodium 135 L (137-145) mmol/L Creatinine 0.60 L (0.66-1.25) mg/dL Glucose 115 H (74-99) mg/dL POC Glucose (mg/dL) 126 H (70-110) mg/dL Calcium 7.7 L (8.4-10.2) mg/dL Ionized Calcium Jamila 4.2 L (4.5-5.3) mg/dL Magnesium (1.6-2.3) mg/dL AST 73 H (17-59) U/L Alkaline Phosphatase 37 L (38-126) U/L Total Protein 5.0 L (6.3-8.2) g/dL Albumin 3.4 L (3.5-5.0) g/dL Arterial Blood Glucose (75-99) mg/dL Crossmatch 10/16/24 Range/Units 04:48 WBC (4.50-10.00) 10*3/uL RBC (4.40-5.60) 10*6/uL Hgb (13.0-17.0) g/dL Hct (39.6-50.0) % MCH (27.0-32.0) pg Immature Gran # (0.00-0.04) 10*3/uL Neutrophils # (1.80-7.70) 10*3/uL Monocytes # (0.20-1.00) 10*3/uL Eosinophils # (0.04-0.35) 10*3/uL PT (10.0-12.5) sec INR (<1.2) ABG pH (7.35-7.45) ABG pCO2 (35-45) mmHg ABG pO2 (83-108) mmHg ABG HCO3 (21-25) mmol/L ABG Total CO2 (19-24) mmol/L ABG O2 Saturation (94-97) % ABG Hematocrit (34.0-46.0) % ABG Ionized Calcium (4.5-5.3) mg/dL ABG Glucose (75-99) mg/dL ABG Lactic Acid (0.5-1.6) mmol/L Hemoglobin (13.0-17.5) gm/dL Sodium (137-145) mmol/L Creatinine (0.66-1.25) mg/dL Glucose (74-99) mg/dL POC Glucose (mg/dL) 139 H (70-110) mg/dL Calcium (8.4-10.2) mg/dL Ionized Calcium Jamila (4.5-5.3) mg/dL Magnesium (1.6-2.3) mg/dL AST (17-59) U/L Alkaline Phosphatase (38-126) U/L Total Protein (6.3-8.2) g/dL Albumin (3.5-5.0) g/dL Arterial Blood Glucose (75-99) mg/dL Crossmatch Microbiology - Last 24 Hours (Table) 10/13/24 19:30 Nasal Screen MRSA/MSSA - Final Nasal Swab
[2024-10-16 07:05] LABS: Glucose,Whole Blood 150 mg/dL (70-110)
--- NOTE | 2024-10-16 07:14 | P.PN ---
Subjective Progress Note Date: 10/16/24 Principal diagnosis: Multivessel coronary artery disease, non-ST elevated myocardial infarction this admission. Previous medical history of hypertension currently not taking any a ntihypertensives outpatient, poor dentition, family history of early onset coronary artery disease, anxiety, current chewing tobacco use, cessation of cigarette smoking 15 years ago, and daily marijuana use smoking 8-10 joints daily POD#1 coronary artery bypass graft x 4 with left internal mammary artery to left anterior descending artery, RADIAL to obtuse marginal branch, saphenous vein graft to posterior descending artery, saphenous vein graft to DIAGONAL, left atrial appendage occlusion 35 mm Atriclip, medistim graft flow measurement, endoscopic harvest left greater saphenous vein, endoscopic harvest left radial artery Postoperative acute blood loss anemia, expected given hemodilution and cardiopulmonary bypass pump The patient was seen and examined this morning sitting up in recliner in the intensive care unit in no acute distress. He was successfully extubated last night at 17:31. Remains in sinus rhythm, hemodynamically stable on no inotropes or pressors currently. He had been on Cleviprex for hypertension after surgery, once extubated was hypotensive for a brief time and required IV Levophed which has been off since 2 AM. These were all expected postoperative events. He does remain on IV amiodarone for atrial fibrillation prophylaxis. Currently on room air with oxygen saturation in the mid 90s, able to achieve 750 mL on incentive spirometry. He does complain of expected postsurgical pain mostly controlled but not completely with current medication regimen, denies shortness of breath. Right internal jugular [place]/Cordis, right radial arterial line, mediastinal/left pleural chest tubes all remain. Objective - Vital Signs Vital signs: Vital Signs Temp 98.6 F 10/16/24 04:45 Pulse 80 10/16/24 06:00 Resp 18 10/16/24 06:00 BP 99/64 10/16/24 05:45 Pulse Ox 95 10/16/24 06:00 FiO2 50 10/15/24 16:00 Intake & Output 10/15/24 10/15/24 10/16/24 06:59 18:59 06:59 Intake Total 460 3721.858 8237.754 Output Total 1940 1440 Balance 460 -766.236 416.754 Weight 93.8 kg Intake: IV 120 1079 1679 ACETAMINOPHEN IV (For NPO 100 100 ) 1,000 mg In Empty Bag 1 bag @ 400 mls/hr IVPB Q6HR ROLANDO Rx#:[id number] Albumin Human 5% 250 ml 500 750 In Empty Bag 1 bag @ 250 mls/hr IVPB Q1HR PRN Rx#: [id number] CO/CI 130 130 Invasive Line 2 20 Pressure 45 99 Sodium Chloride 0.9% 1, 250 550 000 ml @ 50 mls/hr IV . Q20H ROLANDO Rx#:[id number] ceFAZolin 2 gm In Sodium 50 50 Chloride 0.9% 50 ml @ 100 mls/hr IVPB ONCE ONE Rx# :[id number] Intake, IV Titration 94.764 77.754 Amount Clevidipine Butyrate 25 18.200 mg In Empty Bag 1 bag @ 1 MG/HR 2 mls/hr IV .Q24H PRN Rx#:[id number] Dexmedetomidine/0.9% NaCl 41.146 44.976 (Pmx) 400 mcg In Empty Bag 1 bag @ Titrate IV . Q0M ROLANDO Rx#:[id number] Insulin Regular 100 unit 4.032 11.094 In Sodium Chloride 0.9% 100 ml @ Per Protocol IV .Q0M ROLANDO Rx#:[id number] Nitroglycerin-D5w Pmx 50 9.8 mg In Dextrose/Water 1 250ml.bag @ 5 MCG/MIN 1.5 mls/hr IV .Q24H ROLANDO Rx#: [id number] Norepinephrine 8 mg In 11.884 Sodium Chloride 0.9% 250 ml @ 0.03 MCG/KG/MIN 5. 033 mls/hr IV .Q24H ROLANDO Rx#:[id number] propofoL 1,000 mg In 31.386 Empty Bag 1 bag @ Titrate IV .Q0M ROLANDO Rx#: [id number] Oral 340 100 Output: Chest Tube Drainage 400 700 Left Pleural 30 370 Mediastinal x2 370 330 Urine 1190 740 Estimated Blood Loss 350 Other: Voiding Method Toilet Indwelling Catheter Indwelling Catheter # Voids 2 ABP, PAP, CO, CI - Last Documented Arterial Blood Pressure 47/38 Pulmonary Artery Pressure 26/10 Cardiac Output 6 Cardiac Index 3 - Exam CONSTITUTIONAL: Appears mostly comfortable, cooperative, no acute distress RESPIRATORY: Lungs sounds diminished in the bases bilaterally. Respirations even, nonlabored. Currently on room air with oxygen saturation 94%. Able to achieve 750 mL on incentive spirometry. Strong cough. CARDIOVASCULAR: S1, S2 present. Regular rate and rhythm, sinus rhythm on telemetry. Sternum stable. Palpable peripheral pulses bilaterally. No edema present. No calf pain or tenderness noted. Heart hugger in place with patient demonstrating appropriate use. Antiembolism stockings, SCDs present. GASTROINTESTINAL: Abdomen soft, nontender, nondistended. Hypoactive bowel sounds present 4 quadrants. Tolerating minimal clear liquids. Positive flatus GENITOURINARY: Chakraborty present draining clear, yellow urine. Output overnight 30-100 mL per hour INTEGUMENTARY: Skin is warm and dry with evidence of good perfusion. Anterior chest incision well approximated and covered with dry intact dressing. Left radial artery harvest site as well as left lower extremity EVH site well approximated without redness or drainage. NEUROLOGIC: Cranial nerves II through XII intact MUSKULOSKELETAL: Able to move all extremities, strength equal bilaterally, gait normal PSYCHIATRIC: Alert and oriented to person place and time, appropriate affect, intact judgment and insight INVASIVE LINES AND TUBES: Mediastinal/left pleural chest tubes present and c onnected to wall suction, no air leaks present. Mediastinal tube with 210 mL serosanguineous drainage overnight, 750 mL since surgery. Left pleural chest tube with 370 mL serosanguineous drainage overnight, 400 mL since surgery. A/V epicardial pacemaker wires present, connected to generator, VVI mode with backup rate 50 bpm. Right internal jugular [place]/Cordis, right radial arterial line present. Last CO/CI 7.2/3.5, PA 26/8, CVP 4. - Allied health notes Allied health notes reviewed: nursing - Labs CBC & Chem 7: 10/16/24 04:45 10/16/24 04:45 Labs: Abnormal Lab Results - Last 24 Hours (Table) 10/14/24 10/15/24 10/15/24 Range/Units 15:41 08:40 09:30 WBC (4.50-10.00) 10*3/uL RBC (4.40-5.60) 10*6/uL Hgb (13.0-17.0) g/dL Hct (39.6-50.0) % MCH (27.0-32.0) pg Immature Gran # (0.00-0.04) 10*3/uL Neutrophils # (1.80-7.70) 10*3/uL Monocytes # (0.20-1.00) 10*3/uL Eosinophils # (0.04-0.35) 10*3/uL PT (10.0-12.5) sec INR (<1.2) ABG pH (7.35-7.45) ABG pCO2 (35-45) mmHg ABG pO2 408 H (83-108) mmHg ABG HCO3 (21-25) mmol/L ABG Total CO2 (19-24) mmol/L ABG O2 Saturation 99.2 H 99.2 H (94-97) % ABG Hematocrit (34.0-46.0) % ABG Ionized Calcium (4.5-5.3) mg/dL ABG Glucose 114 H (75-99) mg/dL ABG Lactic Acid (0.5-1.6) mmol/L Hemoglobin 12.0 L 11.9 L (13.0-17.5) gm/dL Sodium (137-145) mmol/L Creatinine (0.66-1.25) mg/dL Glucose (74-99) mg/dL POC Glucose (mg/dL) (70-110) mg/dL Calcium (8.4-10.2) mg/dL Ionized Calcium Jamila (4.5-5.3) mg/dL Magnesium (1.6-2.3) mg/dL AST (17-59) U/L Alkaline Phosphatase (38-126) U/L Total Protein (6.3-8.2) g/dL Albumin (3.5-5.0) g/dL Arterial Blood Glucose 114 H (75-99) mg/dL Crossmatch See Detail 10/15/24 10/15/24 10/15/24 Range/Units 11:25 12:45 13:10 WBC (4.50-10.00) 10*3/uL RBC (4.40-5.60) 10*6/uL Hgb (13.0-17.0) g/dL Hct (39.6-50.0) % MCH (27.0-32.0) pg Immature Gran # (0.00-0.04) 10*3/uL Neutrophils # (1.80-7.70) 10*3/uL Monocytes # (0.20-1.00) 10*3/uL Eosinophils # (0.04-0.35) 10*3/uL PT (10.0-12.5) sec INR (<1.2) ABG pH 7.31 L (7.35-7.45) ABG pCO2 50 H (35-45) mmHg ABG pO2 >420 H 401 H 380 H (83-108) mmHg ABG HCO3 (21-25) mmol/L ABG Total CO2 (19-24) mmol/L ABG O2 Saturation >99.4 H 99.3 H >99.4 H (94-97) % ABG Hematocrit 26 L 26 L 29 L (34.0-46.0) % ABG Ionized Calcium 4.1 L 4.3 L 4.4 L (4.5-5.3) mg/dL ABG Glucose 154 H 144 H 124 H (75-99) mg/dL ABG Lactic Acid 3.1 H* 2.3 H* 1.9 H (0.5-1.6) mmol/L Hemoglobin 8.5 L 8.6 L 9.3 L (13.0-17.5) gm/dL Sodium (137-145) mmol/L Creatinine (0.66-1.25) mg/dL Glucose (74-99) mg/dL POC Glucose (mg/dL) (70-110) mg/dL Calcium (8.4-10.2) mg/dL Ionized Calcium Jamila (4.5-5.3) mg/dL Magnesium (1.6-2.3) mg/dL AST (17-59) U/L Alkaline Phosphatase (38-126) U/L Total Protein (6.3-8.2) g/dL Albumin (3.5-5.0) g/dL Arterial Blood Glucose 154 H 144 H 124 H (75-99) mg/dL Crossmatch 10/15/24 10/15/24 10/15/24 Range/Units 13:50 13:50 13:50 WBC 20.04 H (4.50-10.00) 10*3/uL RBC 3.10 L (4.40-5.60) 10*6/uL Hgb 10.3 L D (13.0-17.0) g/dL Hct 28.4 L (39.6-50.0) % MCH 33.2 H (27.0-32.0) pg Immature Gran # 0.19 H (0.00-0.04) 10*3/uL Neutrophils # 15.76 H (1.80-7.70) 10*3/uL Monocytes # 1.33 H (0.20-1.00) 10*3/uL Eosinophils # (0.04-0.35) 10*3/uL PT 12.8 H (10.0-12.5) sec INR 1.2 H (<1.2) ABG pH (7.35-7.45) ABG pCO2 (35-45) mmHg ABG pO2 (83-108) mmHg ABG HCO3 (21-25) mmol/L ABG Total CO2 (19-24) mmol/L ABG O2 Saturation (94-97) % ABG Hematocrit (34.0-46.0) % ABG Ionized Calcium (4.5-5.3) mg/dL ABG Glucose (75-99) mg/dL ABG Lactic Acid (0.5-1.6) mmol/L Hemoglobin (13.0-17.5) gm/dL Sodium (137-145) mmol/L Creatinine (0.66-1.25) mg/dL Glucose 102 H (74-99) mg/dL POC Glucose (mg/dL) (70-110) mg/dL Calcium 7.7 L (8.4-10.2) mg/dL Ionized Calcium Jamila (4.5-5.3) mg/dL Magnesium 2.4 H (1.6-2.3) mg/dL AST (17-59) U/L Alkaline Phosphatase (38-126) U/L Total Protein 4.2 L (6.3-8.2) g/dL Albumin 2.5 L (3.5-5.0) g/dL Arterial Blood Glucose (75-99) mg/dL Crossmatch 10/15/24 10/15/24 10/15/24 Range/Units 14:11 14:55 16:03 WBC (4.50-10.00) 10*3/uL RBC (4.40-5.60) 10*6/uL Hgb (13.0-17.0) g/dL Hct (39.6-50.0) % MCH (27.0-32.0) pg Immature Gran # (0.00-0.04) 10*3/uL Neutrophils # (1.80-7.70) 10*3/uL Monocytes # (0.20-1.00) 10*3/uL Eosinophils # (0.04-0.35) 10*3/uL PT (10.0-12.5) sec INR (<1.2) ABG pH 7.29 L (7.35-7.45) ABG pCO2 54 H (35-45) mmHg ABG pO2 394 H (83-108) mmHg ABG HCO3 26 H (21-25) mmol/L ABG Total CO2 28 H (19-24) mmol/L ABG O2 Saturation >100.0 H (94-97) % ABG Hematocrit (34.0-46.0) % ABG Ionized Calcium (4.5-5.3) mg/dL ABG Glucose (75-99) mg/dL ABG Lactic Acid (0.5-1.6) mmol/L Hemoglobin 10.4 L (13.0-17.5) gm/dL Sodium (137-145) mmol/L Creatinine (0.66-1.25) mg/dL Glucose (74-99) mg/dL POC Glucose (mg/dL) 118 H 167 H (70-110) mg/dL Calcium (8.4-10.2) mg/dL Ionized Calcium Jamila (4.5-5.3) mg/dL Magnesium (1.6-2.3) mg/dL AST (17-59) U/L Alkaline Phosphatase (38-126) U/L Total Protein (6.3-8.2) g/dL Albumin (3.5-5.0) g/dL Arterial Blood Glucose (75-99) mg/dL Crossmatch 10/15/24 10/15/24 10/15/24 Range/Units 17:00 17:01 18:05 WBC 16.82 H (4.50-10.00) 10*3/uL RBC 3.24 L (4.40-5.60) 10*6/uL Hgb 10.7 L (13.0-17.0) g/dL Hct 29.4 L (39.6-50.0) % MCH 33.0 H (27.0-32.0) pg Immature Gran # 0.09 H (0.00-0.04) 10*3/uL Neutrophils # 14.15 H (1.80-7.70) 10*3/uL Monocytes # (0.20-1.00) 10*3/uL Eosinophils # 0.01 L (0.04-0.35) 10*3/uL PT (10.0-12.5) sec INR (<1.2) ABG pH (7.35-7.45) ABG pCO2 (35-45) mmHg ABG pO2 (83-108) mmHg ABG HCO3 (21-25) mmol/L ABG Total CO2 (19-24) mmol/L ABG O2 Saturation (94-97) % ABG Hematocrit (34.0-46.0) % ABG Ionized Calcium (4.5-5.3) mg/dL ABG Glucose (75-99) mg/dL ABG Lactic Acid (0.5-1.6) mmol/L Hemoglobin (13.0-17.5) gm/dL Sodium (137-145) mmol/L Creatinine (0.66-1.25) mg/dL Glucose (74-99) mg/dL POC Glucose (mg/dL) 152 H 132 H (70-110) mg/dL Calcium (8.4-10.2) mg/dL Ionized Calcium Jamila (4.5-5.3) mg/dL Magnesium (1.6-2.3) mg/dL AST (17-59) U/L Alkaline Phosphatase (38-126) U/L Total Protein (6.3-8.2) g/dL Albumin (3.5-5.0) g/dL Arterial Blood Glucose (75-99) mg/dL Crossmatch 10/15/24 10/15/24 10/15/24 Range/Units 18:56 19:55 19:56 WBC 13.80 H (4.50-10.00) 10*3/uL RBC 2.82 L (4.40-5.60) 10*6/uL Hgb 9.2 L D (13.0-17.0) g/dL Hct 25.6 L (39.6-50.0) % MCH 32.6 H (27.0-32.0) pg Immature Gran # 0.06 H (0.00-0.04) 10*3/uL Neutrophils # 11.55 H (1.80-7.70) 10*3/uL Monocytes # 1.02 H (0.20-1.00) 10*3/uL Eosinophils # 0.00 L (0.04-0.35) 10*3/uL PT (10.0-12.5) sec INR (<1.2) ABG pH (7.35-7.45) ABG pCO2 (35-45) mmHg ABG pO2 (83-108) mmHg ABG HCO3 (21-25) mmol/L ABG Total CO2 (19-24) mmol/L ABG O2 Saturation (94-97) % ABG Hematocrit (34.0-46.0) % ABG Ionized Calcium (4.5-5.3) mg/dL ABG Glucose (75-99) mg/dL ABG Lactic Acid (0.5-1.6) mmol/L Hemoglobin (13.0-17.5) gm/dL Sodium (137-145) mmol/L Creatinine (0.66-1.25) mg/dL Glucose (74-99) mg/dL POC Glucose (mg/dL) 113 H 163 H (70-110) mg/dL Calcium (8.4-10.2) mg/dL Ionized Calcium Jamila (4.5-5.3) mg/dL Magnesium (1.6-2.3) mg/dL AST (17-59) U/L Alkaline Phosphatase (38-126) U/L Total Protein (6.3-8.2) g/dL Albumin (3.5-5.0) g/dL Arterial Blood Glucose (75-99) mg/dL Crossmatch 10/15/24 10/15/24 10/16/24 Range/Units 21:15 23:03 00:18 WBC (4.50-10.00) 10*3/uL RBC (4.40-5.60) 10*6/uL Hgb (13.0-17.0) g/dL Hct (39.6-50.0) % MCH (27.0-32.0) pg Immature Gran # (0.00-0.04) 10*3/uL Neutrophils # (1.80-7.70) 10*3/uL Monocytes # (0.20-1.00) 10*3/uL Eosinophils # (0.04-0.35) 10*3/uL PT (10.0-12.5) sec INR (<1.2) ABG pH (7.35-7.45) ABG pCO2 (35-45) mmHg ABG pO2 (83-108) mmHg ABG HCO3 (21-25) mmol/L ABG Total CO2 (19-24) mmol/L ABG O2 Saturation (94-97) % ABG Hematocrit (34.0-46.0) % ABG Ionized Calcium (4.5-5.3) mg/dL ABG Glucose (75-99) mg/dL ABG Lactic Acid (0.5-1.6) mmol/L Hemoglobin (13.0-17.5) gm/dL Sodium (137-145) mmol/L Creatinine (0.66-1.25) mg/dL Glucose (74-99) mg/dL POC Glucose (mg/dL) 154 H 136 H 152 H (70-110) mg/dL Calcium (8.4-10.2) mg/dL Ionized Calcium Jamila (4.5-5.3) mg/dL Magnesium (1.6-2.3) mg/dL AST (17-59) U/L Alkaline Phosphatase (38-126) U/L Total Protein (6.3-8.2) g/dL Albumin (3.5-5.0) g/dL Arterial Blood Glucose (75-99) mg/dL Crossmatch 10/16/24 10/16/24 10/16/24 Range/Units 01:12 01:58 03:12 WBC (4.50-10.00) 10*3/uL RBC (4.40-5.60) 10*6/uL Hgb (13.0-17.0) g/dL Hct (39.6-50.0) % MCH (27.0-32.0) pg Immature Gran # (0.00-0.04) 10*3/uL Neutrophils # (1.80-7.70) 10*3/uL Monocytes # (0.20-1.00) 10*3/uL Eosinophils # (0.04-0.35) 10*3/uL PT (10.0-12.5) sec INR (<1.2) ABG pH (7.35-7.45) ABG pCO2 (35-45) mmHg ABG pO2 (83-108) mmHg ABG HCO3 (21-25) mmol/L ABG Total CO2 (19-24) mmol/L ABG O2 Saturation (94-97) % ABG Hematocrit (34.0-46.0) % ABG Ionized Calcium (4.5-5.3) mg/dL ABG Glucose (75-99) mg/dL ABG Lactic Acid (0.5-1.6) mmol/L Hemoglobin (13.0-17.5) gm/dL Sodium (137-145) mmol/L Creatinine (0.66-1.25) mg/dL Glucose (74-99) mg/dL POC Glucose (mg/dL) 146 H 135 H 126 H (70-110) mg/dL Calcium (8.4-10.2) mg/dL Ionized Calcium Jamila (4.5-5.3) mg/dL Magnesium (1.6-2.3) mg/dL AST (17-59) U/L Alkaline Phosphatase (38-126) U/L Total Protein (6.3-8.2) g/dL Albumin (3.5-5.0) g/dL Arterial Blood Glucose (75-99) mg/dL Crossmatch 10/16/24 10/16/24 10/16/24 Range/Units 04:45 04:45 04:48 WBC 11.44 H (4.50-10.00) 10*3/uL RBC 2.67 L (4.40-5.60) 10*6/uL Hgb 8.6 L (13.0-17.0) g/dL Hct 24.5 L (39.6-50.0) % MCH 32.2 H (27.0-32.0) pg Immature Gran # (0.00-0.04) 10*3/uL Neutrophils # 8.68 H (1.80-7.70) 10*3/uL Monocytes # 1.19 H (0.20-1.00) 10*3/uL Eosinophils # 0.01 L (0.04-0.35) 10*3/uL PT (10.0-12.5) sec INR (<1.2) ABG pH (7.35-7.45) ABG pCO2 (35-45) mmHg ABG pO2 (83-108) mmHg ABG HCO3 (21-25) mmol/L ABG Total CO2 (19-24) mmol/L ABG O2 Saturation (94-97) % ABG Hematocrit (34.0-46.0) % ABG Ionized Calcium (4.5-5.3) mg/dL ABG Glucose (75-99) mg/dL ABG Lactic Acid (0.5-1.6) mmol/L Hemoglobin (13.0-17.5) gm/dL Sodium 135 L (137-145) mmol/L Creatinine 0.60 L (0.66-1.25) mg/dL Glucose 115 H (74-99) mg/dL POC Glucose (mg/dL) 139 H (70-110) mg/dL Calcium 7.7 L (8.4-10.2) mg/dL Ionized Calcium Jamila 4.2 L (4.5-5.3) mg/dL Magnesium (1.6-2.3) mg/dL AST 73 H (17-59) U/L Alkaline Phosphatase 37 L (38-126) U/L Total Protein 5.0 L (6.3-8.2) g/dL Albumin 3.4 L (3.5-5.0) g/dL Arterial Blood Glucose (75-99) mg/dL Crossmatch Microbiology - Last 24 Hours (Table) 10/13/24 19:30 Nasal Screen MRSA/MSSA - Final Nasal Swab - Imaging and Cardiology Chest x-ray: image reviewed Assessment and Plan Assessment: Multivessel coronary artery disease, non-ST elevated myocardial infarction this admission, status post four-vessel CABG Postoperative acute blood loss anemia, expected given hemodilution and cardiopulmonary bypass pump History of hypertension currently not taking any antihypertensives outpatient Poor dentition Anxiety Current chewing tobacco use, cessation of cigarette smoking 15 years ago Daily marijuana use smoking 8-10 joints daily Family history of early onset coronary artery disease Plan: Continue to maximize medical therapy with aspirin, statin, Plavix, beta-kandy. Will increase beta-kandy therapy as tolerated Continue amiodarone for atrial fibrillation prophylaxis, will transition to oral. Patient has had no atrial fibrillation up to this point Will initiate calcium channel kandy for radial artery spasm prophylaxis when able Encourage incentive spirometry use 10 times every hour while awake, bronchodilators per pulmonology Increase activity, ambulate as tolerated. PT/OT/cardiac rehab consulted Will monitor daily labs and x-rays. Electrolyte replacement per protocol. No Lasix today GI/DVT prophylaxis Insulin management per internal medicine, patient should remain on continuous IV insulin for 48 hours then may transition to subcutaneous per protocol. Patient is not diabetic, preoperative hemoglobin A1c 5.8% Pain control per current medication regimen Discontinue [place]. Connect Cordis to continuous CVP monitoring Continue chest tubes for another 24 hours, monitor record output Continue Chakraborty catheter for another 24 hours, monitor and record strict accurate intake and output More recommendations to follow based on patient's progress
--- NOTE | 2024-10-16 07:28 | XR ---
EXAMINATION TYPE: XR chest 1V portable DATE OF EXAM: 10/16/2024 4:55 AM COMPARISON: Chest radiograph from one day prior. CLINICAL INDICATION: Male, 48 years old with history of Post Operative Cardiac Surgery; [facility] TECHNIQUE: XR chest 1V portable Frontal view of the chest. FINDINGS: Lungs/Pleura: There is no evidence of pleural effusion, focal consolidation, or pneumothorax. Pulmonary vascularity: Unremarkable. Heart/mediastinum: Cardiomediastinal silhouette is unremarkable. Musculoskeletal: No acute osseous pathology. Midline sternotomy wires are noted. Other findings: None Lines/Tubes: Interval removal of the endotracheal tube. Interval removal of the enteric tube, Left thoracotomy tube is present without evidence of pneumothorax. There is a [place] catheter with tip projecting over the spine. Drainage tubes with tips projecting over the mediastinum. IMPRESSION: Postsurgical changes lines and tubes as above. [facility], , 10/16/2024 7:25 AM
[2024-10-16 08:12] LABS: Glucose,Whole Blood 145 mg/dL (70-110)
[2024-10-16] MEDS: ATORVASTATIN 40 MG TAB PO SCH (08:19)
[2024-10-16] MEDS: ASPIRIN 325 MG TAB PO SCH (08:19)
[2024-10-16] MEDS: METOPROLOL TARTRATE 12.5 MG TAB PO SCH (08:19)
[2024-10-16] MEDS: PANTOPRAZOLE 40 MG/10 ML VIAL IVP SCH (08:20)
[2024-10-16] MEDS: CLOPIDOGREL 75 MG TAB PO SCH (08:20)
[2024-10-16] MEDS: AMIODARONE 200 MG TAB PO SCH (08:25)
[2024-10-16] MEDS: ACETAMINOPHEN TAB 325 MG TAB PO PRN (08:32)
[2024-10-16] MEDS: ALPRAZolam 0.25 MG TAB PO PRN (08:43)
[2024-10-16 09:05] LABS: Glucose,Whole Blood 130 mg/dL (70-110)
[2024-10-16] MEDS: POTASSIUM CHLORIDE ER 20 MEQ TAB.ER PO SCH ×3 (09:38→20:16)
[2024-10-16 10:22] LABS: Glucose,Whole Blood 157 mg/dL (70-110)
[2024-10-16] MEDS: MAGNESIUM SULFATE-D5W PMX 1 GM in DEXTROSE/WATER 1 100ML.BAG IVPB ONE ×2 (10:30→11:09)
--- NOTE | 2024-10-16 11:23 | P.PN ---
Subjective Progress Note Date: 10/16/24 The patient is a 48-year-old male who presented to the hospital with chest discomfort and elevated troponins. He was found to have multivessel coronary artery disease and underwent coronary artery bypass yesterday with MENDEZ to LAD, radial to OM, SVG to PDA and SVG to diagonal. Patient did well overnight. He is weaned off of all vasopressors and is up in the recliner chair. Patient interviewed and examined. He does have some mild chest discomfort. No current difficulty breathing. GENERAL: Well-appearing, well-nourished and in no acute distress. NECK: Supple without JVD or thyromegaly. LUNGS: Breath sounds clear to auscultation bilaterally. Respiration equal and unlabored. No wheezes, rales or rhonchi. HEART: Regular rate and rhythm without murmurs, rubs or gallops. S1 and S2 heard. EXTREMITIES: Normal range of motion, no edema. No clubbing or cyanosis. Peripheral pulses intact and strong. VITALS: Hypertensive overnight TELEMETRY: Sinus rhythm LABS: WBC 11.4, hemoglobin 8.6, hematocrit 24.5, platelet 160, sodium 135, potassium 3.9, BUN 9, creatinine 0.60, AST 73, ALT 26, magnesium 1.9 IMPRESSION: Chest pain with elevated troponins, non-STEMI, status post cardiac catheterization revealing multivessel CAD Status post coronary bypass x 4 Hypertension, not taking antihypertensive medications on an outpatient basis Elevated lipase, 434 on admission, resolved Marijuana use PLAN: Continue supportive treatment CV surgery team to manage hypertension Aggressive pulmonary hygiene Further recommendations to be based on clinical course I am dictating on behalf of Dr Edmond Crespo's history/physical and assessment/plan. Objective - Vital Signs Vital signs: Vital Signs Temp 99.0 F 10/16/24 08:00 Pulse 75 10/16/24 10:30 Resp 26 H 10/16/24 10:30 BP 122/72 10/16/24 10:00 Pulse Ox 95 10/16/24 10:30 FiO2 21 10/16/24 09:59 Intake & Output 10/15/24 10/16/24 10/16/24 18:59 06:59 18:59 Intake Total 5466.956 3719.754 101.575 Output Total 1940 1440 130 Balance -766.236 416.754 -28.425 Weight 93.8 kg Intake: IV 1079 5809 89 ACETAMINOPHEN IV (For NPO 100 100 ) 1,000 mg In Empty Bag 1 bag @ 400 mls/hr IVPB Q6HR [facility] Rx#:[id number] Albumin Human 5% 250 ml 500 750 In Empty Bag 1 bag @ 250 mls/hr IVPB Q1HR PRN Rx#: [id number] CO/CI 130 130 30 Pressure 45 99 9 Sodium Chloride 0.9% 1, 250 550 50 000 ml @ 20 mls/hr IV . Q24H [facility] Rx#:[id number] ceFAZolin 2 gm In Sodium 50 50 Chloride 0.9% 50 ml @ 100 mls/hr IVPB ONCE ONE Rx# :[id number] Intake, IV Titration 94.764 77.754 12.575 Amount Clevidipine Butyrate 25 18.200 mg In Empty Bag 1 bag @ 1 MG/HR 2 mls/hr IV .Q24H PRN Rx#:[id number] Dexmedetomidine/0.9% NaCl 41.146 44.976 (Pmx) 400 mcg In Empty Bag 1 bag @ Titrate IV . Q0M [facility] Rx#:[id number] Insulin Regular 100 unit 4.032 11.094 12.575 In Sodium Chloride 0.9% 100 ml @ Per Protocol IV .Q0M [facility] Rx#:[id number] Nitroglycerin-D5w Pmx 50 9.8 mg In Dextrose/Water 1 250ml.bag @ 5 MCG/MIN 1.5 mls/hr IV .Q24H [facility] Rx#: [id number] Norepinephrine 8 mg In 11.884 Sodium Chloride 0.9% 250 ml @ 0.03 MCG/KG/MIN 5. 033 mls/hr IV .Q24H [facility] Rx#:[id number] propofoL 1,000 mg In 31.386 Empty Bag 1 bag @ Titrate IV .Q0M [facility] Rx#: [id number] Oral 100 Output: Chest Tube Drainage 400 700 90 Left Pleural 30 370 10 Mediastinal x2 370 330 80 Urine 1190 740 40 Estimated Blood Loss 350 Other: Voiding Method Indwelling Catheter Indwelling Catheter ABP, PAP, CO, CI - Last Documented Arterial Blood Pressure 177/69 Pulmonary Artery Pressure 26/9 Cardiac Output 7.2 Cardiac Index 3.5 - Labs CBC & Chem 7: 10/16/24 04:45 06/28/25 04:45 Labs: Abnormal Lab Results - Last 24 Hours (Table) 10/14/24 10/15/24 10/15/24 Range/Units 15:41 08:40 09:30 WBC (4.50-10.00) 10*3/uL RBC (4.40-5.60) 10*6/uL Hgb (13.0-17.0) g/dL Hct (39.6-50.0) % MCH (27.0-32.0) pg Immature Gran # (0.00-0.04) 10*3/uL Neutrophils # (1.80-7.70) 10*3/uL Monocytes # (0.20-1.00) 10*3/uL Eosinophils # (0.04-0.35) 10*3/uL PT (10.0-12.5) sec INR (<1.2) ABG pH (7.35-7.45) ABG pCO2 (35-45) mmHg ABG pO2 408 H (83-108) mmHg ABG HCO3 (21-25) mmol/L ABG Total CO2 (19-24) mmol/L ABG O2 Saturation 99.2 H 99.2 H (94-97) % ABG Hematocrit (34.0-46.0) % ABG Ionized Calcium (4.5-5.3) mg/dL ABG Glucose 114 H (75-99) mg/dL ABG Lactic Acid (0.5-1.6) mmol/L Hemoglobin 12.0 L 11.9 L (13.0-17.5) gm/dL Sodium (137-145) mmol/L Creatinine (0.66-1.25) mg/dL Glucose (74-99) mg/dL POC Glucose (mg/dL) (70-110) mg/dL Calcium (8.4-10.2) mg/dL Ionized Calcium Jamila (4.5-5.3) mg/dL Magnesium (1.6-2.3) mg/dL AST (17-59) U/L Alkaline Phosphatase (38-126) U/L Total Protein (6.3-8.2) g/dL Albumin (3.5-5.0) g/dL Arterial Blood Glucose 114 H (75-99) mg/dL Crossmatch See Detail 10/15/24 10/15/24 10/15/24 Range/Units 11:25 12:45 13:10 WBC (4.50-10.00) 10*3/uL RBC (4.40-5.60) 10*6/uL Hgb (13.0-17.0) g/dL Hct (39.6-50.0) % MCH (27.0-32.0) pg Immature Gran # (0.00-0.04) 10*3/uL Neutrophils # (1.80-7.70) 10*3/uL Monocytes # (0.20-1.00) 10*3/uL Eosinophils # (0.04-0.35) 10*3/uL PT (10.0-12.5) sec INR (<1.2) ABG pH 7.31 L (7.35-7.45) ABG pCO2 50 H (35-45) mmHg ABG pO2 >420 H 401 H 380 H (83-108) mmHg ABG HCO3 (21-25) mmol/L ABG Total CO2 (19-24) mmol/L ABG O2 Saturation >99.4 H 99.3 H >99.4 H (94-97) % ABG Hematocrit 26 L 26 L 29 L (34.0-46.0) % ABG Ionized Calcium 4.1 L 4.3 L 4.4 L (4.5-5.3) mg/dL ABG Glucose 154 H 144 H 124 H (75-99) mg/dL ABG Lactic Acid 3.1 H* 2.3 H* 1.9 H (0.5-1.6) mmol/L Hemoglobin 8.5 L 8.6 L 9.3 L (13.0-17.5) gm/dL Sodium (137-145) mmol/L Creatinine (0.66-1.25) mg/dL Glucose (74-99) mg/dL POC Glucose (mg/dL) (70-110) mg/dL Calcium (8.4-10.2) mg/dL Ionized Calcium Jamila (4.5-5.3) mg/dL Magnesium (1.6-2.3) mg/dL AST (17-59) U/L Alkaline Phosphatase (38-126) U/L Total Protein (6.3-8.2) g/dL Albumin (3.5-5.0) g/dL Arterial Blood Glucose 154 H 144 H 124 H (75-99) mg/dL Crossmatch 10/15/24 10/15/24 10/15/24 Range/Units 13:50 13:50 13:50 WBC 20.04 H (4.50-10.00) 10*3/uL RBC 3.10 L (4.40-5.60) 10*6/uL Hgb 10.3 L D (13.0-17.0) g/dL Hct 28.4 L (39.6-50.0) % MCH 33.2 H (27.0-32.0) pg Immature Gran # 0.19 H (0.00-0.04) 10*3/uL Neutrophils # 15.76 H (1.80-7.70) 10*3/uL Monocytes # 1.33 H (0.20-1.00) 10*3/uL Eosinophils # (0.04-0.35) 10*3/uL PT 12.8 H (10.0-12.5) sec INR 1.2 H (<1.2) ABG pH (7.35-7.45) ABG pCO2 (35-45) mmHg ABG pO2 (83-108) mmHg ABG HCO3 (21-25) mmol/L ABG Total CO2 (19-24) mmol/L ABG O2 Saturation (94-97) % ABG Hematocrit (34.0-46.0) % ABG Ionized Calcium (4.5-5.3) mg/dL ABG Glucose (75-99) mg/dL ABG Lactic Acid (0.5-1.6) mmol/L Hemoglobin (13.0-17.5) gm/dL Sodium (137-145) mmol/L Creatinine (0.66-1.25) mg/dL Glucose 102 H (74-99) mg/dL POC Glucose (mg/dL) (70-110) mg/dL Calcium 7.7 L (8.4-10.2) mg/dL Ionized Calcium Jamila (4.5-5.3) mg/dL Magnesium 2.4 H (1.6-2.3) mg/dL AST (17-59) U/L Alkaline Phosphatase (38-126) U/L Total Protein 4.2 L (6.3-8.2) g/dL Albumin 2.5 L (3.5-5.0) g/dL Arterial Blood Glucose (75-99) mg/dL Crossmatch 10/15/24 10/15/24 10/15/24 Range/Units 14:11 14:55 16:03 WBC (4.50-10.00) 10*3/uL RBC (4.40-5.60) 10*6/uL Hgb (13.0-17.0) g/dL Hct (39.6-50.0) % MCH (27.0-32.0) pg Immature Gran # (0.00-0.04) 10*3/uL Neutrophils # (1.80-7.70) 10*3/uL Monocytes # (0.20-1.00) 10*3/uL Eosinophils # (0.04-0.35) 10*3/uL PT (10.0-12.5) sec INR (<1.2) ABG pH 7.29 L (7.35-7.45) ABG pCO2 54 H (35-45) mmHg ABG pO2 394 H (83-108) mmHg ABG HCO3 26 H (21-25) mmol/L ABG Total CO2 28 H (19-24) mmol/L ABG O2 Saturation >100.0 H (94-97) % ABG Hematocrit (34.0-46.0) % ABG Ionized Calcium (4.5-5.3) mg/dL ABG Glucose (75-99) mg/dL ABG Lactic Acid (0.5-1.6) mmol/L Hemoglobin 10.4 L (13.0-17.5) gm/dL Sodium (137-145) mmol/L Creatinine (0.66-1.25) mg/dL Glucose (74-99) mg/dL POC Glucose (mg/dL) 118 H 167 H (70-110) mg/dL Calcium (8.4-10.2) mg/dL Ionized Calcium Jamila (4.5-5.3) mg/dL Magnesium (1.6-2.3) mg/dL AST (17-59) U/L Alkaline Phosphatase (38-126) U/L Total Protein (6.3-8.2) g/dL Albumin (3.5-5.0) g/dL Arterial Blood Glucose (75-99) mg/dL Crossmatch 10/15/24 10/15/24 10/15/24 Range/Units 17:00 17:01 18:05 WBC 16.82 H (4.50-10.00) 10*3/uL RBC 3.24 L (4.40-5.60) 10*6/uL Hgb 10.7 L (13.0-17.0) g/dL Hct 29.4 L (39.6-50.0) % MCH 33.0 H (27.0-32.0) pg Immature Gran # 0.09 H (0.00-0.04) 10*3/uL Neutrophils # 14.15 H (1.80-7.70) 10*3/uL Monocytes # (0.20-1.00) 10*3/uL Eosinophils # 0.01 L (0.04-0.35) 10*3/uL PT (10.0-12.5) sec INR (<1.2) ABG pH (7.35-7.45) ABG pCO2 (35-45) mmHg ABG pO2 (83-108) mmHg ABG HCO3 (21-25) mmol/L ABG Total CO2 (19-24) mmol/L ABG O2 Saturation (94-97) % ABG Hematocrit (34.0-46.0) % ABG Ionized Calcium (4.5-5.3) mg/dL ABG Glucose (75-99) mg/dL ABG Lactic Acid (0.5-1.6) mmol/L Hemoglobin (13.0-17.5) gm/dL Sodium (137-145) mmol/L Creatinine (0.66-1.25) mg/dL Glucose (74-99) mg/dL POC Glucose (mg/dL) 152 H 132 H (70-110) mg/dL Calcium (8.4-10.2) mg/dL Ionized Calcium Jamila (4.5-5.3) mg/dL Magnesium (1.6-2.3) mg/dL AST (17-59) U/L Alkaline Phosphatase (38-126) U/L Total Protein (6.3-8.2) g/dL Albumin (3.5-5.0) g/dL Arterial Blood Glucose (75-99) mg/dL Crossmatch 10/15/24 10/15/24 10/15/24 Range/Units 18:56 19:55 19:56 WBC 13.80 H (4.50-10.00) 10*3/uL RBC 2.82 L (4.40-5.60) 10*6/uL Hgb 9.2 L D (13.0-17.0) g/dL Hct 25.6 L (39.6-50.0) % MCH 32.6 H (27.0-32.0) pg Immature Gran # 0.06 H (0.00-0.04) 10*3/uL Neutrophils # 11.55 H (1.80-7.70) 10*3/uL Monocytes # 1.02 H (0.20-1.00) 10*3/uL Eosinophils # 0.00 L (0.04-0.35) 10*3/uL PT (10.0-12.5) sec INR (<1.2) ABG pH (7.35-7.45) ABG pCO2 (35-45) mmHg ABG pO2 (83-108) mmHg ABG HCO3 (21-25) mmol/L ABG Total CO2 (19-24) mmol/L ABG O2 Saturation (94-97) % ABG Hematocrit (34.0-46.0) % ABG Ionized Calcium (4.5-5.3) mg/dL ABG Glucose (75-99) mg/dL ABG Lactic Acid (0.5-1.6) mmol/L Hemoglobin (13.0-17.5) gm/dL Sodium (137-145) mmol/L Creatinine (0.66-1.25) mg/dL Glucose (74-99) mg/dL POC Glucose (mg/dL) 113 H 163 H (70-110) mg/dL Calcium (8.4-10.2) mg/dL Ionized Calcium Jamila (4.5-5.3) mg/dL Magnesium (1.6-2.3) mg/dL AST (17-59) U/L Alkaline Phosphatase (38-126) U/L Total Protein (6.3-8.2) g/dL Albumin (3.5-5.0) g/dL Arterial Blood Glucose (75-99) mg/dL Crossmatch 10/15/24 10/15/24 10/16/24 Range/Units 21:15 23:03 00:18 WBC (4.50-10.00) 10*3/uL RBC (4.40-5.60) 10*6/uL Hgb (13.0-17.0) g/dL Hct (39.6-50.0) % MCH (27.0-32.0) pg Immature Gran # (0.00-0.04) 10*3/uL Neutrophils # (1.80-7.70) 10*3/uL Monocytes # (0.20-1.00) 10*3/uL Eosinophils # (0.04-0.35) 10*3/uL PT (10.0-12.5) sec INR (<1.2) ABG pH (7.35-7.45) ABG pCO2 (35-45) mmHg ABG pO2 (83-108) mmHg ABG HCO3 (21-25) mmol/L ABG Total CO2 (19-24) mmol/L ABG O2 Saturation (94-97) % ABG Hematocrit (34.0-46.0) % ABG Ionized Calcium (4.5-5.3) mg/dL ABG Glucose (75-99) mg/dL ABG Lactic Acid (0.5-1.6) mmol/L Hemoglobin (13.0-17.5) gm/dL Sodium (137-145) mmol/L Creatinine (0.66-1.25) mg/dL Glucose (74-99) mg/dL POC Glucose (mg/dL) 154 H 136 H 152 H (70-110) mg/dL Calcium (8.4-10.2) mg/dL Ionized Calcium Jamila (4.5-5.3) mg/dL Magnesium (1.6-2.3) mg/dL AST (17-59) U/L Alkaline Phosphatase (38-126) U/L Total Protein (6.3-8.2) g/dL Albumin (3.5-5.0) g/dL Arterial Blood Glucose (75-99) mg/dL Crossmatch 10/16/24 10/16/24 10/16/24 Range/Units 01:12 01:58 03:12 WBC (4.50-10.00) 10*3/uL RBC (4.40-5.60) 10*6/uL Hgb (13.0-17.0) g/dL Hct (39.6-50.0) % MCH (27.0-32.0) pg Immature Gran # (0.00-0.04) 10*3/uL Neutrophils # (1.80-7.70) 10*3/uL Monocytes # (0.20-1.00) 10*3/uL Eosinophils # (0.04-0.35) 10*3/uL PT (10.0-12.5) sec INR (<1.2) ABG pH (7.35-7.45) ABG pCO2 (35-45) mmHg ABG pO2 (83-108) mmHg ABG HCO3 (21-25) mmol/L ABG Total CO2 (19-24) mmol/L ABG O2 Saturation (94-97) % ABG Hematocrit (34.0-46.0) % ABG Ionized Calcium (4.5-5.3) mg/dL ABG Glucose (75-99) mg/dL ABG Lactic Acid (0.5-1.6) mmol/L Hemoglobin (13.0-17.5) gm/dL Sodium (137-145) mmol/L Creatinine (0.66-1.25) mg/dL Glucose (74-99) mg/dL POC Glucose (mg/dL) 146 H 135 H 126 H (70-110) mg/dL Calcium (8.4-10.2) mg/dL Ionized Calcium Jamila (4.5-5.3) mg/dL Magnesium (1.6-2.3) mg/dL AST (17-59) U/L Alkaline Phosphatase (38-126) U/L Total Protein (6.3-8.2) g/dL Albumin (3.5-5.0) g/dL Arterial Blood Glucose (75-99) mg/dL Crossmatch 10/16/24 10/16/24 10/16/24 Range/Units 04:45 04:45 04:48 WBC 11.44 H (4.50-10.00) 10*3/uL RBC 2.67 L (4.40-5.60) 10*6/uL Hgb 8.6 L (13.0-17.0) g/dL Hct 24.5 L (39.6-50.0) % MCH 32.2 H (27.0-32.0) pg Immature Gran # (0.00-0.04) 10*3/uL Neutrophils # 8.68 H (1.80-7.70) 10*3/uL Monocytes # 1.19 H (0.20-1.00) 10*3/uL Eosinophils # 0.01 L (0.04-0.35) 10*3/uL PT (10.0-12.5) sec INR (<1.2) ABG pH (7.35-7.45) ABG pCO2 (35-45) mmHg ABG pO2 (83-108) mmHg ABG HCO3 (21-25) mmol/L ABG Total CO2 (19-24) mmol/L ABG O2 Saturation (94-97) % ABG Hematocrit (34.0-46.0) % ABG Ionized Calcium (4.5-5.3) mg/dL ABG Glucose (75-99) mg/dL ABG Lactic Acid (0.5-1.6) mmol/L Hemoglobin (13.0-17.5) gm/dL Sodium 135 L (137-145) mmol/L Creatinine 0.60 L (0.66-1.25) mg/dL Glucose 115 H (74-99) mg/dL POC Glucose (mg/dL) 139 H (70-110) mg/dL Calcium 7.7 L (8.4-10.2) mg/dL Ionized Calcium Jamila 4.2 L (4.5-5.3) mg/dL Magnesium (1.6-2.3) mg/dL AST 73 H (17-59) U/L Alkaline Phosphatase 37 L (38-126) U/L Total Protein 5.0 L (6.3-8.2) g/dL Albumin 3.4 L (3.5-5.0) g/dL Arterial Blood Glucose (75-99) mg/dL Crossmatch 10/16/24 10/16/24 10/16/24 Range/Units 07:03 08:09 09:03 WBC (4.50-10.00) 10*3/uL RBC (4.40-5.60) 10*6/uL Hgb (13.0-17.0) g/dL Hct (39.6-50.0) % MCH (27.0-32.0) pg Immature Gran # (0.00-0.04) 10*3/uL Neutrophils # (1.80-7.70) 10*3/uL Monocytes # (0.20-1.00) 10*3/uL Eosinophils # (0.04-0.35) 10*3/uL PT (10.0-12.5) sec INR (<1.2) ABG pH (7.35-7.45) ABG pCO2 (35-45) mmHg ABG pO2 (83-108) mmHg ABG HCO3 (21-25) mmol/L ABG Total CO2 (19-24) mmol/L ABG O2 Saturation (94-97) % ABG Hematocrit (34.0-46.0) % ABG Ionized Calcium (4.5-5.3) mg/dL ABG Glucose (75-99) mg/dL ABG Lactic Acid (0.5-1.6) mmol/L Hemoglobin (13.0-17.5) gm/dL Sodium (137-145) mmol/L Creatinine (0.66-1.25) mg/dL Glucose (74-99) mg/dL POC Glucose (mg/dL) 150 H 145 H 130 H (70-110) mg/dL Calcium (8.4-10.2) mg/dL Ionized Calcium Jamila (4.5-5.3) mg/dL Magnesium (1.6-2.3) mg/dL AST (17-59) U/L Alkaline Phosphatase (38-126) U/L Total Protein (6.3-8.2) g/dL Albumin (3.5-5.0) g/dL Arterial Blood Glucose (75-99) mg/dL Crossmatch 10/16/24 Range/Units 10:18 WBC (4.50-10.00) 10*3/uL RBC (4.40-5.60) 10*6/uL Hgb (13.0-17.0) g/dL Hct (39.6-50.0) % MCH (27.0-32.0) pg Immature Gran # (0.00-0.04) 10*3/uL Neutrophils # (1.80-7.70) 10*3/uL Monocytes # (0.20-1.00) 10*3/uL Eosinophils # (0.04-0.35) 10*3/uL PT (10.0-12.5) sec INR (<1.2) ABG pH (7.35-7.45) ABG pCO2 (35-45) mmHg ABG pO2 (83-108) mmHg ABG HCO3 (21-25) mmol/L ABG Total CO2 (19-24) mmol/L ABG O2 Saturation (94-97) % ABG Hematocrit (34.0-46.0) % ABG Ionized Calcium (4.5-5.3) mg/dL ABG Glucose (75-99) mg/dL ABG Lactic Acid (0.5-1.6) mmol/L Hemoglobin (13.0-17.5) gm/dL Sodium (137-145) mmol/L Creatinine (0.66-1.25) mg/dL Glucose (74-99) mg/dL POC Glucose (mg/dL) 157 H (70-110) mg/dL Calcium (8.4-10.2) mg/dL Ionized Calcium Jamila (4.5-5.3) mg/dL Magnesium (1.6-2.3) mg/dL AST (17-59) U/L Alkaline Phosphatase (38-126) U/L Total Protein (6.3-8.2) g/dL Albumin (3.5-5.0) g/dL Arterial Blood Glucose (75-99) mg/dL Crossmatch Microbiology - Last 24 Hours (Table) 10/13/24 19:30 Nasal Screen MRSA/MSSA - Final Nasal Swab
[2024-10-16 12:06] LABS: Glucose,Whole Blood 190 mg/dL (70-110)
[2024-10-16 12:36] VITALS: BMI 30.5
[2024-10-16] MEDS: amLODIPine 2.5 MG TAB PO SCH (12:53)
[2024-10-16 13:29] LABS: Glucose,Whole Blood 198 mg/dL (70-110)
[2024-10-16 15:01] LABS: Glucose,Whole Blood 140 mg/dL (70-110)
--- NOTE | 2024-10-16 15:30 | P.PN ---
Subjective Progress Note Date: 10/16/24 On 10/15/2024, the patient is being seen immediately following his cardiac surgery. The patient had surgery by Dr. Arvizu and the patient underwent four- vessel bypass surgery including MENDEZ to LAD, radial to OM, SVG to PDA and diagonal. The patient was seen immediately in the ICU following his arrival and the patient was calm and comfortable on propofol. The patient was on assist- control mode of mechanical ventilation at rate of 12, tidal volume of 500, FiO2 of 100% with a PEEP of 5. The pH was 7.28 with a PCO2 of 54 and PO2 of 394. The patient had 2 mediastinal chest tubes and a single left pleural chest tube. Chest x-ray shows no acute abnormalities. Tubes and lines are all in place and the patient has minimal output through the chest tube and there is no evidence of any air leak or pneumothorax. Hemodynamically, the patient has a Woodford-Teresa catheter in place. Cardiac output is at 5.1 with an index of 2.5. Cardiac rhythm is sinus. The patient is currently on amiodarone at 1 mg/min and nitroglycerin drip at 5 mcg/min. Urine output is adequate. There was a close at 20 with a hemoglobin 10.3 and the platelet count of 164. The sodium is at 137, potassium is at 4.1, BUN is 10 with a creatinine of 0.6. LFTs are normal at this point. Cardiac rhythm is sinus. No other significant events since his arrival to the intensive care unit. On 10/16/2024, the patient is being seen for a follow-up. The patient is currently postop day #1. The patient is doing very well. No significant respite difficulties. He is currently on room air oxygen. Hemodynamically stable. No fever. No chills. No cardiac arrhythmias and the patient's cardiac rhythm is sinus. The patient is currently off nitroglycerin drip. Amiodarone will be switched to oral. Woodford-Teresa catheter still in place and the patient's PA pressures are 34/12 with a cardiac output of 7.2 and index of 3.0. Insulin drip is still running at 1 unit an hour. Output from the chest tubes have been noted. The patient has a total of 750 cc of output since surgery from the mediastinal tube and 400 cc from the left lower chest tube. Tubes will be kept in place. No evidence of pneumothorax on today's chest x-ray. The patient has a backup pacemaker, VVI mode at rate of 50. Awake alert and communicating. Denies having any specific complaints. Blood work from today shows a WBC count of 11.4, hemoglobin of 8.6 and a platelet count of 160. Sodium is at 135, BUN is 9 with a creatinine of 0.6. LFTs are normal. No other significant events otherwise for now. No focal neurological deficits. Objective - Vital Signs Vital signs: Vital Signs Temp 99.0 F 10/16/24 08:00 Pulse 72 10/16/24 08:00 Resp 27 H 10/16/24 08:00 BP 113/71 10/16/24 08:00 Pulse Ox 94 L 10/16/24 08:00 FiO2 50 10/15/24 16:00 Intake & Output 10/15/24 10/16/24 10/16/24 18:59 06:59 18:59 Intake Total 9990.054 1136.754 89 Output Total 1940 1440 130 Balance -766.236 416.754 -41 Weight 93.8 kg Intake: IV 1079 1679 89 ACETAMINOPHEN IV (For NPO 100 100 ) 1,000 mg In Empty Bag 1 bag @ 400 mls/hr IVPB Q6HR ROLANDO Rx#:[id number] Albumin Human 5% 250 ml 500 750 In Empty Bag 1 bag @ 250 mls/hr IVPB Q1HR PRN Rx#: [id number] CO/CI 130 130 30 Pressure 45 99 9 Sodium Chloride 0.9% 1, 250 550 50 000 ml @ 20 mls/hr IV . Q24H ROLANDO Rx#:[id number] ceFAZolin 2 gm In Sodium 50 50 Chloride 0.9% 50 ml @ 100 mls/hr IVPB ONCE ONE Rx# :[id number] Intake, IV Titration 94.764 77.754 Amount Clevidipine Butyrate 25 18.200 mg In Empty Bag 1 bag @ 1 MG/HR 2 mls/hr IV .Q24H PRN Rx#:[id number] Dexmedetomidine/0.9% NaCl 41.146 44.976 (Pmx) 400 mcg In Empty Bag 1 bag @ Titrate IV . Q0M ROLANDO Rx#:[id number] Insulin Regular 100 unit 4.032 11.094 In Sodium Chloride 0.9% 100 ml @ Per Protocol IV .Q0M ROLANDO Rx#:[id number] Nitroglycerin-D5w Pmx 50 9.8 mg In Dextrose/Water 1 250ml.bag @ 5 MCG/MIN 1.5 mls/hr IV .Q24H ROLANDO Rx#: [id number] Norepinephrine 8 mg In 11.884 Sodium Chloride 0.9% 250 ml @ 0.03 MCG/KG/MIN 5. 033 mls/hr IV .Q24H ROALNDO Rx#:[id number] propofoL 1,000 mg In 31.386 Empty Bag 1 bag @ Titrate IV .Q0M ROLANDO Rx#: [id number] Oral 100 Output: Chest Tube Drainage 400 700 90 Left Pleural 30 370 10 Mediastinal x2 370 330 80 Urine 1190 740 40 Estimated Blood Loss 350 Other: Voiding Method Indwelling Catheter Indwelling Catheter ABP, PAP, CO, CI - Last Documented Arterial Blood Pressure 145/59 Pulmonary Artery Pressure 26/9 Cardiac Output 7.2 Cardiac Index 3.5 - Exam CONSTITUTIONAL: Appears mostly comfortable, cooperative, no acute distress RESPIRATORY: Lungs sounds diminished in the bases bilaterally. Respirations even, nonlabored. Currently on room air with oxygen saturation 94%. Able to achieve 750 mL on incentive spirometry. Strong cough. CARDIOVASCULAR: S1, S2 present. Regular rate and rhythm, sinus rhythm on telemetry. Sternum stable. Palpable peripheral pulses bilaterally. No edema present. No calf pain or tenderness noted. Heart hugger in place with patient demonstrating appropriate use. Antiembolism stockings, SCDs present. GASTROINTESTINAL: Abdomen soft, nontender, nondistended. Hypoactive bowel sounds present 4 quadrants. Tolerating minimal clear liquids. Positive flatus GENITOURINARY: Chakraborty present draining clear, yellow urine. Output overnight 3 0-100 mL per hour INTEGUMENTARY: Skin is warm and dry with evidence of good perfusion. Anterior chest incision well approximated and covered with dry intact dressing. Left radial artery harvest site as well as left lower extremity EVH site well approximated without redness or drainage. NEUROLOGIC: Cranial nerves II through XII intact MUSKULOSKELETAL: Able to move all extremities, strength equal bilaterally, gait normal PSYCHIATRIC: Alert and oriented to person place and time, appropriate affect, intact judgment and insight INVASIVE LINES AND TUBES: Mediastinal/left pleural chest tubes present and connected to wall suction, no air leaks present. Mediastinal tube with 210 mL serosanguineous drainage overnight, 750 mL since surgery. Left pleural chest tube with 370 mL serosanguineous drainage overnight, 400 mL since surgery. A/V epicardial pacemaker wires present, connected to generator, VVI mode with backup rate 50 bpm. Right internal jugular Woodford/Cordis, right radial arterial line present. Last CO/CI 7.2/3.5, PA 26/8, CVP 4. - Labs CBC & Chem 7: 10/16/24 04:45 10/16/24 04:45 Labs: Abnormal Lab Results - Last 24 Hours (Table) 10/14/24 10/15/24 10/15/24 Range/Units 15:41 08:40 09:30 WBC (4.50-10.00) 10*3/uL RBC (4.40-5.60) 10*6/uL Hgb (13.0-17.0) g/dL Hct (39.6-50.0) % MCH (27.0-32.0) pg Immature Gran # (0.00-0.04) 10*3/uL Neutrophils # (1.80-7.70) 10*3/uL Monocytes # (0.20-1.00) 10*3/uL Eosinophils # (0.04-0.35) 10*3/uL PT (10.0-12.5) sec INR (<1.2) ABG pH (7.35-7.45) ABG pCO2 (35-45) mmHg ABG pO2 408 H (83-108) mmHg ABG HCO3 (21-25) mmol/L ABG Total CO2 (19-24) mmol/L ABG O2 Saturation 99.2 H 99.2 H (94-97) % ABG Hematocrit (34.0-46.0) % ABG Ionized Calcium (4.5-5.3) mg/dL ABG Glucose 114 H (75-99) mg/dL ABG Lactic Acid (0.5-1.6) mmol/L Hemoglobin 12.0 L 11.9 L (13.0-17.5) gm/dL Sodium (137-145) mmol/L Creatinine (0.66-1.25) mg/dL Glucose (74-99) mg/dL POC Glucose (mg/dL) (70-110) mg/dL Calcium (8.4-10.2) mg/dL Ionized Calcium Jamila (4.5-5.3) mg/dL Magnesium (1.6-2.3) mg/dL AST (17-59) U/L Alkaline Phosphatase (38-126) U/L Total Protein (6.3-8.2) g/dL Albumin (3.5-5.0) g/dL Arterial Blood Glucose 114 H (75-99) mg/dL Crossmatch See Detail 10/15/24 10/15/24 10/15/24 Range/Units 11:25 12:45 13:10 WBC (4.50-10.00) 10*3/uL RBC (4.40-5.60) 10*6/uL Hgb (13.0-17.0) g/dL Hct (39.6-50.0) % MCH (27.0-32.0) pg Immature Gran # (0.00-0.04) 10*3/uL Neutrophils # (1.80-7.70) 10*3/uL Monocytes # (0.20-1.00) 10*3/uL Eosinophils # (0.04-0.35) 10*3/uL PT (10.0-12.5) sec INR (<1.2) ABG pH 7.31 L (7.35-7.45) ABG pCO2 50 H (35-45) mmHg ABG pO2 >420 H 401 H 380 H (83-108) mmHg ABG HCO3 (21-25) mmol/L ABG Total CO2 (19-24) mmol/L ABG O2 Saturation >99.4 H 99.3 H >99.4 H (94-97) % ABG Hematocrit 26 L 26 L 29 L (34.0-46.0) % ABG Ionized Calcium 4.1 L 4.3 L 4.4 L (4.5-5.3) mg/dL ABG Glucose 154 H 144 H 124 H (75-99) mg/dL ABG Lactic Acid 3.1 H* 2.3 H* 1.9 H (0.5-1.6) mmol/L Hemoglobin 8.5 L 8.6 L 9.3 L (13.0-17.5) gm/dL Sodium (137-145) mmol/L Creatinine (0.66-1.25) mg/dL Glucose (74-99) mg/dL POC Glucose (mg/dL) (70-110) mg/dL Calcium (8.4-10.2) mg/dL Ionized Calcium Jamila (4.5-5.3) mg/dL Magnesium (1.6-2.3) mg/dL AST (17-59) U/L Alkaline Phosphatase (38-126) U/L Total Protein (6.3-8.2) g/dL Albumin (3.5-5.0) g/dL Arterial Blood Glucose 154 H 144 H 124 H (75-99) mg/dL Crossmatch 10/15/24 10/15/24 10/15/24 Range/Units 13:50 13:50 13:50 WBC 20.04 H (4.50-10.00) 10*3/uL RBC 3.10 L (4.40-5.60) 10*6/uL Hgb 10.3 L D (13.0-17.0) g/dL Hct 28.4 L (39.6-50.0) % MCH 33.2 H (27.0-32.0) pg Immature Gran # 0.19 H (0.00-0.04) 10*3/uL Neutrophils # 15.76 H (1.80-7.70) 10*3/uL Monocytes # 1.33 H (0.20-1.00) 10*3/uL Eosinophils # (0.04-0.35) 10*3/uL PT 12.8 H (10.0-12.5) sec INR 1.2 H (<1.2) ABG pH (7.35-7.45) ABG pCO2 (35-45) mmHg ABG pO2 (83-108) mmHg ABG HCO3 (21-25) mmol/L ABG Total CO2 (19-24) mmol/L ABG O2 Saturation (94-97) % ABG Hematocrit (34.0-46.0) % ABG Ionized Calcium (4.5-5.3) mg/dL ABG Glucose (75-99) mg/dL ABG Lactic Acid (0.5-1.6) mmol/L Hemoglobin (13.0-17.5) gm/dL Sodium (137-145) mmol/L Creatinine (0.66-1.25) mg/dL Glucose 102 H (74-99) mg/dL POC Glucose (mg/dL) (70-110) mg/dL Calcium 7.7 L (8.4-10.2) mg/dL Ionized Calcium Jamila (4.5-5.3) mg/dL Magnesium 2.4 H (1.6-2.3) mg/dL AST (17-59) U/L Alkaline Phosphatase (38-126) U/L Total Protein 4.2 L (6.3-8.2) g/dL Albumin 2.5 L (3.5-5.0) g/dL Arterial Blood Glucose (75-99) mg/dL Crossmatch 10/15/24 10/15/24 10/15/24 Range/Units 14:11 14:55 16:03 WBC (4.50-10.00) 10*3/uL RBC (4.40-5.60) 10*6/uL Hgb (13.0-17.0) g/dL Hct (39.6-50.0) % MCH (27.0-32.0) pg Immature Gran # (0.00-0.04) 10*3/uL Neutrophils # (1.80-7.70) 10*3/uL Monocytes # (0.20-1.00) 10*3/uL Eosinophils # (0.04-0.35) 10*3/uL PT (10.0-12.5) sec INR (<1.2) ABG pH 7.29 L (7.35-7.45) ABG pCO2 54 H (35-45) mmHg ABG pO2 394 H (83-108) mmHg ABG HCO3 26 H (21-25) mmol/L ABG Total CO2 28 H (19-24) mmol/L ABG O2 Saturation >100.0 H (94-97) % ABG Hematocrit (34.0-46.0) % ABG Ionized Calcium (4.5-5.3) mg/dL ABG Glucose (75-99) mg/dL ABG Lactic Acid (0.5-1.6) mmol/L Hemoglobin 10.4 L (13.0-17.5) gm/dL Sodium (137-145) mmol/L Creatinine (0.66-1.25) mg/dL Glucose (74-99) mg/dL POC Glucose (mg/dL) 118 H 167 H (70-110) mg/dL Calcium (8.4-10.2) mg/dL Ionized Calcium Jamila (4.5-5.3) mg/dL Magnesium (1.6-2.3) mg/dL AST (17-59) U/L Alkaline Phosphatase (38-126) U/L Total Protein (6.3-8.2) g/dL Albumin (3.5-5.0) g/dL Arterial Blood Glucose (75-99) mg/dL Crossmatch 10/15/24 10/15/24 10/15/24 Range/Units 17:00 17:01 18:05 WBC 16.82 H (4.50-10.00) 10*3/uL RBC 3.24 L (4.40-5.60) 10*6/uL Hgb 10.7 L (13.0-17.0) g/dL Hct 29.4 L (39.6-50.0) % MCH 33.0 H (27.0-32.0) pg Immature Gran # 0.09 H (0.00-0.04) 10*3/uL Neutrophils # 14.15 H (1.80-7.70) 10*3/uL Monocytes # (0.20-1.00) 10*3/uL Eosinophils # 0.01 L (0.04-0.35) 10*3/uL PT (10.0-12.5) sec INR (<1.2) ABG pH (7.35-7.45) ABG pCO2 (35-45) mmHg ABG pO2 (83-108) mmHg ABG HCO3 (21-25) mmol/L ABG Total CO2 (19-24) mmol/L ABG O2 Saturation (94-97) % ABG Hematocrit (34.0-46.0) % ABG Ionized Calcium (4.5-5.3) mg/dL ABG Glucose (75-99) mg/dL ABG Lactic Acid (0.5-1.6) mmol/L Hemoglobin (13.0-17.5) gm/dL Sodium (137-145) mmol/L Creatinine (0.66-1.25) mg/dL Glucose (74-99) mg/dL POC Glucose (mg/dL) 152 H 132 H (70-110) mg/dL Calcium (8.4-10.2) mg/dL Ionized Calcium Jamila (4.5-5.3) mg/dL Magnesium (1.6-2.3) mg/dL AST (17-59) U/L Alkaline Phosphatase (38-126) U/L Total Protein (6.3-8.2) g/dL Albumin (3.5-5.0) g/dL Arterial Blood Glucose (75-99) mg/dL Crossmatch 10/15/24 10/15/24 10/15/24 Range/Units 18:56 19:55 19:56 WBC 13.80 H (4.50-10.00) 10*3/uL RBC 2.82 L (4.40-5.60) 10*6/uL Hgb 9.2 L D (13.0-17.0) g/dL Hct 25.6 L (39.6-50.0) % MCH 32.6 H (27.0-32.0) pg Immature Gran # 0.06 H (0.00-0.04) 10*3/uL Neutrophils # 11.55 H (1.80-7.70) 10*3/uL Monocytes # 1.02 H (0.20-1.00) 10*3/uL Eosinophils # 0.00 L (0.04-0.35) 10*3/uL PT (10.0-12.5) sec INR (<1.2) ABG pH (7.35-7.45) ABG pCO2 (35-45) mmHg ABG pO2 (83-108) mmHg ABG HCO3 (21-25) mmol/L ABG Total CO2 (19-24) mmol/L ABG O2 Saturation (94-97) % ABG Hematocrit (34.0-46.0) % ABG Ionized Calcium (4.5-5.3) mg/dL ABG Glucose (75-99) mg/dL ABG Lactic Acid (0.5-1.6) mmol/L Hemoglobin (13.0-17.5) gm/dL Sodium (137-145) mmol/L Creatinine (0.66-1.25) mg/dL Glucose (74-99) mg/dL POC Glucose (mg/dL) 113 H 163 H (70-110) mg/dL Calcium (8.4-10.2) mg/dL Ionized Calcium Jamila (4.5-5.3) mg/dL Magnesium (1.6-2.3) mg/dL AST (17-59) U/L Alkaline Phosphatase (38-126) U/L Total Protein (6.3-8.2) g/dL Albumin (3.5-5.0) g/dL Arterial Blood Glucose (75-99) mg/dL Crossmatch 10/15/24 10/15/24 10/16/24 Range/Units 21:15 23:03 00:18 WBC (4.50-10.00) 10*3/uL RBC (4.40-5.60) 10*6/uL Hgb (13.0-17.0) g/dL Hct (39.6-50.0) % MCH (27.0-32.0) pg Immature Gran # (0.00-0.04) 10*3/uL Neutrophils # (1.80-7.70) 10*3/uL Monocytes # (0.20-1.00) 10*3/uL Eosinophils # (0.04-0.35) 10*3/uL PT (10.0-12.5) sec INR (<1.2) ABG pH (7.35-7.45) ABG pCO2 (35-45) mmHg ABG pO2 (83-108) mmHg ABG HCO3 (21-25) mmol/L ABG Total CO2 (19-24) mmol/L ABG O2 Saturation (94-97) % ABG Hematocrit (34.0-46.0) % ABG Ionized Calcium (4.5-5.3) mg/dL ABG Glucose (75-99) mg/dL ABG Lactic Acid (0.5-1.6) mmol/L Hemoglobin (13.0-17.5) gm/dL Sodium (137-145) mmol/L Creatinine (0.66-1.25) mg/dL Glucose (74-99) mg/dL POC Glucose (mg/dL) 154 H 136 H 152 H (70-110) mg/dL Calcium (8.4-10.2) mg/dL Ionized Calcium Jamila (4.5-5.3) mg/dL Magnesium (1.6-2.3) mg/dL AST (17-59) U/L Alkaline Phosphatase (38-126) U/L Total Protein (6.3-8.2) g/dL Albumin (3.5-5.0) g/dL Arterial Blood Glucose (75-99) mg/dL Crossmatch 10/16/24 10/16/24 10/16/24 Range/Units 01:12 01:58 03:12 WBC (4.50-10.00) 10*3/uL RBC (4.40-5.60) 10*6/uL Hgb (13.0-17.0) g/dL Hct (39.6-50.0) % MCH (27.0-32.0) pg Immature Gran # (0.00-0.04) 10*3/uL Neutrophils # (1.80-7.70) 10*3/uL Monocytes # (0.20-1.00) 10*3/uL Eosinophils # (0.04-0.35) 10*3/uL PT (10.0-12.5) sec INR (<1.2) ABG pH (7.35-7.45) ABG pCO2 (35-45) mmHg ABG pO2 (83-108) mmHg ABG HCO3 (21-25) mmol/L ABG Total CO2 (19-24) mmol/L ABG O2 Saturation (94-97) % ABG Hematocrit (34.0-46.0) % ABG Ionized Calcium (4.5-5.3) mg/dL ABG Glucose (75-99) mg/dL ABG Lactic Acid (0.5-1.6) mmol/L Hemoglobin (13.0-17.5) gm/dL Sodium (137-145) mmol/L Creatinine (0.66-1.25) mg/dL Glucose (74-99) mg/dL POC Glucose (mg/dL) 146 H 135 H 126 H (70-110) mg/dL Calcium (8.4-10.2) mg/dL Ionized Calcium Jamila (4.5-5.3) mg/dL Magnesium (1.6-2.3) mg/dL AST (17-59) U/L Alkaline Phosphatase (38-126) U/L Total Protein (6.3-8.2) g/dL Albumin (3.5-5.0) g/dL Arterial Blood Glucose (75-99) mg/dL Crossmatch 10/16/24 10/16/24 10/16/24 Range/Units 04:45 04:45 04:48 WBC 11.44 H (4.50-10.00) 10*3/uL RBC 2.67 L (4.40-5.60) 10*6/uL Hgb 8.6 L (13.0-17.0) g/dL Hct 24.5 L (39.6-50.0) % MCH 32.2 H (27.0-32.0) pg Immature Gran # (0.00-0.04) 10*3/uL Neutrophils # 8.68 H (1.80-7.70) 10*3/uL Monocytes # 1.19 H (0.20-1.00) 10*3/uL Eosinophils # 0.01 L (0.04-0.35) 10*3/uL PT (10.0-12.5) sec INR (<1.2) ABG pH (7.35-7.45) ABG pCO2 (35-45) mmHg ABG pO2 (83-108) mmHg ABG HCO3 (21-25) mmol/L ABG Total CO2 (19-24) mmol/L ABG O2 Saturation (94-97) % ABG Hematocrit (34.0-46.0) % ABG Ionized Calcium (4.5-5.3) mg/dL ABG Glucose (75-99) mg/dL ABG Lactic Acid (0.5-1.6) mmol/L Hemoglobin (13.0-17.5) gm/dL Sodium 135 L (137-145) mmol/L Creatinine 0.60 L (0.66-1.25) mg/dL Glucose 115 H (74-99) mg/dL POC Glucose (mg/dL) 139 H (70-110) mg/dL Calcium 7.7 L (8.4-10.2) mg/dL Ionized Calcium Jamila 4.2 L (4.5-5.3) mg/dL Magnesium (1.6-2.3) mg/dL AST 73 H (17-59) U/L Alkaline Phosphatase 37 L (38-126) U/L Total Protein 5.0 L (6.3-8.2) g/dL Albumin 3.4 L (3.5-5.0) g/dL Arterial Blood Glucose (75-99) mg/dL Crossmatch 10/16/24 10/16/24 10/16/24 Range/Units 07:03 08:09 09:03 WBC (4.50-10.00) 10*3/uL RBC (4.40-5.60) 10*6/uL Hgb (13.0-17.0) g/dL Hct (39.6-50.0) % MCH (27.0-32.0) pg Immature Gran # (0.00-0.04) 10*3/uL Neutrophils # (1.80-7.70) 10*3/uL Monocytes # (0.20-1.00) 10*3/uL Eosinophils # (0.04-0.35) 10*3/uL PT (10.0-12.5) sec INR (<1.2) ABG pH (7.35-7.45) ABG pCO2 (35-45) mmHg ABG pO2 (83-108) mmHg ABG HCO3 (21-25) mmol/L ABG Total CO2 (19-24) mmol/L ABG O2 Saturation (94-97) % ABG Hematocrit (34.0-46.0) % ABG Ionized Calcium (4.5-5.3) mg/dL ABG Glucose (75-99) mg/dL ABG Lactic Acid (0.5-1.6) mmol/L Hemoglobin (13.0-17.5) gm/dL Sodium (137-145) mmol/L Creatinine (0.66-1.25) mg/dL Glucose (74-99) mg/dL POC Glucose (mg/dL) 150 H 145 H 130 H (70-110) mg/dL Calcium (8.4-10.2) mg/dL Ionized Calcium Jamila (4.5-5.3) mg/dL Magnesium (1.6-2.3) mg/dL AST (17-59) U/L Alkaline Phosphatase (38-126) U/L Total Protein (6.3-8.2) g/dL Albumin (3.5-5.0) g/dL Arterial Blood Glucose (75-99) mg/dL Crossmatch Microbiology - Last 24 Hours (Table) 10/13/24 19:30 Nasal Screen MRSA/MSSA - Final Nasal Swab Assessment and Plan Plan: Coronary artery disease post acute non-ST segment elevation myocardial infarction. 2D echocardiogram which demonstrated a left ventricular ejection fraction to be estimated at 55 to 60%, trace mitral valve regurgitation, trace to mild aortic valve regurgitation, trace tricuspid valve regurgitation, trace pulmonic valve regurgitation, and a normal size aortic root and proximal ascending aorta. The cardiac catheterization which was completed and revealed a 90% stenosis to his mid left anterior descending coronary artery, and 80 to 90% stenosis to his ostial diagonal 2, a 50 to 60% stenosis to his proximal left circumflex coronary artery and a 70% stenosis to his mid right coronary artery. Coronary artery bypass surgery with four-vessel bypass with MENDEZ to LAD, radial to and SVG to PDA and diagonal. The patient is hemodynamically stable. Adequate cardiac output and index. Adequate urine output. Cardiac rhythm is sinus. The patient is postop day #1. The patient is hemodynamically stable. Cardiac rhythm is sinus. Postthoracotomy, extubated and the patient is currently on room air oxygen. Using incentive spirometer. Mediastinal chest tubes in the left lower chest tubes are in place. Output has been noted. Chest x-ray shows some atelectatic change lung base bilaterally. No significant respiratory distress. Hypertension Chronic marijuana smoking Former smoker the patient quit smoking 15 years ago Chronic anxiety Poor dentition Plan Continues incentive spirometer Patient is on room air oxygen Monitor output from the chest tubes Insulin drip at 1 units an hour for blood sugar control Oral amiodarone Nitroglycerin drip has been discontinued Continue aspirin and Plavix Norvasc 2.5 mg p.o. daily for blood pressure control in addition to metoprolol 12.5 mg p.o. twice daily. Lipitor 40 mg p.o. daily. Increase mobility Keep in ICU for another 24 hours. The chest tube will be kept in place for another 24 hours.
[2024-10-16 16:16] LABS: Glucose,Whole Blood 132 mg/dL (70-110)
[2024-10-16 16:38] LABS: African American GFR (CKD) >90 (>60 ml/min/1.73 sqM); Anion Gap 8 mmol/L; Blood Urea Nitrogen 6 mg/dL (9-20); Calcium 7.9 mg/dL (8.4-10.2); Carbon Dioxide 23 mmol/L (22-30); Chloride 104 mmol/L (98-107); Glucose 122 mg/dL (74-99); Non-African American GFR(CKD) >90 (>60 ml/min/1.73 sqM); Potassium 3.6 mmol/L (3.5-5.1); Sodium 135 mmol/L (137-145)
[2024-10-16 17:10] LABS: Glucose,Whole Blood 116 mg/dL (70-110)
[2024-10-16 19:07] LABS: Glucose,Whole Blood 151 mg/dL (70-110)
[2024-10-16] MEDS: METOPROLOL TARTRATE 25 MG TAB PO SCH (20:16)
[2024-10-16 21:10] LABS: Glucose,Whole Blood 119 mg/dL (70-110)
[2024-10-16 21:44] LABS: Glucose,Whole Blood 116 mg/dL (70-110)
[2024-10-16 23:04] LABS: Glucose,Whole Blood 108 mg/dL (70-110)
[2024-10-17 01:03] LABS: Glucose,Whole Blood 127 mg/dL (70-110)
[2024-10-17 02:21] LABS: Glucose,Whole Blood 120 mg/dL (70-110)
[2024-10-17] MEDS: POTASSIUM CHLORIDE ER 20 MEQ TAB.ER PO SCH (03:02)
[2024-10-17 03:15] LABS: Glucose,Whole Blood 106 mg/dL (70-110)
[2024-10-17 04:35] LABS: Basophils # (A) 0.04 10*3/uL (0.00-0.10); Basophils % (A) 0.2 %; Eosinophils # (A) 0.02 10*3/uL (0.04-0.35); Eosinophils % (A) 0.1 %; HCT 24.0 % (39.6-50.0); HGB 8.6 g/dL (13.0-17.0); Lymphocytes # (A) 2.54 10*3/uL (0.90-5.00); Lymphocytes % (A) 15.9 %; MCH 33.5 pg (27.0-32.0); MCHC 35.8 g/dL (32.0-37.0); MCV 93.4 fL (80.0-97.0); Monocytes # (A) 2.11 10*3/uL (0.20-1.00); Monocytes % (A) 13.2 %; Neutrophils # (A) 11.21 10*3/uL (1.80-7.70); Neutrophils % (A) 70.0 %; Platelet Count 171 10*3/uL (140-440); RBC 2.57 10*6/uL (4.40-5.60); RDW 12.6 % (11.5-14.5); WBC 16.01 10*3/uL (4.50-10.00)
[2024-10-17 04:52] LABS: ALT 25 U/L (4-49); AST 69 U/L (17-59); African American GFR (CKD) >90 (>60 ml/min/1.73 sqM); Albumin 3.3 g/dL (3.5-5.0); Alkaline Phosphatase 46 U/L (38-126); Anion Gap 7 mmol/L; Blood Urea Nitrogen 6 mg/dL (9-20); Calcium 8.0 mg/dL (8.4-10.2); Carbon Dioxide 22 mmol/L (22-30); Chloride 103 mmol/L (98-107); Glucose 109 mg/dL (74-99); Non-African American GFR(CKD) >90 (>60 ml/min/1.73 sqM); Potassium 4.2 mmol/L (3.5-5.1); Sodium 132 mmol/L (137-145); Total Protein 5.1 g/dL (6.3-8.2)
[2024-10-17 05:04] LABS: Glucose,Whole Blood 130 mg/dL (70-110)
[2024-10-17] MEDS: PANTOPRAZOLE 40 MG TABLET PO SCH (06:24)
[2024-10-17 06:28] LABS: Glucose,Whole Blood 129 mg/dL (70-110)
--- NOTE | 2024-10-17 07:08 | XR ---
EXAMINATION TYPE: XR chest 1V portable DATE OF EXAM: 10/17/2024 5:13 AM COMPARISON: Chest radiograph from one day prior. CLINICAL INDICATION: Male, 48 years old with history of Post Operative Cardiac Surgery; [facility] TECHNIQUE: XR chest 1V portable Frontal view of the chest. FINDINGS: Lungs/Pleura: There is no evidence of pleural effusion, focal consolidation, or pneumothorax. Pulmonary vascularity: Unremarkable. Heart/mediastinum: Cardiomediastinal silhouette is unremarkable. Musculoskeletal: No acute osseous pathology. Midline sternotomy wires are noted. Other findings: None Lines/Tubes: Left thoracotomy tube is present without evidence of pneumothorax. There is a Tafton-Teresa catheter sheath in place. Drainage tubes with tips projecting over the mediastinum. IMPRESSION: Postsurgical changes lines and tubes as above. [facility], , 10/17/2024 7:05 AM
[2024-10-17] MEDS ORDERED: fentaNYL (PF) 50 MCG/ML 2 ML AMP IVP PRN (07:09)
--- NOTE | 2024-10-17 07:37 | P.PN ---
Subjective Progress Note Date: 10/17/24 Principal diagnosis: Multivessel coronary artery disease, non-ST elevated myocardial infarction this admission. Previous medical history of hypertension currently not taking any a ntihypertensives outpatient, poor dentition, family history of early onset coronary artery disease, anxiety, current chewing tobacco use, cessation of cigarette smoking 15 years ago, and daily marijuana use smoking 8-10 joints daily POD#2 coronary artery bypass graft x 4 with left internal mammary artery to left anterior descending artery, RADIAL to obtuse marginal branch, saphenous vein graft to posterior descending artery, saphenous vein graft to DIAGONAL, left atrial appendage occlusion 35 mm Atriclip, medistim graft flow measurement, endoscopic harvest left greater saphenous vein, endoscopic harvest left radial artery Postoperative acute blood loss anemia, expected given hemodilution and cardiopulmonary bypass pump The patient was seen and examined this morning sitting up in recliner in the intensive care unit in no acute distress. Remains in sinus rhythm, hemodynamically stable. Currently on room air with oxygen saturation in the mid 90s, able to achieve 750 mL on incentive spirometry. He does complain of expected postsurgical pain controlled with current medication regimen, denies shortness of breath. Right internal jugular cordis, right radial arterial line, mediastinal/left pleural chest tubes all remain. Patient has been ambulatory multiple times in the hallway already with standby assist. States he feels much better today. No other new concerns. Objective - Vital Signs Vital signs: Vital Signs Temp 98.3 F 10/16/24 20:00 Pulse 98 10/17/24 06:00 Resp 23 10/17/24 06:00 BP 135/77 10/17/24 06:00 Pulse Ox 95 10/17/24 06:00 FiO2 21 10/16/24 09:59 Intake & Output 10/16/24 10/17/24 10/17/24 18:59 06:59 18:59 Intake Total 921.461 626.499 Output Total 1155 1370 Balance -233.539 -743.501 Weight 93.8 kg 93.9 kg Intake: IV 684 598 CO/CI 30 Pressure 84 78 Sodium Chloride 0.9% 1, 520 520 000 ml @ 20 mls/hr IV . Q24H [facility] Rx#:[id number] ceFAZolin 2 gm In Sodium 50 Chloride 0.9% 50 ml @ 100 mls/hr IVPB ONCE ONE Rx# :[id number] Intake, IV Titration 237.461 28.499 Amount Insulin Regular 100 unit 37.461 28.499 In Sodium Chloride 0.9% 100 ml @ Per Protocol IV .Q0M [facility] Rx#:[id number] Magnesium Sulfate-D5w Pmx 200 1 gm In Dextrose/Water 1 100ml.bag @ 100 mls/hr IVPB ONCE ONE Rx#: [id number] Output: Chest Tube Drainage 640 280 Left Pleural 420 220 Mediastinal x2 220 60 Urine 515 1090 Other: Voiding Method Indwelling Catheter Urinal ABP, PAP, CO, CI - Last Documented Arterial Blood Pressure 145/59 Pulmonary Artery Pressure 27/7 Cardiac Output 7.2 Cardiac Index 3.5 - Exam CONSTITUTIONAL: Appears comfortable, cooperative, no acute distress RESPIRATORY: Lungs sounds diminished in the bases bilaterally. Respirations even, nonlabored. Currently on room air with oxygen saturation 91%. Able to achieve 750 mL on incentive spirometry. Strong cough. CARDIOVASCULAR: S1, S2 present. Regular rate and rhythm, sinus rhythm to sinus tach on telemetry. Sternum stable. Palpable peripheral pulses bilaterally. No edema present. No calf pain or tenderness noted. Heart hugger in place with patient demonstrating appropriate use. Antiembolism stockings, SCDs present. GASTROINTESTINAL: Abdomen soft, nontender, nondistended. Active bowel sounds present 4 quadrants. Tolerating diet. Positive flatus GENITOURINARY: Chakraborty was discontinued yesterday per patient request, continues t o void, 490 mL overnight, 1605 mL in the last 24 hours INTEGUMENTARY: Skin is warm and dry with evidence of good perfusion. Anterior chest incision well approximated and covered with dry intact dressing. Left radial artery harvest site as well as left lower extremity EVH site well approximated without redness or drainage. NEUROLOGIC: Cranial nerves II through XII intact MUSKULOSKELETAL: Able to move all extremities, strength equal bilaterally, gait normal PSYCHIATRIC: Alert and oriented to person place and time, appropriate affect, intact judgment and insight INVASIVE LINES AND TUBES: Mediastinal/left pleural chest tubes present and connected to wall suction, no air leaks present. Mediastinal tube with 10 mL serosanguineous drainage overnight, 250 mL in the last 24 hours. Left pleural chest tube with 140 mL serosanguineous drainage overnight, 650 mL in the last 24 hours. A/V epicardial pacemaker wires present, connected to generator, VVI mode with backup rate 50 bpm. Right internal jugular cordis, right radial arterial line present. Last CVP 9. - Allied health notes Allied health notes reviewed: nursing - Labs CBC & Chem 7: 10/17/24 04:20 10/17/24 04:20 Labs: Abnormal Lab Results - Last 24 Hours (Table) 10/16/24 10/16/24 10/16/24 Range/Units 08:09 09:03 10:18 WBC (4.50-10.00) 10*3/uL RBC (4.40-5.60) 10*6/uL Hgb (13.0-17.0) g/dL Hct (39.6-50.0) % MCH (27.0-32.0) pg Immature Gran # (0.00-0.04) 10*3/uL Neutrophils # (1.80-7.70) 10*3/uL Monocytes # (0.20-1.00) 10*3/uL Eosinophils # (0.04-0.35) 10*3/uL Sodium (137-145) mmol/L BUN (9-20) mg/dL Creatinine (0.66-1.25) mg/dL Glucose (74-99) mg/dL POC Glucose (mg/dL) 145 H 130 H 157 H (70-110) mg/dL Calcium (8.4-10.2) mg/dL Ionized Calcium Jamila (4.5-5.3) mg/dL Total Bilirubin (0.2-1.3) mg/dL AST (17-59) U/L Total Protein (6.3-8.2) g/dL Albumin (3.5-5.0) g/dL 10/16/24 10/16/24 10/16/24 Range/Units 12:05 13:26 14:59 WBC (4.50-10.00) 10*3/uL RBC (4.40-5.60) 10*6/uL Hgb (13.0-17.0) g/dL Hct (39.6-50.0) % MCH (27.0-32.0) pg Immature Gran # (0.00-0.04) 10*3/uL Neutrophils # (1.80-7.70) 10*3/uL Monocytes # (0.20-1.00) 10*3/uL Eosinophils # (0.04-0.35) 10*3/uL Sodium (137-145) mmol/L BUN (9-20) mg/dL Creatinine (0.66-1.25) mg/dL Glucose (74-99) mg/dL POC Glucose (mg/dL) 190 H 198 H 140 H (70-110) mg/dL Calcium (8.4-10.2) mg/dL Ionized Calcium Jamila (4.5-5.3) mg/dL Total Bilirubin (0.2-1.3) mg/dL AST (17-59) U/L Total Protein (6.3-8.2) g/dL Albumin (3.5-5.0) g/dL 10/16/24 10/16/24 10/16/24 Range/Units 16:12 16:13 17:08 WBC (4.50-10.00) 10*3/uL RBC (4.40-5.60) 10*6/uL Hgb (13.0-17.0) g/dL Hct (39.6-50.0) % MCH (27.0-32.0) pg Immature Gran # (0.00-0.04) 10*3/uL Neutrophils # (1.80-7.70) 10*3/uL Monocytes # (0.20-1.00) 10*3/uL Eosinophils # (0.04-0.35) 10*3/uL Sodium 135 L (137-145) mmol/L BUN 6 L (9-20) mg/dL Creatinine (0.66-1.25) mg/dL Glucose 122 H (74-99) mg/dL POC Glucose (mg/dL) 132 H 116 H (70-110) mg/dL Calcium 7.9 L (8.4-10.2) mg/dL Ionized Calcium Jamila (4.5-5.3) mg/dL Total Bilirubin (0.2-1.3) mg/dL AST (17-59) U/L Total Protein (6.3-8.2) g/dL Albumin (3.5-5.0) g/dL 10/16/24 10/16/24 10/16/24 Range/Units 19:05 21:08 21:43 WBC (4.50-10.00) 10*3/uL RBC (4.40-5.60) 10*6/uL Hgb (13.0-17.0) g/dL Hct (39.6-50.0) % MCH (27.0-32.0) pg Immature Gran # (0.00-0.04) 10*3/uL Neutrophils # (1.80-7.70) 10*3/uL Monocytes # (0.20-1.00) 10*3/uL Eosinophils # (0.04-0.35) 10*3/uL Sodium (137-145) mmol/L BUN (9-20) mg/dL Creatinine (0.66-1.25) mg/dL Glucose (74-99) mg/dL POC Glucose (mg/dL) 151 H 119 H 116 H (70-110) mg/dL Calcium (8.4-10.2) mg/dL Ionized Calcium Jamila (4.5-5.3) mg/dL Total Bilirubin (0.2-1.3) mg/dL AST (17-59) U/L Total Protein (6.3-8.2) g/dL Albumin (3.5-5.0) g/dL 10/17/24 10/17/24 10/17/24 Range/Units 01:02 02:19 04:20 WBC 16.01 H (4.50-10.00) 10*3/uL RBC 2.57 L (4.40-5.60) 10*6/uL Hgb 8.6 L (13.0-17.0) g/dL Hct 24.0 L (39.6-50.0) % MCH 33.5 H (27.0-32.0) pg Immature Gran # 0.09 H (0.00-0.04) 10*3/uL Neutrophils # 11.21 H (1.80-7.70) 10*3/uL Monocytes # 2.11 H (0.20-1.00) 10*3/uL Eosinophils # 0.02 L (0.04-0.35) 10*3/uL Sodium (137-145) mmol/L BUN (9-20) mg/dL Creatinine (0.66-1.25) mg/dL Glucose (74-99) mg/dL POC Glucose (mg/dL) 127 H 120 H (70-110) mg/dL Calcium (8.4-10.2) mg/dL Ionized Calcium Jamila (4.5-5.3) mg/dL Total Bilirubin (0.2-1.3) mg/dL AST (17-59) U/L Total Protein (6.3-8.2) g/dL Albumin (3.5-5.0) g/dL 10/17/24 10/17/24 10/17/24 Range/Units 04:20 05:02 06:26 WBC (4.50-10.00) 10*3/uL RBC (4.40-5.60) 10*6/uL Hgb (13.0-17.0) g/dL Hct (39.6-50.0) % MCH (27.0-32.0) pg Immature Gran # (0.00-0.04) 10*3/uL Neutrophils # (1.80-7.70) 10*3/uL Monocytes # (0.20-1.00) 10*3/uL Eosinophils # (0.04-0.35) 10*3/uL Sodium 132 L (137-145) mmol/L BUN 6 L (9-20) mg/dL Creatinine 0.62 L (0.66-1.25) mg/dL Glucose 109 H (74-99) mg/dL POC Glucose (mg/dL) 130 H 129 H (70-110) mg/dL Calcium 8.0 L (8.4-10.2) mg/dL Ionized Calcium Jamila 4.4 L (4.5-5.3) mg/dL Total Bilirubin 1.5 H (0.2-1.3) mg/dL AST 69 H (17-59) U/L Total Protein 5.1 L (6.3-8.2) g/dL Albumin 3.3 L (3.5-5.0) g/dL - Imaging and Cardiology Chest x-ray: report reviewed, image reviewed Assessment and Plan Assessment: Multivessel coronary artery disease, non-ST elevated myocardial infarction this admission, status post four-vessel CABG Postoperative acute blood loss anemia, expected given hemodilution and cardiopulmonary bypass pump History of hypertension currently not taking any antihypertensives outpatient Poor dentition Anxiety Current chewing tobacco use, cessation of cigarette smoking 15 years ago Daily marijuana use smoking 8-10 joints daily Family history of early onset coronary artery disease Plan: Continue to maximize medical therapy with aspirin, statin, Plavix, beta-kandy. Will increase beta-kandy therapy as tolerated, increased to 25 mg twice daily last night, increased to 50 mg twice daily today Continue amiodarone for atrial fibrillation prophylaxis, will taper dose weekly. Patient has had no atrial fibrillation up to this point Continue calcium channel kandy for radial artery spasm prophylaxis, will increase to 5 mg daily if blood pressure tolerates today Encourage incentive spirometry use 10 times every hour while awake, bronchodilators per pulmonology Increase activity, ambulate as tolerated. PT/OT/cardiac rehab consulted Will monitor daily labs and x-rays. Electrolyte replacement per protocol. No Lasix today GI/DVT prophylaxis Insulin management per internal medicine. Patient is not diabetic, preoperative hemoglobin A1c 5.8% Pain control per current medication regimen Discontinue cordis, arterial line Ground epicardial wires, will discontinue tomorrow Will discontinue mediastinal chest tube, continue left pleural chest tube for a nother 24 hours, monitor record output Monitor and record strict accurate intake and output May bladder scan and straight cath for greater than 300 mL residual Daily weights Will place transfer orders for 3 S. cardiac stepdown unit, may transfer when bed available Discharge planning in progress, anticipate discharge to home with home care in 48 hours More recommendations to follow based on patient's progress
[2024-10-17 08:02] LABS: Glucose,Whole Blood 116 mg/dL (70-110)
[2024-10-17] MEDS: MAGNESIUM SULFATE-D5W PMX 1 GM in DEXTROSE/WATER 1 100ML.BAG IVPB ONE (09:01)
[2024-10-17] MEDS: METOPROLOL TARTRATE 50 MG TAB PO SCH (09:04)
--- NOTE | 2024-10-17 10:57 | P.PN ---
Subjective Progress Note Date: 10/17/24 The patient is a 48-year-old male who presented to the hospital with chest discomfort and elevated troponins. He was found to have multivessel coronary artery disease and underwent coronary artery bypass yesterday with MENDEZ to LAD, radial to OM, SVG to PDA and SVG to diagonal. Patient interviewed and examined resting in the recliner chair. He does have some mild chest discomfort. No current difficulty breathing. GENERAL: Well-appearing, well-nourished and in no acute distress. NECK: Supple without JVD or thyromegaly. LUNGS: Breath sounds clear to auscultation bilaterally. Respiration equal and unlabored. No wheezes, rales or rhonchi. HEART: Regular rate and rhythm without murmurs, rubs or gallops. S1 and S2 heard. EXTREMITIES: Normal range of motion, no edema. No clubbing or cyanosis. Per ipheral pulses intact and strong. VITALS: Hypertensive overnight TELEMETRY: Sinus rhythm IMPRESSION: Chest pain with elevated troponins, non-STEMI, status post cardiac catheterization revealing multivessel CAD Status post coronary bypass x 4 Hypertension, not taking antihypertensive medications on an outpatient basis Elevated lipase, 434 on admission, resolved Marijuana use PLAN: Continue supportive treatment Aggressive pulmonary hygiene Agree with downgrade to 3 South I am dictating on behalf of Dr Edmond Crespo's history/physical and assessment/plan. Objective - Vital Signs Vital signs: Vital Signs Temp 98.4 F 10/17/24 08:00 Pulse 80 10/17/24 10:00 Resp 17 10/17/24 10:00 BP 125/76 10/17/24 10:00 Pulse Ox 96 10/17/24 10:00 FiO2 21 10/17/24 09:18 Intake & Output 10/16/24 10/17/24 10/17/24 18:59 06:59 18:59 Intake Total 921.461 626.499 235.196 Output Total 1155 1370 250 Balance -233.539 -743.501 -14.804 Weight 93.8 kg 93.9 kg Intake: IV 684 598 128 CO/CI 30 Pressure 84 78 18 Sodium Chloride 0.9% 1, 520 520 110 000 ml @ 20 mls/hr IV . Q24H [facility] Rx#:[id number] ceFAZolin 2 gm In Sodium 50 Chloride 0.9% 50 ml @ 100 mls/hr IVPB ONCE ONE Rx# :[id number] Intake, IV Titration 237.461 28.499 107.196 Amount Insulin Regular 100 unit 37.461 28.499 7.196 In Sodium Chloride 0.9% 100 ml @ Per Protocol IV .Q0M [facility] Rx#:[id number] Magnesium Sulfate-D5w Pmx 200 1 gm In Dextrose/Water 1 100ml.bag @ 100 mls/hr IVPB ONCE ONE Rx#: [id number] Magnesium Sulfate-D5w Pmx 100 1 gm In Dextrose/Water 1 100ml.bag @ 100 mls/hr IVPB ONCE ONE Rx#: [id number] Output: Chest Tube Drainage 640 280 100 Left Pleural 420 220 100 Mediastinal x2 220 60 Urine 515 1090 150 Other: Voiding Method Indwelling Catheter Urinal ABP, PAP, CO, CI - Last Documented Arterial Blood Pressure 145/59 Pulmonary Artery Pressure 27/7 Cardiac Output 7.2 Cardiac Index 3.5 - Labs CBC & Chem 7: 10/17/24 04:20 10/17/24 04:20 Labs: Abnormal Lab Results - Last 24 Hours (Table) 10/16/24 10/16/24 10/16/24 Range/Units 12:05 13:26 14:59 WBC (4.50-10.00) 10*3/uL RBC (4.40-5.60) 10*6/uL Hgb (13.0-17.0) g/dL Hct (39.6-50.0) % MCH (27.0-32.0) pg Immature Gran # (0.00-0.04) 10*3/uL Neutrophils # (1.80-7.70) 10*3/uL Monocytes # (0.20-1.00) 10*3/uL Eosinophils # (0.04-0.35) 10*3/uL Sodium (137-145) mmol/L BUN (9-20) mg/dL Creatinine (0.66-1.25) mg/dL Glucose (74-99) mg/dL POC Glucose (mg/dL) 190 H 198 H 140 H (70-110) mg/dL Calcium (8.4-10.2) mg/dL Ionized Calcium Jamila (4.5-5.3) mg/dL Total Bilirubin (0.2-1.3) mg/dL AST (17-59) U/L Total Protein (6.3-8.2) g/dL Albumin (3.5-5.0) g/dL 10/16/24 10/16/24 10/16/24 Range/Units 16:12 16:13 17:08 WBC (4.50-10.00) 10*3/uL RBC (4.40-5.60) 10*6/uL Hgb (13.0-17.0) g/dL Hct (39.6-50.0) % MCH (27.0-32.0) pg Immature Gran # (0.00-0.04) 10*3/uL Neutrophils # (1.80-7.70) 10*3/uL Monocytes # (0.20-1.00) 10*3/uL Eosinophils # (0.04-0.35) 10*3/uL Sodium 135 L (137-145) mmol/L BUN 6 L (9-20) mg/dL Creatinine (0.66-1.25) mg/dL Glucose 122 H (74-99) mg/dL POC Glucose (mg/dL) 132 H 116 H (70-110) mg/dL Calcium 7.9 L (8.4-10.2) mg/dL Ionized Calcium Jamila (4.5-5.3) mg/dL Total Bilirubin (0.2-1.3) mg/dL AST (17-59) U/L Total Protein (6.3-8.2) g/dL Albumin (3.5-5.0) g/dL 10/16/24 10/16/24 10/16/24 Range/Units 19:05 21:08 21:43 WBC (4.50-10.00) 10*3/uL RBC (4.40-5.60) 10*6/uL Hgb (13.0-17.0) g/dL Hct (39.6-50.0) % MCH (27.0-32.0) pg Immature Gran # (0.00-0.04) 10*3/uL Neutrophils # (1.80-7.70) 10*3/uL Monocytes # (0.20-1.00) 10*3/uL Eosinophils # (0.04-0.35) 10*3/uL Sodium (137-145) mmol/L BUN (9-20) mg/dL Creatinine (0.66-1.25) mg/dL Glucose (74-99) mg/dL POC Glucose (mg/dL) 151 H 119 H 116 H (70-110) mg/dL Calcium (8.4-10.2) mg/dL Ionized Calcium Jamila (4.5-5.3) mg/dL Total Bilirubin (0.2-1.3) mg/dL AST (17-59) U/L Total Protein (6.3-8.2) g/dL Albumin (3.5-5.0) g/dL 10/17/24 10/17/24 10/17/24 Range/Units 01:02 02:19 04:20 WBC 16.01 H (4.50-10.00) 10*3/uL RBC 2.57 L (4.40-5.60) 10*6/uL Hgb 8.6 L (13.0-17.0) g/dL Hct 24.0 L (39.6-50.0) % MCH 33.5 H (27.0-32.0) pg Immature Gran # 0.09 H (0.00-0.04) 10*3/uL Neutrophils # 11.21 H (1.80-7.70) 10*3/uL Monocytes # 2.11 H (0.20-1.00) 10*3/uL Eosinophils # 0.02 L (0.04-0.35) 10*3/uL Sodium (137-145) mmol/L BUN (9-20) mg/dL Creatinine (0.66-1.25) mg/dL Glucose (74-99) mg/dL POC Glucose (mg/dL) 127 H 120 H (70-110) mg/dL Calcium (8.4-10.2) mg/dL Ionized Calcium Jamila (4.5-5.3) mg/dL Total Bilirubin (0.2-1.3) mg/dL AST (17-59) U/L Total Protein (6.3-8.2) g/dL Albumin (3.5-5.0) g/dL 10/17/24 10/17/24 10/17/24 Range/Units 04:20 05:02 06:26 WBC (4.50-10.00) 10*3/uL RBC (4.40-5.60) 10*6/uL Hgb (13.0-17.0) g/dL Hct (39.6-50.0) % MCH (27.0-32.0) pg Immature Gran # (0.00-0.04) 10*3/uL Neutrophils # (1.80-7.70) 10*3/uL Monocytes # (0.20-1.00) 10*3/uL Eosinophils # (0.04-0.35) 10*3/uL Sodium 132 L (137-145) mmol/L BUN 6 L (9-20) mg/dL Creatinine 0.62 L (0.66-1.25) mg/dL Glucose 109 H (74-99) mg/dL POC Glucose (mg/dL) 130 H 129 H (70-110) mg/dL Calcium 8.0 L (8.4-10.2) mg/dL Ionized Calcium Jamila 4.4 L (4.5-5.3) mg/dL Total Bilirubin 1.5 H (0.2-1.3) mg/dL AST 69 H (17-59) U/L Total Protein 5.1 L (6.3-8.2) g/dL Albumin 3.3 L (3.5-5.0) g/dL 10/17/24 Range/Units 08:01 WBC (4.50-10.00) 10*3/uL RBC (4.40-5.60) 10*6/uL Hgb (13.0-17.0) g/dL Hct (39.6-50.0) % MCH (27.0-32.0) pg Immature Gran # (0.00-0.04) 10*3/uL Neutrophils # (1.80-7.70) 10*3/uL Monocytes # (0.20-1.00) 10*3/uL Eosinophils # (0.04-0.35) 10*3/uL Sodium (137-145) mmol/L BUN (9-20) mg/dL Creatinine (0.66-1.25) mg/dL Glucose (74-99) mg/dL POC Glucose (mg/dL) 116 H (70-110) mg/dL Calcium (8.4-10.2) mg/dL Ionized Calcium Jamila (4.5-5.3) mg/dL Total Bilirubin (0.2-1.3) mg/dL AST (17-59) U/L Total Protein (6.3-8.2) g/dL Albumin (3.5-5.0) g/dL
[2024-10-17 12:33] LABS: Glucose,Whole Blood 199 mg/dL (70-110)
--- NOTE | 2024-10-17 12:38 | PN ---
PROGRESS NOTE DATE OF SERVICE: 10/16/2024 SUBJECTIVE: This 48-year-old gentleman admitted after CAD, CABG, is on IV insulin drip at this time. The patient's blood sugars being closely monitored. The patient still has chest tube in place as well as Chakraborty catheter also. The diet has been initiated full liquid diet for tonight dinner. PAST MEDICAL HISTORY: Reviewed. REVIEW OF SYSTEMS: 14-point review is negative. CURRENT MEDICATIONS: Reviewed. PHYSICAL EXAMINATION: VITAL SIGNS: Pulse 81, blood pressure 90/74, respirations 20. HEENT: Conjunctivae normal. CARDIOVASCULAR: S1, S2. RESPIRATION: Few scattered rhonchi. ABDOMEN: Soft. NERVOUS SYSTEM: Nonfocal. LABORATORY DATA: Hemoglobin 8.6. Otherwise, sodium 135. ASSESSMENT: 1. Coronary artery disease, status post CABG. 2. Elevated blood sugars, on insulin drip. 3. Hypertension. 4. Obesity. 5. Anxiety. 7. Nicotine dependence. RECOMMENDATIONS: Recommend to continue current management and treatment. Otherwise, I would recommend to continue the insulin drip for now. Once the patient is on p.o., the patient will be started on day shot insulin. Otherwise, DVT prophylaxis. Incentive spirometry. Closely follow. Further recommendations to follow. Hemoglobin A1c. MMODL / IJN: [id number] / JAMES
[2024-10-17] MEDS: INSULIN LISPRO (HumaLOG) 100 UNIT/ML 10 mL VL SQ SCH (13:03)
[2024-10-17] MEDS: amLODIPine 5 MG TAB PO SCH (13:10)
--- NOTE | 2024-10-17 16:37 | P.PN ---
Subjective Progress Note Date: 10/17/24 On 10/15/2024, the patient is being seen immediately following his cardiac surgery. The patient had surgery by Dr. Arvizu and the patient underwent four- vessel bypass surgery including MENDEZ to LAD, radial to OM, SVG to PDA and diagonal. The patient was seen immediately in the ICU following his arrival and the patient was calm and comfortable on propofol. The patient was on assist- control mode of mechanical ventilation at rate of 12, tidal volume of 500, FiO2 of 100% with a PEEP of 5. The pH was 7.28 with a PCO2 of 54 and PO2 of 394. The patient had 2 mediastinal chest tubes and a single left pleural chest tube. Chest x-ray shows no acute abnormalities. Tubes and lines are all in place and the patient has minimal output through the chest tube and there is no evidence of any air leak or pneumothorax. Hemodynamically, the patient has a [place]Teresa catheter in place. Cardiac output is at 5.1 with an index of 2.5. Cardiac rhythm is sinus. The patient is currently on amiodarone at 1 mg/min and nitroglycerin drip at 5 mcg/min. Urine output is adequate. There was a close at 20 with a hemoglobin 10.3 and the platelet count of 164. The sodium is at 137, potassium is at 4.1, BUN is 10 with a creatinine of 0.6. LFTs are normal at this point. Cardiac rhythm is sinus. No other significant events since his arrival to the intensive care unit. On 10/16/2024, the patient is being seen for a follow-up. The patient is currently postop day #1. The patient is doing very well. No significant respite difficulties. He is currently on room air oxygen. Hemodynamically stable. No fever. No chills. No cardiac arrhythmias and the patient's cardiac rhythm is sinus. The patient is currently off nitroglycerin drip. Amiodarone will be switched to oral. [place]Teresa catheter still in place and the patient's PA pressures are 34/12 with a cardiac output of 7.2 and index of 3.0. Insulin drip is still running at 1 unit an hour. Output from the chest tubes have been noted. The patient has a total of 750 cc of output since surgery from the mediastinal tube and 400 cc from the left lower chest tube. Tubes will be kept in place. No evidence of pneumothorax on today's chest x-ray. The patient has a backup pacemaker, VVI mode at rate of 50. Awake alert and communicating. Denies having any specific complaints. Blood work from today shows a WBC count of 11.4, hemoglobin of 8.6 and a platelet count of 160. Sodium is at 135, BUN is 9 with a creatinine of 0.6. LFTs are normal. No other significant events otherwise for now. No focal neurological deficits. On 10/17/2024, the patient is being seen for a follow-up. The patient is doing extremely well. Calm and comfortable. Remains on room air oxygen. Denies having any significant respiratory distress. Chest tubes are in place and output was also noted. The patient CVP is at 9. The patient has produced around 250 cc from the mediastinal chest tube over the past 24 hours and 650 cc from the left pleural chest tube. Cardiac rhythm is sinus. Awake and alert and communicating. No significant shortness of breath with using incentive spirometer. No significant anxiety. No agitation. No altered mentation. [place] -Teresa catheter has been removed. Chest x-ray shows expected adequate expansion of both lungs and there is no evidence of any pneumothorax. The white cell count is 16, hemoglobin is 8.6 and a platelet count of 171. Sodium is at 132, potassium is 4.2, BUN 6 with a creatinine of 0.62. LFTs are normal. No other significant events overnight. The patient is currently on oral amiodarone 400 mg p.o. twice a day. Remains on 5 mg of Norvasc for blood pressure control. Metoprolol has been changed to 50 mg p.o. twice daily. He is currently off insulin drip. The patient is on sliding scale insulin for blood sugar control. Remains on aspirin and Plavix. Remains on Lipitor. Objective - Vital Signs Vital signs: Vital Signs Temp 98.3 F 10/16/24 20:00 Pulse 93 10/17/24 09:25 Resp 23 10/17/24 06:00 BP 135/77 10/17/24 06:00 Pulse Ox 95 10/17/24 09:18 FiO2 21 10/17/24 09:18 Intake & Output 10/16/24 10/17/24 10/17/24 18:59 06:59 18:59 Intake Total 921.461 626.499 7.196 Output Total 1155 1370 Balance -233.539 -743.501 7.196 Weight 93.8 kg 93.9 kg Intake: IV 684 598 CO/CI 30 Pressure 84 78 Sodium Chloride 0.9% 1, 520 520 000 ml @ 20 mls/hr IV . Q24H [facility] Rx#:[id number] ceFAZolin 2 gm In Sodium 50 Chloride 0.9% 50 ml @ 100 mls/hr IVPB ONCE ONE Rx# :[id number] Intake, IV Titration 237.461 28.499 7.196 Amount Insulin Regular 100 unit 37.461 28.499 7.196 In Sodium Chloride 0.9% 100 ml @ Per Protocol IV .Q0M [facility] Rx#:[id number] Magnesium Sulfate-D5w Pmx 200 1 gm In Dextrose/Water 1 100ml.bag @ 100 mls/hr IVPB ONCE ONE Rx#: [id number] Output: Chest Tube Drainage 640 280 Left Pleural 420 220 Mediastinal x2 220 60 Urine 515 1090 Other: Voiding Method Indwelling Catheter Urinal ABP, PAP, CO, CI - Last Documented Arterial Blood Pressure 145/59 Pulmonary Artery Pressure 27/7 Cardiac Output 7.2 Cardiac Index 3.5 - Exam CONSTITUTIONAL: Appears comfortable, cooperative, no acute distress RESPIRATORY: Lungs sounds diminished in the bases bilaterally. Respirations even, nonlabored. Currently on room air with oxygen saturation 91%. Able to achieve 750 mL on incentive spirometry. Strong cough. CARDIOVASCULAR: S1, S2 present. Regular rate and rhythm, sinus rhythm to sinus tach on telemetry. Sternum stable. Palpable peripheral pulses bilaterally. No edema present. No calf pain or tenderness noted. Heart hugger in place with patient demonstrating appropriate use. Antiembolism stockings, SCDs present. GASTROINTESTINAL: Abdomen soft, nontender, nondistended. Active bowel sounds present 4 quadrants. Tolerating diet. Positive flatus GENITOURINARY: Chakraborty was discontinued yesterday per patient request, continues to void, 490 mL overnight, 1605 mL in the last 24 hours INTEGUMENTARY: Skin is warm and dry with evidence of good perfusion. Anterior chest incision well approximated and covered with dry intact dressing. Left radial artery harvest site as well as left lower extremity EVH site well approximated without redness or drainage. NEUROLOGIC: Cranial nerves II through XII intact MUSKULOSKELETAL: Able to move all extremities, strength equal bilaterally, gait normal PSYCHIATRIC: Alert and oriented to person place and time, appropriate affect, intact judgment and insight INVASIVE LINES AND TUBES: Mediastinal/left pleural chest tubes present and connected to wall suction, no air leaks present. Mediastinal tube with 10 mL serosanguineous drainage overnight, 250 mL in the last 24 hours. Left pleural chest tube with 140 mL serosanguineous drainage overnight, 650 mL in the last 24 hours. A/V epicardial pacemaker wires present, connected to generator, VVI mode with backup rate 50 bpm. Right internal jugular cordis, right radial arterial line present. Last CVP 9 - Labs CBC & Chem 7: 10/17/24 04:20 10/17/24 04:20 Labs: Abnormal Lab Results - Last 24 Hours (Table) 10/16/24 10/16/24 10/16/24 Range/Units 10:18 12:05 13:26 WBC (4.50-10.00) 10*3/uL RBC (4.40-5.60) 10*6/uL Hgb (13.0-17.0) g/dL Hct (39.6-50.0) % MCH (27.0-32.0) pg Immature Gran # (0.00-0.04) 10*3/uL Neutrophils # (1.80-7.70) 10*3/uL Monocytes # (0.20-1.00) 10*3/uL Eosinophils # (0.04-0.35) 10*3/uL Sodium (137-145) mmol/L BUN (9-20) mg/dL Creatinine (0.66-1.25) mg/dL Glucose (74-99) mg/dL POC Glucose (mg/dL) 157 H 190 H 198 H (70-110) mg/dL Calcium (8.4-10.2) mg/dL Ionized Calcium Jamila (4.5-5.3) mg/dL Total Bilirubin (0.2-1.3) mg/dL AST (17-59) U/L Total Protein (6.3-8.2) g/dL Albumin (3.5-5.0) g/dL 10/16/24 10/16/24 10/16/24 Range/Units 14:59 16:12 16:13 WBC (4.50-10.00) 10*3/uL RBC (4.40-5.60) 10*6/uL Hgb (13.0-17.0) g/dL Hct (39.6-50.0) % MCH (27.0-32.0) pg Immature Gran # (0.00-0.04) 10*3/uL Neutrophils # (1.80-7.70) 10*3/uL Monocytes # (0.20-1.00) 10*3/uL Eosinophils # (0.04-0.35) 10*3/uL Sodium 135 L (137-145) mmol/L BUN 6 L (9-20) mg/dL Creatinine (0.66-1.25) mg/dL Glucose 122 H (74-99) mg/dL POC Glucose (mg/dL) 140 H 132 H (70-110) mg/dL Calcium 7.9 L (8.4-10.2) mg/dL Ionized Calcium Jamila (4.5-5.3) mg/dL Total Bilirubin (0.2-1.3) mg/dL AST (17-59) U/L Total Protein (6.3-8.2) g/dL Albumin (3.5-5.0) g/dL 10/16/24 10/16/24 10/16/24 Range/Units 17:08 19:05 21:08 WBC (4.50-10.00) 10*3/uL RBC (4.40-5.60) 10*6/uL Hgb (13.0-17.0) g/dL Hct (39.6-50.0) % MCH (27.0-32.0) pg Immature Gran # (0.00-0.04) 10*3/uL Neutrophils # (1.80-7.70) 10*3/uL Monocytes # (0.20-1.00) 10*3/uL Eosinophils # (0.04-0.35) 10*3/uL Sodium (137-145) mmol/L BUN (9-20) mg/dL Creatinine (0.66-1.25) mg/dL Glucose (74-99) mg/dL POC Glucose (mg/dL) 116 H 151 H 119 H (70-110) mg/dL Calcium (8.4-10.2) mg/dL Ionized Calcium Jamila (4.5-5.3) mg/dL Total Bilirubin (0.2-1.3) mg/dL AST (17-59) U/L Total Protein (6.3-8.2) g/dL Albumin (3.5-5.0) g/dL 10/16/24 10/17/24 10/17/24 Range/Units 21:43 01:02 02:19 WBC (4.50-10.00) 10*3/uL RBC (4.40-5.60) 10*6/uL Hgb (13.0-17.0) g/dL Hct (39.6-50.0) % MCH (27.0-32.0) pg Immature Gran # (0.00-0.04) 10*3/uL Neutrophils # (1.80-7.70) 10*3/uL Monocytes # (0.20-1.00) 10*3/uL Eosinophils # (0.04-0.35) 10*3/uL Sodium (137-145) mmol/L BUN (9-20) mg/dL Creatinine (0.66-1.25) mg/dL Glucose (74-99) mg/dL POC Glucose (mg/dL) 116 H 127 H 120 H (70-110) mg/dL Calcium (8.4-10.2) mg/dL Ionized Calcium Jamila (4.5-5.3) mg/dL Total Bilirubin (0.2-1.3) mg/dL AST (17-59) U/L Total Protein (6.3-8.2) g/dL Albumin (3.5-5.0) g/dL 10/17/24 10/17/24 10/17/24 Range/Units 04:20 04:20 05:02 WBC 16.01 H (4.50-10.00) 10*3/uL RBC 2.57 L (4.40-5.60) 10*6/uL Hgb 8.6 L (13.0-17.0) g/dL Hct 24.0 L (39.6-50.0) % MCH 33.5 H (27.0-32.0) pg Immature Gran # 0.09 H (0.00-0.04) 10*3/uL Neutrophils # 11.21 H (1.80-7.70) 10*3/uL Monocytes # 2.11 H (0.20-1.00) 10*3/uL Eosinophils # 0.02 L (0.04-0.35) 10*3/uL Sodium 132 L (137-145) mmol/L BUN 6 L (9-20) mg/dL Creatinine 0.62 L (0.66-1.25) mg/dL Glucose 109 H (74-99) mg/dL POC Glucose (mg/dL) 130 H (70-110) mg/dL Calcium 8.0 L (8.4-10.2) mg/dL Ionized Calcium Jamila 4.4 L (4.5-5.3) mg/dL Total Bilirubin 1.5 H (0.2-1.3) mg/dL AST 69 H (17-59) U/L Total Protein 5.1 L (6.3-8.2) g/dL Albumin 3.3 L (3.5-5.0) g/dL 10/17/24 10/17/24 Range/Units 06:26 08:01 WBC (4.50-10.00) 10*3/uL RBC (4.40-5.60) 10*6/uL Hgb (13.0-17.0) g/dL Hct (39.6-50.0) % MCH (27.0-32.0) pg Immature Gran # (0.00-0.04) 10*3/uL Neutrophils # (1.80-7.70) 10*3/uL Monocytes # (0.20-1.00) 10*3/uL Eosinophils # (0.04-0.35) 10*3/uL Sodium (137-145) mmol/L BUN (9-20) mg/dL Creatinine (0.66-1.25) mg/dL Glucose (74-99) mg/dL POC Glucose (mg/dL) 129 H 116 H (70-110) mg/dL Calcium (8.4-10.2) mg/dL Ionized Calcium Jamila (4.5-5.3) mg/dL Total Bilirubin (0.2-1.3) mg/dL AST (17-59) U/L Total Protein (6.3-8.2) g/dL Albumin (3.5-5.0) g/dL Assessment and Plan Plan: Coronary artery disease post acute non-ST segment elevation myocardial infarction. 2D echocardiogram which demonstrated a left ventricular ejection fraction to be estimated at 55 to 60%, trace mitral valve regurgitation, trace to mild aortic valve regurgitation, trace tricuspid valve regurgitation, trace pulmonic valve regurgitation, and a normal size aortic root and proximal ascending aorta. The cardiac catheterization which was completed and revealed a 90% stenosis to his mid left anterior descending coronary artery, and 80 to 90% stenosis to his ostial diagonal 2, a 50 to 60% stenosis to his proximal left circumflex coronary artery and a 70% stenosis to his mid right coronary artery. Coronary artery bypass surgery with four-vessel bypass with MENDEZ to LAD, radial to and SVG to PDA and diagonal. The patient is hemodynamically stable. Adequate cardiac output and index. Adequate urine output. Cardiac rhythm is sinus. The patient is postop day day #2 and the patient is hemodynamically stable. Cardiac rhythm is sinus. Postthoracotomy, extubated and the patient is currently on room air oxygen. Using incentive spirometer. Mediastinal chest tubes in the left lower chest tubes are in place. Output has been noted. Chest x-ray shows some atelectatic change lung base bilaterally. No significant respiratory distress. Hypertension Chronic marijuana smoking Former smoker the patient quit smoking 15 years ago Chronic anxiety Poor dentition Plan Continues incentive spirometer Patient is on room air oxygen Monitor output from the chest tubes, the mediastinal chest tube will likely be removed. Insulin drip will be discontinued and the patient will be placed on sliding scale insulin coverage Oral amiodarone 400 mg p.o. twice a day Metoprolol 50 mg p.o. twice daily Norvasc 5 mg p.o. daily Continue aspirin Continue Plavix Continue Lipitor 40 mg p.o. daily Chest x-ray was noted Increase mobility Keep in ICU for another 24 hours. The chest tube will be kept in place for another 24 hours.
[2024-10-17 20:05] LABS: Glucose,Whole Blood 137 mg/dL (70-110)
[2024-10-17 20:48] LABS: Glucose,Whole Blood 135 mg/dL (70-110)
--- NOTE | 2024-10-17 23:15 | PN ---
PROGRESS NOTE DATE OF SERVICE: 10/17/2024 SUBJECTIVE: This 48-year-old gentleman admitted after CAD and CABG, improved significantly. The patient is off insulin drip at this time. The patient is on insulin coverage. Glucoses has been between 130 and 199. PHYSICAL EXAMINATION: VITAL SIGNS: Pulse is 87, blood pressure 110/69, and respirations 18. CHEST: Few scattered rhonchi. ABDOMEN: Soft. CARDIOVASCULAR: S1 and S2 muffled. ABDOMEN: Soft. LABORATORY DATA: Reviewed. ASSESSMENT: 1. Coronary artery disease, status post coronary artery bypass grafting. 2. Elevated blood sugars, off insulin drip. 3. Hypertension. 4. Obesity. 5. Anxiety. 6. History of nicotine dependence. RECOMMENDATIONS: Recommend to continue current management and treatment. I would recommend to continue the current dose of Accu-Cheks a.c. and h.s. and monitor blood sugars closely. The patient is on a consistent carb diet. We will continue to monitor. If the blood sugars elevated, we will add mealtime insulin or long-acting insulin according to the blood sugar levels. MMODL / IJN: [id number] /
[2024-10-18 00:11] VITALS: RESP 18
[2024-10-18 06:03] LABS: Glucose,Whole Blood 161 mg/dL (70-110)
[2024-10-18 06:35] LABS: Basophils # (A) 0.04 10*3/uL (0.00-0.10); Basophils % (A) 0.3 %; Eosinophils # (A) 0.08 10*3/uL (0.04-0.35); Eosinophils % (A) 0.6 %; HCT 24.4 % (39.6-50.0); HGB 8.2 g/dL (13.0-17.0); Lymphocytes # (A) 3.56 10*3/uL (0.90-5.00); Lymphocytes % (A) 24.6 %; MCH 32.0 pg (27.0-32.0); MCHC 33.6 g/dL (32.0-37.0); MCV 95.3 fL (80.0-97.0); Monocytes # (A) 1.57 10*3/uL (0.20-1.00); Monocytes % (A) 10.8 %; Neutrophils # (A) 9.15 10*3/uL (1.80-7.70); Neutrophils % (A) 63.1 %; Platelet Count 199 10*3/uL (140-440); RBC 2.56 10*6/uL (4.40-5.60); RDW 12.7 % (11.5-14.5); WBC 14.49 10*3/uL (4.50-10.00)
[2024-10-18 06:50] LABS: ALT 20 U/L (4-49); AST 35 U/L (17-59); African American GFR (CKD) >90 (>60 ml/min/1.73 sqM); Albumin 3.3 g/dL (3.5-5.0); Alkaline Phosphatase 44 U/L (38-126); Anion Gap 7 mmol/L; Blood Urea Nitrogen 11 mg/dL (9-20); Calcium 8.0 mg/dL (8.4-10.2); Carbon Dioxide 25 mmol/L (22-30); Chloride 103 mmol/L (98-107); Glucose 118 mg/dL (74-99); Magnesium 2.1 mg/dL (1.6-2.3); Non-African American GFR(CKD) >90 (>60 ml/min/1.73 sqM); Potassium 3.9 mmol/L (3.5-5.1); Sodium 135 mmol/L (137-145); Total Protein 5.2 g/dL (6.3-8.2)
--- NOTE | 2024-10-18 07:12 | XR ---
EXAMINATION TYPE: XR chest 1V portable DATE OF EXAM: 10/18/2024 6:50 AM COMPARISON: Chest radiograph from one day prior. CLINICAL INDICATION: Male, 48 years old with history of Postcardiac surgery; [facility] TECHNIQUE: XR chest 1V portable Frontal view of the chest. FINDINGS: Lungs/Pleura: There is no evidence of pleural effusion, focal consolidation, or pneumothorax. Pulmonary vascularity: Unremarkable. Heart/mediastinum: Cardiomediastinal silhouette is unremarkable. Musculoskeletal: No acute osseous pathology. Midline sternotomy wires are noted. Other findings: None Lines/Tubes: Left thoracotomy tube is present without evidence of pneumothorax. There is a [place]-Teresa catheter sheath has been removed. Drainage tubes with tips projecting over the mediastinum. IMPRESSION: Postsurgical changes lines and tubes as above. [facility], , 10/18/2024 7:10 AM
--- NOTE | 2024-10-18 07:29 | P.PN ---
Subjective Progress Note Date: 10/18/24 Principal diagnosis: Multivessel coronary artery disease, non-ST elevated myocardial infarction this admission. Previous medical history of hypertension currently not taking any a ntihypertensives outpatient, poor dentition, family history of early onset coronary artery disease, anxiety, current chewing tobacco use, cessation of cigarette smoking 15 years ago, and daily marijuana use smoking 8-10 joints daily POD#3 coronary artery bypass graft x 4 with left internal mammary artery to left anterior descending artery, RADIAL to obtuse marginal branch, saphenous vein graft to posterior descending artery, saphenous vein graft to DIAGONAL, left atrial appendage occlusion 35 mm Atriclip, medistim graft flow measurement, endoscopic harvest left greater saphenous vein, endoscopic harvest left radial artery Postoperative acute blood loss anemia, expected given hemodilution and cardiopulmonary bypass pump The patient was seen and examined this morning sitting up in recliner on the cardiac stepdown unit in no acute distress. Remains in sinus rhythm, hemodynamically stable. Currently on room air with oxygen saturation in the mid 90s, able to achieve 1500 mL on incentive spirometry. He does complain of expected postsurgical pain controlled with current medication regimen, denies shortness of breath. Left pleural chest tube remains. Patient has been ambulatory multiple times in the hallway with standby assist. States he feels much better today. No other new concerns. Objective - Vital Signs Vital signs: Vital Signs Temp 98.3 F 10/18/24 04:00 Pulse 98 10/18/24 04:00 Resp 18 10/18/24 04:00 BP 149/75 10/18/24 04:00 Pulse Ox 94 L 10/18/24 04:00 FiO2 21 10/17/24 09:18 Intake & Output 10/17/24 10/18/24 10/18/24 18:59 06:59 18:59 Intake Total 275.196 Output Total 1730 1260 Balance -1454.804 -1260 Weight 93.3 kg Intake: IV 168 Pressure 18 Sodium Chloride 0.9% 1, 150 000 ml @ 20 mls/hr IV . Q24H [facility] Rx#:[id number] Intake, IV Titration 107.196 Amount Insulin Regular 100 unit 7.196 In Sodium Chloride 0.9% 100 ml @ Per Protocol IV .Q0M [facility] Rx#:[id number] Magnesium Sulfate-D5w Pmx 100 1 gm In Dextrose/Water 1 100ml.bag @ 100 mls/hr IVPB ONCE ONE Rx#: [id number] Output: Chest Tube Drainage 230 110 Left Pleural 230 110 Urine 1500 1150 Other: Voiding Method Urinal Urinal # Voids 5 1 ABP, PAP, CO, CI - Last Documented Arterial Blood Pressure 145/59 Pulmonary Artery Pressure 27/7 Cardiac Output 7.2 Cardiac Index 3.5 - Exam CONSTITUTIONAL: Appears comfortable, cooperative, no acute distress RESPIRATORY: Lungs sounds diminished in the bases bilaterally. Respirations even, nonlabored. Currently on room air with oxygen saturation 94%. Able to achieve 1500 mL on incentive spirometry. Strong cough. CARDIOVASCULAR: S1, S2 present. Regular rate and rhythm, sinus rhythm to sinus tach on telemetry. Sternum stable. Palpable peripheral pulses bilaterally. No edema present. No calf pain or tenderness noted. Heart hugger in place with patient demonstrating appropriate use. Antiembolism stockings, SCDs present. GASTROINTESTINAL: Abdomen soft, nontender, nondistended. Active bowel sounds present 4 quadrants. Tolerating diet. Positive flatus GENITOURINARY: Continues to void, 2650 mL in the last 24 hours INTEGUMENTARY: Skin is warm and dry with evidence of good perfusion. Anterior chest incision well approximated and covered with dry intact dressing. Left radial artery harvest site as well as left lower extremity EVH site well approximated without redness or drainage. NEUROLOGIC: Cranial nerves II through XII intact MUSKULOSKELETAL: Able to move all extremities, strength equal bilaterally, gait normal PSYCHIATRIC: Alert and oriented to person place and time, appropriate affect, intact judgment and insight INVASIVE LINES AND TUBES: Left pleural chest tubes present to water seal, no air leaks present, 110 mL serosanguineous drainage overnight, 210 mL in the last 24 hours. A/V epicardial pacemaker wires present, grounded - Allied health notes Allied health notes reviewed: nursing - Labs CBC & Chem 7: 10/18/24 05:43 10/18/24 05:43 Labs: Abnormal Lab Results - Last 24 Hours (Table) 10/17/24 10/17/24 10/17/24 Range/Units 08:01 12:31 20:03 WBC (4.50-10.00) 10*3/uL RBC (4.40-5.60) 10*6/uL Hgb (13.0-17.0) g/dL Hct (39.6-50.0) % Immature Gran # (0.00-0.04) 10*3/uL Neutrophils # (1.80-7.70) 10*3/uL Monocytes # (0.20-1.00) 10*3/uL Sodium (137-145) mmol/L Glucose (74-99) mg/dL POC Glucose (mg/dL) 116 H 199 H 137 H (70-110) mg/dL Calcium (8.4-10.2) mg/dL Total Protein (6.3-8.2) g/dL Albumin (3.5-5.0) g/dL 10/17/24 10/18/24 10/18/24 Range/Units 20:47 05:43 05:43 WBC 14.49 H (4.50-10.00) 10*3/uL RBC 2.56 L (4.40-5.60) 10*6/uL Hgb 8.2 L (13.0-17.0) g/dL Hct 24.4 L (39.6-50.0) % Immature Gran # 0.09 H (0.00-0.04) 10*3/uL Neutrophils # 9.15 H (1.80-7.70) 10*3/uL Monocytes # 1.57 H (0.20-1.00) 10*3/uL Sodium 135 L (137-145) mmol/L Glucose 118 H (74-99) mg/dL POC Glucose (mg/dL) 135 H (70-110) mg/dL Calcium 8.0 L (8.4-10.2) mg/dL Total Protein 5.2 L (6.3-8.2) g/dL Albumin 3.3 L (3.5-5.0) g/dL 10/18/24 Range/Units 06:01 WBC (4.50-10.00) 10*3/uL RBC (4.40-5.60) 10*6/uL Hgb (13.0-17.0) g/dL Hct (39.6-50.0) % Immature Gran # (0.00-0.04) 10*3/uL Neutrophils # (1.80-7.70) 10*3/uL Monocytes # (0.20-1.00) 10*3/uL Sodium (137-145) mmol/L Glucose (74-99) mg/dL POC Glucose (mg/dL) 161 H (70-110) mg/dL Calcium (8.4-10.2) mg/dL Total Protein (6.3-8.2) g/dL Albumin (3.5-5.0) g/dL - Imaging and Cardiology Chest x-ray: report reviewed, image reviewed Assessment and Plan Assessment: Multivessel coronary artery disease, non-ST elevated myocardial infarction this admission, status post four-vessel CABG Postoperative acute blood loss anemia, expected given hemodilution and cardiopulmonary bypass pump History of hypertension currently not taking any antihypertensives outpatient Poor dentition Anxiety Current chewing tobacco use, cessation of cigarette smoking 15 years ago Daily marijuana use smoking 8-10 joints daily Family history of early onset coronary artery disease Plan: Continue to maximize medical therapy with aspirin, statin, Plavix, beta-kandy. Will increase beta-kandy therapy as tolerated, increased to 75 mg twice daily today Continue amiodarone for atrial fibrillation prophylaxis, will taper dose weekly. Patient has had no atrial fibrillation up to this point Continue calcium channel kandy for radial artery spasm prophylaxis Encourage incentive spirometry use 10 times every hour while awake, bronchodilators per pulmonology Increase activity, ambulate as tolerated. PT/OT/cardiac rehab consulted Will monitor daily labs and x-rays. Electrolyte replacement per protocol. No Lasix today GI/DVT prophylaxis Insulin management per internal medicine. Patient is not diabetic, preoperative hemoglobin A1c 5.8% Pain control per current medication regimen Will discontinue epicardial pacemaker wires, patient to remain on bedrest for 1 hour post wire removal Will discontinue left pleural chest tube Monitor and record strict accurate intake and output May bladder scan and straight cath for greater than 300 mL residual Daily weights Shower daily starting tomorrow morning Discharge planning in progress, anticipate discharge to home with home care tomorrow More recommendations to follow based on patient's progress
[2024-10-18] MEDS: ALBUMIN HUMAN 25% 50 ML in EMPTY BAG 1 BAG IVPB ONE (07:59)
[2024-10-18] MEDS: ALBUMIN HUMAN 5% 500 ML in EMPTY BAG 1 BAG IVPB ONE ×5 (07:59→08:00)
[2024-10-18] MEDS: CHLORHEXIDINE GLUCONATE 15 ML CUP MUCOUS MEM ONE (08:01)
[2024-10-18] MEDS: ceFAZolin 1,000 MG in SODIUM CHLORIDE 0.9% IRRIGATIO 1,000 ML IRRIGATION ONE (08:01)
[2024-10-18] MEDS: CALCIUM CHLORIDE 100 MG/ML 10 ML SYRINGE IVP ONE (08:01)
[2024-10-18] MEDS: CLEVIDIPINE BUTYRATE 25 MG in EMPTY BAG 1 BAG IV SCH (08:01)
[2024-10-18] MEDS: ELECTROLYTE-A SOLUTION 1,000 ML with POTASSIUM CHLORIDE 100 MEQ, MAGNESIUM SULFATE 16 M... IV ONE (08:02)
[2024-10-18] MEDS: HEPARIN SODIUM 1,000 UN/ML (10ML VL) IV ONE (08:02)
[2024-10-18] MEDS: HEPARIN SODIUM,PORCINE (1 ML) 5,000 UNIT in SODIUM CHLORIDE 0.9% 500 ML 500 ML IV ONE (08:02)
[2024-10-18] MEDS: ELECTROLYTE-A SOLUTION 1,000 ML with POTASSIUM CHLORIDE 40 MEQ, MAGNESIUM SULFATE 16 ME... IV ONE (08:02)
[2024-10-18] MEDS: MANNITOL 25% 12.5 GM/50 ML VIAL IV ONE ×2 (08:03)
[2024-10-18] MEDS: NITROGLYCERIN-D5W PMX 25 MG/250 ML BTL IV ONE (08:03)
[2024-10-18] MEDS: MAGNESIUM SULFATE 16.24 MEQ in EMPTY SYRINGE 1 SYR IV ONE (08:03)
[2024-10-18] MEDS: PAPAVERINE 360 MG in SODIUM CHLORIDE 0.9% 90 ML IV ONE (08:04)
[2024-10-18] MEDS: PHENYLEPHRINE 40 MG in SODIUM CHLORIDE 0.9% 250 ML IV ONE (08:04)
[2024-10-18] MEDS: PROTAMINE SULFATE 10 MG/ML 25 ML VIAL IV ONE (08:04)
[2024-10-18] MEDS: SODIUM BICARB 8.4% 50 ML SYR (1 MEQ/ML) IV ONE (08:04)
[2024-10-18] MEDS: PROTAMINE SULFATE 250 MG in EMPTY BAG 1 BAG IV ONE (08:04)
[2024-10-18] MEDS: NITROGLYCERIN-D5W PMX 50 MG in DEXTROSE/WATER 1 250ML.BAG IV SCH (08:04)
[2024-10-18] MEDS: TRANEXAMIC ACID 2,000 MG in SODIUM CHLORIDE 0.9% 80 ML IV ONE ×2 (08:05→08:06)
[2024-10-18] MEDS: AMIODARONE 360 MG in DEXTROSE 5% IN WATER 200 ML IV ONE (08:05)
[2024-10-18] MEDS: MD COMMUNICATION TO PHARMACY 1 EACH MISC PO ONE (08:08)
[2024-10-18] MEDS: PHENYLEPHRINE 10 MG/ML VIAL IV ONE (08:09)
--- NOTE | 2024-10-18 08:57 | P.PN ---
Subjective Progress Note Date: 10/18/24 The patient was seen and evaluated this morning. He is asymptomatic. He is hemodynamically stable beside the pressure has been slightly elevated but only on 1 measurements. Beside that he is on dual antiplatelet therapy along with statin. The physical examination is remarkable for regular rhythm with a soft systolic murmur and clear breathing sounds bilaterally and no edema was noted in the lower extremities Assessment CAD status post CABG Hypertension Dyslipidemia Plan Continue the current medical regimen No need for any cardiac workup at this point Possible discharge in the next 24 hours Continue to taper down the dose of amiodarone Objective - Vital Signs Vital signs: Vital Signs Temp 98.3 F 10/18/24 04:00 Pulse 98 10/18/24 04:00 Resp 18 10/18/24 04:00 BP 149/75 10/18/24 04:00 Pulse Ox 94 L 10/18/24 04:00 FiO2 21 10/17/24 09:18 Intake & Output 10/17/24 10/18/24 10/18/24 18:59 06:59 18:59 Intake Total 275.196 222 Output Total 1730 1260 Balance -1454.804 -1260 222 Weight 93.3 kg Intake: IV 168 Pressure 18 Sodium Chloride 0.9% 1, 150 000 ml @ 20 mls/hr IV . Q24H [facility] Rx#:[id number] Intake, IV Titration 107.196 Amount Insulin Regular 100 unit 7.196 In Sodium Chloride 0.9% 100 ml @ Per Protocol IV .Q0M [facility] Rx#:[id number] Magnesium Sulfate-D5w Pmx 100 1 gm In Dextrose/Water 1 100ml.bag @ 100 mls/hr IVPB ONCE ONE Rx#: [id number] Oral 222 Output: Chest Tube Drainage 230 110 Left Pleural 230 110 Urine 1500 1150 Other: Voiding Method Urinal Urinal # Voids 5 1 ABP, PAP, CO, CI - Last Documented Arterial Blood Pressure 145/59 Pulmonary Artery Pressure 27/7 Cardiac Output 7.2 Cardiac Index 3.5 - Labs CBC & Chem 7: 10/18/24 05:43 10/18/24 05:43 Labs: Abnormal Lab Results - Last 24 Hours (Table) 10/17/24 10/17/24 10/17/24 Range/Units 12:31 20:03 20:47 WBC (4.50-10.00) 10*3/uL RBC (4.40-5.60) 10*6/uL Hgb (13.0-17.0) g/dL Hct (39.6-50.0) % Immature Gran # (0.00-0.04) 10*3/uL Neutrophils # (1.80-7.70) 10*3/uL Monocytes # (0.20-1.00) 10*3/uL Sodium (137-145) mmol/L Glucose (74-99) mg/dL POC Glucose (mg/dL) 199 H 137 H 135 H (70-110) mg/dL Calcium (8.4-10.2) mg/dL Total Protein (6.3-8.2) g/dL Albumin (3.5-5.0) g/dL 10/18/24 10/18/24 10/18/24 Range/Units 05:43 05:43 06:01 WBC 14.49 H (4.50-10.00) 10*3/uL RBC 2.56 L (4.40-5.60) 10*6/uL Hgb 8.2 L (13.0-17.0) g/dL Hct 24.4 L (39.6-50.0) % Immature Gran # 0.09 H (0.00-0.04) 10*3/uL Neutrophils # 9.15 H (1.80-7.70) 10*3/uL Monocytes # 1.57 H (0.20-1.00) 10*3/uL Sodium 135 L (137-145) mmol/L Glucose 118 H (74-99) mg/dL POC Glucose (mg/dL) 161 H (70-110) mg/dL Calcium 8.0 L (8.4-10.2) mg/dL Total Protein 5.2 L (6.3-8.2) g/dL Albumin 3.3 L (3.5-5.0) g/dL
[2024-10-18] MEDS: MAGNESIUM SULFATE-D5W PMX 1 GM in DEXTROSE/WATER 1 100ML.BAG IVPB SCH (09:10)
[2024-10-18] MEDS: POTASSIUM CHLORIDE ER 20 MEQ TAB.ER PO STA (09:10)
[2024-10-18] MEDS: METOPROLOL TARTRATE 25 MG TAB PO SCH (09:10)
[2024-10-18] MEDS: MAGNESIUM HYDROXIDE 2,400 MG/30 ML CUP PO PRN (09:11)
[2024-10-18 11:33] LABS: Glucose,Whole Blood 131 mg/dL (70-110)
[2024-10-18] MEDS ORDERED: amLODIPine 5 MG TAB PO SCH (12:00)
[2024-10-18 16:43] LABS: Glucose,Whole Blood 123 mg/dL (70-110)
--- NOTE | 2024-10-18 17:02 | P.PN ---
Subjective Progress Note Date: 10/18/24 On 10/15/2024, the patient is being seen immediately following his cardiac surgery. The patient had surgery by Dr. Arvizu and the patient underwent four- vessel bypass surgery including MENDEZ to LAD, radial to OM, SVG to PDA and diagonal. The patient was seen immediately in the ICU following his arrival and the patient was calm and comfortable on propofol. The patient was on assist- control mode of mechanical ventilation at rate of 12, tidal volume of 500, FiO2 of 100% with a PEEP of 5. The pH was 7.28 with a PCO2 of 54 and PO2 of 394. The patient had 2 mediastinal chest tubes and a single left pleural chest tube. Chest x-ray shows no acute abnormalities. Tubes and lines are all in place and the patient has minimal output through the chest tube and there is no evidence of any air leak or pneumothorax. Hemodynamically, the patient has a [place]-Teresa catheter in place. Cardiac output is at 5.1 with an index of 2.5. Cardiac rhythm is sinus. The patient is currently on amiodarone at 1 mg/min and nitroglycerin drip at 5 mcg/min. Urine output is adequate. There was a close at 20 with a hemoglobin 10.3 and the platelet count of 164. The sodium is at 137, potassium is at 4.1, BUN is 10 with a creatinine of 0.6. LFTs are normal at this point. Cardiac rhythm is sinus. No other significant events since his arrival to the intensive care unit. On 10/16/2024, the patient is being seen for a follow-up. The patient is currently postop day #1. The patient is doing very well. No significant respite difficulties. He is currently on room air oxygen. Hemodynamically stable. No fever. No chills. No cardiac arrhythmias and the patient's cardiac rhythm is sinus. The patient is currently off nitroglycerin drip. Amiodarone will be switched to oral. [place]-Teresa catheter still in place and the patient's PA pressures are 34/12 with a cardiac output of 7.2 and index of 3.0. Insulin drip is still running at 1 unit an hour. Output from the chest tubes have been noted. The patient has a total of 750 cc of output since surgery from the mediastinal tube and 400 cc from the left lower chest tube. Tubes will be kept in place. No evidence of pneumothorax on today's chest x-ray. The patient has a backup pacemaker, VVI mode at rate of 50. Awake alert and communicating. Denies having any specific complaints. Blood work from today shows a WBC count of 11.4, hemoglobin of 8.6 and a platelet count of 160. Sodium is at 135, BUN is 9 with a creatinine of 0.6. LFTs are normal. No other significant events otherwise for now. No focal neurological deficits. On 10/17/2024, the patient is being seen for a follow-up. The patient is doing extremely well. Calm and comfortable. Remains on room air oxygen. Denies having any significant respiratory distress. Chest tubes are in place and output was also noted. The patient CVP is at 9. The patient has produced around 250 cc from the mediastinal chest tube over the past 24 hours and 650 cc from the left pleural chest tube. Cardiac rhythm is sinus. Awake and alert and communicating. No significant shortness of breath with using incentive spirometer. No significant anxiety. No agitation. No altered mentation. [place]-Teresa catheter has been removed. Chest x-ray shows expected adequate expansion of both lungs and there is no evidence of any pneumothorax. The white cell count is 16, hemoglobin is 8.6 and a platelet count of 171. Sodium is at 132, potassium is 4.2, BUN 6 with a creatinine of 0.62. LFTs are normal. No other significant events overnight. The patient is currently on oral amiodarone 400 mg p.o. twice a day. Remains on 5 mg of Norvasc for blood pressure control. Metoprolol has been changed to 50 mg p.o. twice daily. He is currently off insulin drip. The patient is on sliding scale insulin for blood sugar control. Remains on aspirin and Plavix. Remains on Lipitor. The patient is seen today October 18, 2024 in follow-up on the selective care unit. He is awake and alert in no acute distress. He has been up ambulating in the hallway. He denies any worsening shortness of breath, cough or congestion. Maintaining good O2 saturations in the 90s on room air oxygen. Has been afebrile. Hemodynamically stable. Chest x-ray reveals postsurgical changes. No evidence of pneumothorax. White count 14.4. Hemoglobin 8.2. Platelets 199. Sodium 135. Potassium 3.9. Bicarb 25. BUN 11. Creatinine 0.82. Glucose 118. He remains on DuoNeb inhalations. He is working well with the incentive spirometer. Continued on heparin for DVT prophylaxis. Objective - Vital Signs Vital signs: Vital Signs Temp 98.6 F 10/18/24 09:04 Pulse 88 10/18/24 16:55 Resp 18 10/18/24 14:00 BP 108/69 10/18/24 12:00 Pulse Ox 97 10/18/24 09:04 FiO2 21 10/17/24 09:18 Intake & Output 10/17/24 10/18/24 10/18/24 18:59 06:59 18:59 Intake Total 275.196 222 Output Total 1730 1260 1000 Balance -1454.804 -1260 -778 Weight 93.3 kg Intake: IV 168 Pressure 18 Sodium Chloride 0.9% 1, 150 000 ml @ 20 mls/hr IV . Q24H [facility] Rx#:[id number] Intake, IV Titration 107.196 Amount Insulin Regular 100 unit 7.196 In Sodium Chloride 0.9% 100 ml @ Per Protocol IV .Q0M [facility] Rx#:[id number] Magnesium Sulfate-D5w Pmx 100 1 gm In Dextrose/Water 1 100ml.bag @ 100 mls/hr IVPB ONCE ONE Rx#: [id number] Oral 222 Output: Chest Tube Drainage 230 110 Left Pleural 230 110 Urine 1500 1150 1000 Other: Voiding Method Urinal Urinal # Voids 5 1 3 # Bowel Movements 1 ABP, PAP, CO, CI - Last Documented Arterial Blood Pressure 145/59 Pulmonary Artery Pressure 27/7 Cardiac Output 7.2 Cardiac Index 3.5 - Exam GENERAL EXAM: Alert, active, very pleasant 48-year-old, on room air oxygen, comfortable in no apparent distress. HEAD: Normocephalic. EYES: Normal reaction of pupils, equal size. NOSE: Clear with pink turbinates. THROAT: No erythema or exudates. NECK: No masses, no JVD. CHEST: Surgical incision clean dry well-approximated. Sternum stable. Heart hugger in place. LUNGS: Equal air entry with no crackles, wheeze, rhonchi or dullness. CVS: S1 and S2 normal with no audible murmur, regular rhythm. ABDOMEN: No hepatosplenomegaly, normal bowel sounds, no guarding or rigidity. SPINE: No scoliosis or deformity SKIN: No rashes CENTRAL NERVOUS SYSTEM: No focal deficits, tone is normal in all 4 extremities. EXTREMITIES: There is no peripheral edema. No clubbing, no cyanosis. Peripheral pulses are intact. - Labs CBC & Chem 7: 10/18/24 05:43 10/18/24 05:43 Labs: Abnormal Lab Results - Last 24 Hours (Table) 10/17/24 10/17/24 10/18/24 Range/Units 20:03 20:47 05:43 WBC 14.49 H (4.50-10.00) 10*3/uL RBC 2.56 L (4.40-5.60) 10*6/uL Hgb 8.2 L (13.0-17.0) g/dL Hct 24.4 L (39.6-50.0) % Immature Gran # 0.09 H (0.00-0.04) 10*3/uL Neutrophils # 9.15 H (1.80-7.70) 10*3/uL Monocytes # 1.57 H (0.20-1.00) 10*3/uL Sodium (137-145) mmol/L Glucose (74-99) mg/dL POC Glucose (mg/dL) 137 H 135 H (70-110) mg/dL Calcium (8.4-10.2) mg/dL Total Protein (6.3-8.2) g/dL Albumin (3.5-5.0) g/dL 10/18/24 10/18/24 10/18/24 Range/Units 05:43 06:01 11:31 WBC (4.50-10.00) 10*3/uL RBC (4.40-5.60) 10*6/uL Hgb (13.0-17.0) g/dL Hct (39.6-50.0) % Immature Gran # (0.00-0.04) 10*3/uL Neutrophils # (1.80-7.70) 10*3/uL Monocytes # (0.20-1.00) 10*3/uL Sodium 135 L (137-145) mmol/L Glucose 118 H (74-99) mg/dL POC Glucose (mg/dL) 161 H 131 H (70-110) mg/dL Calcium 8.0 L (8.4-10.2) mg/dL Total Protein 5.2 L (6.3-8.2) g/dL Albumin 3.3 L (3.5-5.0) g/dL /30/25 Range/Units 16:37 WBC (4.50-10.00) 10*3/uL RBC (4.40-5.60) 10*6/uL Hgb (13.0-17.0) g/dL Hct (39.6-50.0) % Immature Gran # (0.00-0.04) 10*3/uL Neutrophils # (1.80-7.70) 10*3/uL Monocytes # (0.20-1.00) 10*3/uL Sodium (137-145) mmol/L Glucose (74-99) mg/dL POC Glucose (mg/dL) 123 H (70-110) mg/dL Calcium (8.4-10.2) mg/dL Total Protein (6.3-8.2) g/dL Albumin (3.5-5.0) g/dL Assessment and Plan Assessment: Coronary artery disease post acute non-ST segment elevation myocardial infarction. 2D echocardiogram which demonstrated a left ventricular ejection fraction to be estimated at 55 to 60%, trace mitral valve regurgitation, trace to mild aortic valve regurgitation, trace tricuspid valve regurgitation, trace pulmonic valve regurgitation, and a normal size aortic root and proximal ascending aorta. The cardiac catheterization which was completed and revealed a 90% stenosis to his mid left anterior descending coronary artery, and 80 to 90% stenosis to his ostial diagonal 2, a 50 to 60% stenosis to his proximal left circumflex coronary artery and a 70% stenosis to his mid right coronary artery. Coronary artery bypass surgery with four-vessel bypass with MENDEZ to LAD, radial to and SVG to PDA and diagonal. The patient is hemodynamically stable. Adequat e cardiac output and index. Adequate urine output. Cardiac rhythm is sinus. The patient is postop day #3 and the patient is hemodynamically stable. Cardiac rhythm is sinus. Postthoracotomy, extubated and the patient is currently on room air oxygen. Using incentive spirometer. Mediastinal chest tubes in the left lower chest tubes are in place. Output has been noted. Chest x-ray shows some atelectatic change lung base bilaterally. No significant respiratory distress. Hypertension Chronic marijuana smoking Former smoker the patient quit smoking 15 years ago Chronic anxiety Poor dentition Plan: The patient was seen and evaluated Chest x-ray, labs and medications reviewed Left pleural chest tube removed Currently stable and on room air oxygen Encourage increased use of the incentive spirometer Currently up ambulating in the hallway Continue DuoNeb inhaations Continue heparin for DVT prophylaxis Possible discharge in the a.m. We will continue to follow I have personally seen and examined the patient, performed the documentation and the assessment and plan as written. Number of minutes spent on the visit: 10 Dictation was produced using [employer] dictation software. Please excuse any grammatical, word or spelling errors.
[2024-10-18 20:00] LABS: Glucose,Whole Blood 136 mg/dL (70-110)
[2024-10-18] MEDS: HYDROcodone/APAP 7.5-325MG 1 EACH TAB PO PRN (20:31)
[2024-10-19 04:21] VITALS: TEMP 98.3
[2024-10-19 06:30] LABS: Glucose,Whole Blood 115 mg/dL (70-110)
--- NOTE | 2024-10-19 06:34 | XR ---
EXAMINATION TYPE: XR chest 2V DATE OF EXAM: 10/19/2024 6:25 AM COMPARISON: Chest radiograph from one day prior CLINICAL INDICATION: Male, 48 years old with history of Post open heart surgery; [facility] TECHNIQUE: XR chest 2V Frontal view of the chest. FINDINGS: Lungs/Pleura: Blunting of the left costophrenic angle. There is no evidence of right pleural effusio n, focal consolidation, or pneumothorax Pulmonary vascularity: Unremarkable. Heart/mediastinum: Cardiomediastinal silhouette is unremarkable. Musculoskeletal: No acute osseous pathology. Midline sternotomy wires are noted. Other findings: None Lines/Tubes: Removal left thoracotomy tube. Drainage tubes with tips projecting over the mediastinum have been removed. IMPRESSION: 1. Postsurgical changes lines and tubes as above. 2. Small left pleural effusion. [facility], , 10/19/2024 6:32 AM
[2024-10-19 06:54] LABS: HCT 22.5 % (39.6-50.0); HGB 7.6 g/dL (13.0-17.0); MCH 32.2 pg (27.0-32.0); MCHC 33.8 g/dL (32.0-37.0); MCV 95.3 fL (80.0-97.0); Platelet Count 237 10*3/uL (140-440); RBC 2.36 10*6/uL (4.40-5.60); RDW 12.4 % (11.5-14.5); WBC 12.31 10*3/uL (4.50-10.00)
--- NOTE | 2024-10-19 07:01 | P.PN ---
Subjective Progress Note Date: 10/18/24 This is a pleasant 48-year-old male who presented to the emergency department with chest pain. Patient reports he was [place] [employer] and walking [id number] doing things throughout the day started having midsternal chest pain that was sharp and intense and intermittent at times although progressively became worse over the day and was persistent and was brought here by family for further evaluation. Patient reports he follows with Dr. Reyna in the [place] area as patient resides there and no significant past medical history other than previous history of hypertension although blood pressures have improved and patient was not taking any medications for them. Patient denies alcohol use or tobacco use but does admit to using marijuana on occasion. Labs reviewed on admission reveal a mildly elevated white count of 11.52, hemoglobin 15.3, platelets 308, D-dimer 0.18, sodium 139 with a potassium of 4.3, BUN 11, creatinine 0.81, magnesium 1.6, initial troponin 0.068, repeat is 0.060, third troponin is 0.051, BNP was 92 and lipase is 434. Patient did admit to some abdominal discomfort when experiencing this pain. Chest x-ray reveals possible underlying COPD otherwise no definitive acute process, EKG shows sinus rhythm and a heart rate of 76 bpm. Patient being admitted and started on IV heparin with cardiology on consultation.. 10/12/2024 Patient is seen in follow-up today currently n.p.o. maintained on heparin and patient is scheduled to undergo cardiac catheterization with cardiology sometime today although unsure of what time. Patient is extremely anxious on exam with significant other at the bedside with questions and concerns that were answered to the best of her ability. Patient continues to report some intermittent chest discomfort although feels he is mostly having withdrawal effects from marijuana as he uses this daily and frequently throughout the day. Patient does have as needed anxiety medications and will continue as needed. Follow-up on repeat labs and continue telemetry monitoring. 10/13/2024 Patient is seen in follow-up today remains n.p.o. maintained on heparin scheduled to undergo cardiac catheterization today. Patient continues to be extremely anxious and reports she is severely nauseated although he feels this is due to n.p.o. status. Recommend mouth swabs and complete n.p.o. for now until cleared by cardiology. This was discussed with family as well as patient at bedside and they are agreeable. Will await official cardiac cath irrigation report as patient also reports he would like to go home. Patient is afebrile with no reports of further chest pain or shortness of breath. 10/14/2024 Patient is seen in follow-up today is tentatively scheduled for cardiovascular thoracic intervention secondary to triple-vessel disease. Patient reports to feeling much improved and his anxiety is improving and reports he is ready for surgery. White count mildly elevated at 13.13, likely reactive, hemoglobin is 15.3, sodium 140 with a potassium of 4.1, BUN is 12 and creatinine is 0.87. Troponin 0.016 and magnesium is 2.0. Patient will be n.p.o. at midnight and will await official cardiology report. Questions and concerns were answered with family at the bedside 10/15/2024 Patient is down in the OR currently undergoing CABG with CT surgery. Will await official report. 10/18/2024 Patient seen in follow-up today currently sitting up in the chair status post CABG with cardiology and cardiothoracic following. Blood sugars are controlled on current regimen and will continue Accu-Cheks AC and at bedtime along with sliding scale. Hemoglobin A1c is 5.9. Patient is afebrile denies significant chest pain other than chest wall discomfort and does have heart hugger noted. Patient has been up and walking and working with physical therapy. Plan is for possibly home with home care in the next 24 hours. Cardiothoracic surgery working on discharge planning. Review of systems: Constitutional: No reports of fatigue, fever, or chills Cardiovascular: No reports of chest pain or palpitations Respiratory: No reports of shortness of breath or cough GI: No further reports of intermittent nausea, no vomiting, or diarrhea : No reports of dysuria or retention Neurovascular: No reports of weakness or numbness All medications have been reviewed PHYSICAL EXAMINATION: GENERAL: The patient is alert and oriented x3. Well developed, well nourished. Obese HEENT: Pupils are round and equally reacting to light. EOMI. No scleral icterus. No conjunctival pallor. Normocephalic, atraumatic. No pharyngeal erythema. No thyromegaly. CARDIOVASCULAR: S1 and S2 muffled. Heart hugger noted PULMONARY: Diminished breath sounds bilaterally otherwise chest is clear to auscultation, no wheezing or crackles. ABDOMEN: Soft, nontender, nondistended, normoactive bowel sounds. No palpable organomegaly. MUSCULOSKELETAL: No joint swelling or deformity. EXTREMITIES: No cyanosis, clubbing, or pedal edema. NEUROLOGICAL: Gross neurological examination did not reveal any focal deficits. SKIN: No rashes. Assessment: Chest pain,acute NSTEMI, troponins minimally elevated, status post cardiac catheterization revealing 90% stenosis of the mid LAD 80 to 90% ostial diagonal with significant multi-vessel disease, status post CABG x 4, 10/15/2024 Extensive daily THC use History of hypertension although not taking any medications per patient Obesity with a BMI of 32.5 GI prophylaxis DVT prophylaxis Full code Plan: Patient was admitted for cardiology evaluation and continued on IV heparin as patient had elevated troponins as mentioned previously. Patient underwent cardiac catheterization 10/13/2024 which revealed 90% mid LAD and significant multi-vessel disease, cardiothoracic surgery following and patient is status post CABG x 4 on 10/15/2024. Working with physical therapy and has been up multiple times walking Encourage incentive spirometer use at least 10 times every hour while awake Follow-up on repeat labs in monitor kidney functions and electrolytes closely Continue monitoring Accu-Cheks AC and at bedtime and will continue as needed insulin. Hemoglobin A1c is 5.9 with no history of diabetes We will continue to follow with cardiothoracic surgery during hospitalization. Thank you kindly for this consultation. The impression and plan of care has been dictated by Rachelle Johnson, Nurse Practitioner as directed. Dr. Tashi MD I have performed a history and examination and MDM of this patient, discussed the same with the dictator, and agree with the dictator's assessment and plan as written ,documented as a scribe. Based on total visit time, I have performed more than 50% of the visit. Objective - Vital Signs Vital signs: Vital Signs Temp 98.3 F 10/19/24 04:16 Pulse 86 10/19/24 04:16 Resp 18 10/19/24 04:16 BP 123/73 10/19/24 04:16 Pulse Ox 97 10/19/24 04:16 FiO2 21 10/17/24 09:18 Intake & Output 10/18/24 10/18/24 10/19/24 06:59 18:59 06:59 Intake Total 702 220 Output Total 1260 1250 1025 Balance -1260 -548 -805 Weight 93.3 kg 92.4 kg Intake: IV 20 Invasive Line 2 20 Oral 702 200 Output: Chest Tube Drainage 110 Left Pleural 110 Urine 1150 1250 1025 Other: Voiding Method Urinal Urinal # Voids 1 3 # Bowel Movements 3 ABP, PAP, CO, CI - Last Documented Arterial Blood Pressure 145/59 Pulmonary Artery Pressure 27/7 Cardiac Output 7.2 Cardiac Index 3.5 - Labs CBC & Chem 7: 10/19/24 06:13 10/18/24 05:43 Labs: Abnormal Lab Results - Last 24 Hours (Table) 10/18/24 10/18/24 10/18/24 Range/Units 11:31 16:37 19:59 WBC (4.50-10.00) 10*3/uL RBC (4.40-5.60) 10*6/uL Hgb (13.0-17.0) g/dL Hct (39.6-50.0) % MCH (27.0-32.0) pg POC Glucose (mg/dL) 131 H 123 H 136 H (70-110) mg/dL 10/19/24 10/19/24 Range/Units 06:13 06:29 WBC 12.31 H (4.50-10.00) 10*3/uL RBC 2.36 L (4.40-5.60) 10*6/uL Hgb 7.6 L (13.0-17.0) g/dL Hct 22.5 L (39.6-50.0) % MCH 32.2 H (27.0-32.0) pg POC Glucose (mg/dL) 115 H (70-110) mg/dL
[2024-10-19 07:16] LABS: African American GFR (CKD) >90 (>60 ml/min/1.73 sqM); Anion Gap 8 mmol/L; Blood Urea Nitrogen 10 mg/dL (9-20); Calcium 8.1 mg/dL (8.4-10.2); Carbon Dioxide 22 mmol/L (22-30); Chloride 106 mmol/L (98-107); Glucose 98 mg/dL (74-99); Magnesium 2.2 mg/dL (1.6-2.3); Non-African American GFR(CKD) >90 (>60 ml/min/1.73 sqM); Potassium 4.4 mmol/L (3.5-5.1); Sodium 136 mmol/L (137-145)
--- NOTE | 2024-10-19 07:50 | P.PN ---
Subjective Progress Note Date: 10/19/24 Principal diagnosis: Multivessel coronary artery disease, non-ST elevated myocardial infarction this admission. Previous medical history of hypertension currently not taking any a ntihypertensives outpatient, poor dentition, family history of early onset coronary artery disease, anxiety, current chewing tobacco use, cessation of cigarette smoking 15 years ago, and daily marijuana use smoking 8-10 joints daily POD#4 coronary artery bypass graft x 4 with left internal mammary artery to left anterior descending artery, RADIAL to obtuse marginal branch, saphenous vein graft to posterior descending artery, saphenous vein graft to DIAGONAL, left atrial appendage occlusion 35 mm Atriclip, medistim graft flow measurement, endoscopic harvest left greater saphenous vein, endoscopic harvest left radial artery Postoperative acute blood loss anemia, expected given hemodilution and cardiopulmonary bypass pump The patient was seen and examined this morning walking around his room on the cardiac stepdown unit in no acute distress. Remains in sinus rhythm, hemodynamically stable. Currently on room air with oxygen saturation in the high 90s, able to achieve 1500 mL on incentive spirometry. States pain is controlled with current medication regimen, denies shortness of breath. Patient has been ambulatory multiple times in the hallway with standby assist. Anticipates discharge to home today. No other new concerns. Objective - Vital Signs Vital signs: Vital Signs Temp 98.3 F 10/19/24 04:16 Pulse 86 10/19/24 04:16 Resp 18 10/19/24 04:16 BP 123/73 10/19/24 04:16 Pulse Ox 97 10/19/24 04:16 FiO2 21 10/17/24 09:18 Intake & Output 10/18/24 10/19/24 10/19/24 18:59 06:59 18:59 Intake Total 702 220 Output Total 1250 1025 Balance -548 -805 Weight 92.4 kg Intake: IV 20 Invasive Line 2 20 Oral 702 200 Output: Urine 1250 1025 Other: Voiding Method Urinal # Voids 3 # Bowel Movements 3 ABP, PAP, CO, CI - Last Documented Arterial Blood Pressure 145/59 Pulmonary Artery Pressure 27/7 Cardiac Output 7.2 Cardiac Index 3.5 - Exam CONSTITUTIONAL: Appears comfortable, cooperative, no acute distress RESPIRATORY: Lungs sounds diminished in the bases bilaterally. Respirations even, nonlabored. Currently on room air with oxygen saturation 97%. Able to achieve 1500 mL on incentive spirometry. Strong cough. CARDIOVASCULAR: S1, S2 present. Regular rate and rhythm, sinus rhythm on telemetry. Sternum stable. Palpable peripheral pulses bilaterally. No edema present. No calf pain or tenderness noted. Heart hugger in place with patient demonstrating appropriate use. Antiembolism stockings, SCDs present. GASTROINTESTINAL: Abdomen soft, nontender, nondistended. Active bowel sounds present 4 quadrants. Tolerating diet. Positive bowel movement 10/18 GENITOURINARY: Continues to void, 2275 mL in the last 24 hours INTEGUMENTARY: Skin is warm and dry with evidence of good perfusion. Anterior chest incision well approximated. Left radial artery harvest site as well as left lower extremity EVH site well approximated without redness or drainage. Bruising present to left thigh, expected NEUROLOGIC: Cranial nerves II through XII intact MUSKULOSKELETAL: Able to move all extremities, strength equal bilaterally, gait normal PSYCHIATRIC: Alert and oriented to person place and time, appropriate affect, intact judgment and insight - Allied health notes Allied health notes reviewed: nursing - Labs CBC & Chem 7: 10/19/24 06:13 10/19/24 06:13 Labs: Abnormal Lab Results - Last 24 Hours (Table) 10/18/24 10/18/24 10/18/24 Range/Units 11:31 16:37 19:59 WBC (4.50-10.00) 10*3/uL RBC (4.40-5.60) 10*6/uL Hgb (13.0-17.0) g/dL Hct (39.6-50.0) % MCH (27.0-32.0) pg Sodium (137-145) mmol/L POC Glucose (mg/dL) 131 H 123 H 136 H (70-110) mg/dL Calcium (8.4-10.2) mg/dL 10/19/24 10/19/24 10/19/24 Range/Units 06:13 06:13 06:29 WBC 12.31 H (4.50-10.00) 10*3/uL RBC 2.36 L (4.40-5.60) 10*6/uL Hgb 7.6 L (13.0-17.0) g/dL Hct 22.5 L (39.6-50.0) % MCH 32.2 H (27.0-32.0) pg Sodium 136 L (137-145) mmol/L POC Glucose (mg/dL) 115 H (70-110) mg/dL Calcium 8.1 L (8.4-10.2) mg/dL - Imaging and Cardiology Chest x-ray: report reviewed, image reviewed Assessment and Plan Assessment: Multivessel coronary artery disease, non-ST elevated myocardial infarction this admission, status post four-vessel CABG Postoperative acute blood loss anemia, expected given hemodilution and cardiopulmonary bypass pump History of hypertension currently not taking any antihypertensives outpatient Poor dentition Anxiety Current chewing tobacco use, cessation of cigarette smoking 15 years ago Daily marijuana use smoking 8-10 joints daily Family history of early onset coronary artery disease Plan: Continue to maximize medical therapy with aspirin, statin, Plavix, beta-kandy Continue amiodarone for atrial fibrillation prophylaxis, will taper dose weekly. Patient has had no atrial fibrillation up to this point Continue calcium channel kandy for radial artery spasm prophylaxis Encourage incentive spirometry use 10 times every hour while awake, bronchodilators per pulmonology Increase activity, ambulate as tolerated. PT/OT/cardiac rehab consulted Will monitor daily labs and x-rays. Electrolyte replacement per protocol. No Lasix today GI/DVT prophylaxis Insulin management per internal medicine. Patient is not diabetic, preoperative hemoglobin A1c 5.8% Pain control per current medication regimen Monitor and record strict accurate intake and output Daily weights Shower daily starting today Discharge planning in progress, anticipate discharge to home with home care today More recommendations to follow based on patient's progress
--- NOTE | 2024-10-19 10:14 | P.DS ---
Providers Date of admission: 10/11/24 12:11 Expected date of discharge: 10/19/24 Attending physician: Edita Arvizu MD Consults: 10/11/24 12:27 Consult Physician Routine Consulting Provider: [facility] Consult Reason/Comments: NSTEMI Do you want consulting provider notified?: Yes, Notify in am 10/13/24 14:14 Consult Physician Routine Consulting Provider: Jhon Swann Consult Reason/Comments: triple vessel CAD, eval for CABG Do you want consulting provider notified?: Yes 10/13/24 15:04 Consult to Anesthesia Routine Consulting Provider: Anest[facility],Services Consult Reason/Comments: Cardiac Surgery Pre-Op 10/14/24 08:24 Consult Physician Routine Consulting Provider: Shawn Tang Consult Reason/Comments: pulm clearence for open heart Do you want consulting provider notified?: Yes 10/15/24 13:48 Consult Physician Routine Consulting Provider: Karan Tsai Consult Reason/Comments: insulin mgmt Do you want consulting provider notified?: Already Contacted Primary care physician: Stated None Hospital Course: FINAL DIAGNOSIS: Multivessel coronary artery disease, non-ST elevated myocardial infarction this admission Postoperative acute blood loss anemia, expected given hemodilution and cardiopulmonary bypass pump History of hypertension currently not taking any antihypertensives outpatient Poor dentition Anxiety Current chewing tobacco use, cessation of cigarette smoking 15 years ago Daily marijuana use smoking 8-10 joints daily Family history of early onset coronary artery disease PRINCIPAL PROCEDURE: Coronary artery bypass graft x 4 with left internal mammary artery to left anterior descending artery, radial artery to obtuse marginal branch, saphenous vein graft to posterior descending artery diagonal artery Left atrial appendage occlusion 35 mm Atriclip Medistim graft flow measurement Endoscopic harvest left greater saphenous vein Endoscopic harvest left radial artery HISTORY OF PRESENT ILLNESS: This is a 48-year-old gentleman who followed outpatient with Dr. Reyna in the past. He presented to the emergency department here at [facility] with complaints of intermittent central nonradiating chest pain over a 3-day period as well as diaphoresis, relieved with rest. He denied any other symptomatology. He was at a [employer] here locally in [place], and he was seen by the nurse who recommended he present to the emergency department for further evaluation and treatment recommendations. Initial laboratory results demonstrated elevated troponins and the patient was ruled in for non-STEMI. A twelve-lead EKG was completed which showed normal sinus rhythm. He was admitted for evaluation and treatment with consultation placed to cardiology. Transthoracic 2D echocardiogram demonstrated normal left ventricular systolic function with EF 55 to 60%, trace mitral and tricuspid valve regurgitation, trace to mild aortic valve regurgitation, normal size aortic root and proximal ascending aorta. He was recommended to undergo cardiac catheterization which revealed 90% stenosis to his mid left anterior descending coronary artery, 80 to 90% stenosis to his ostial second diagonal, 50 to 60% stenosis to his proximal left circumflex coronary artery and 70% stenosis to his mid right coronary artery. Consultation was placed to cardiothoracic surgery. He was recommended to undergo surgical myocardial revascularization. The usual perioperative course was discussed in detail with the patient and his family, all risks and benefits were explained, all questions were answered, and consent was obtained to proceed with surgery. The patient was kept inpatient due to the nature of his disease process. HOSPITAL COURSE: The patient was brought to the preoperative area 10/15/24, prepared in the usual fashion, and subsequently taken to the operating room where Dr. Arvizu performed four-vessel CABG. Upon completion of surgery the patient was transferred to the cardiovascular intensive care unit where he was recovered and monitored hemodynamically. He was extubated, all lines, tubes, and drips were discontinued when appropriate, and he was transferred to 3 S cardiac stepdown unit for further monitoring and rehabilitation. His oxygen was titrated down, he continued to work with physical and occupational therapy, he was tolerating oral diet, his pain was controlled, and he was ready to be discharged to home with [facility] care on postoperative day #4. He received written and verbal instruction regarding his medications, activity restrictions, signs and symptoms requiring physician notification, and follow-up appointments. Patient Condition at Discharge: Stable Plan - Discharge Summary Discharge Rx Participant: No New Discharge Prescriptions: New Atorvastatin [Lipitor] 40 mg PO DAILY #30 tab amLODIPine [Norvasc] 5 mg PO DAILY@1200 #30 tab Clopidogrel [Plavix] 75 mg PO DAILY #30 tab Pantoprazole [Protonix] 40 mg PO AC-BRKFST #30 tab Aspirin 325 mg PO DAILY #30 tab Amiodarone [Cordarone] 400 mg PO BID #35 tab Metoprolol Tartrate [Lopressor] 75 mg PO BID #180 tab Sennosides-Docusate Sodium [Senokot-S] 2 each PO HS PRN tab PRN Reason: Constipation Acetaminophen Tab [Tylenol] 650 mg PO Q4HR PRN tab PRN Reason: Fever And/ Or Mild Pain (1-3) Discharge Medication List Acetaminophen Tab [Tylenol] 650 mg PO Q4HR PRN tab 10/19/24 [Rx] Amiodarone [Cordarone] 400 mg PO BID #35 tab 10/19/24 [Rx] Aspirin 325 mg PO DAILY #30 tab 10/19/24 [Rx] Atorvastatin [Lipitor] 40 mg PO DAILY #30 tab 10/19/24 [Rx] Clopidogrel [Plavix] 75 mg PO DAILY #30 tab 10/19/24 [Rx] Metoprolol Tartrate [Lopressor] 75 mg PO BID #180 tab 10/19/24 [Rx] Pantoprazole [Protonix] 40 mg PO AC-BRKFST #30 tab 10/19/24 [Rx] Sennosides-Docusate Sodium [Senokot-S] 2 each PO HS PRN tab 10/19/24 [Rx] amLODIPine [Norvasc] 5 mg PO DAILY@1200 #30 tab 10/19/24 [Rx] Follow up Appointment(s)/Referral(s): Edmond Crespo MD [STAFF PHYSICIAN] - 11/05/24 10:15 am (Appointment is with VANDANA Chavez) Naina Renee NPC [Nurse Practitioner] - 1 Week (You will be seen in the surgeon's office behind the hospital in [facility], [address] Office phone number is ; please come any day Friday thru Friday 8 am to 3 pm. You may also follow up with the Nurse Practitioners who work with Dr. Arvizu at [facility] [place] for convenience, they have clinic hours on Friday and afternoons. The number to [facility] [place] ) [facility],Cardiac [NON-STAFF] - 4 Weeks (You will receive a phone call in approximately 4-6 weeks for evaluation for cardiac rehab) [facility], [NON-STAFF] - 1-2 Days (Approved for 4 visits. ) Edita Arvizu MD [STAFF PHYSICIAN] - 11/09/24 10:00 am (Your appointment with Dr. Arvizu will be at [facility] to make the drive less cumbersome for you. The office will call the day before the appointment to confirm and with instructions for how to get their. The office number in [place] is ) Shawn Tang MD [STAFF PHYSICIAN] - 01/12/25 9:00 am [facility] [Other] - 11/10/24 1:30 pm (Appointment is at 1:30 pm, they ask that you arrive at 1 pm for paperwork) Ambulatory/Diagnostic Orders: Complete Blood Count w/diff [LAB.AMB] Time Frame: 3 Days, Location: None Selected Comprehensive Metabolic Panel [LAB.AMB] Time Frame: 3 Days, Location: None Selected Activity/Diet/Wound Care/Special Instructions: DISCHARGE INSTRUCTIONS: 1. No driving for 4 weeks, or until physician gives their ok. 2. The patient should sleep in their own bed, no medical bed needed. 3. Stairs are not an issue. If the bedroom is upstairs, it is advised that the patient go up at night and down in the morning for the first week. Go slowly, using handrail and take 1 step at a time. 4. BALDEV hose are to be worn for 30 days post surgery or until physician discontinues. 5. Heart hugger is to be worn 100% of the time until physician discontinues.(except when showering) 6. No lifting, pushing, or pulling more than 10 pounds for 12 weeks. The physician will advise of any restriction changes. 7. The patient is expected to continue the prescribed walking program. 8. Continue pain control per as needed orders. 9. Continue with incentive spirometry and splinting/heart hugger until otherwise directed by the physician. 10. Must shower daily using liquid antibacterial soap 11. Routine sternal incision care. No powders, lotions, ointments on incisions. No dressings are necessary on incisions unless they are draining. Dermabond tape is to remain on sternal incision until surgeon follow-up. 12. Please call surgeon/PURCHASING MANAGER for temp greater than 101 F or purulent drainage from incisions. 13. You should weigh yourself daily, record and bring log with you to follow up appointments. 14. All prescriptions given by surgeon for 30 days. Refills need to be filled through manager transition/primary care physician. 15. A Red armband has been placed on the patient. It should be worn for 30 days post discharge from surgery and will be removed by the cardiac surgeons. If an ER visit is necessary, please make sure the number on the Red armband is called before going to ER. 16. You have been referred to and are expected to begin Cardiac Rehab in approximately 4-6 weeks. 17. Quitting smoking is the most important step you can take to improve your health. For additional information and assistance to quit smoking, please call the [place] tobacco quit line (0-271-FVQE-NOW/ ) or online: [email or web address] TO PROVIDE: RN SKILLED HOME CARE SERVICES FOR POST-OP SURGICAL PATIENTS WITH THE FOLLOWING: Coronary Artery Bypass Surgery (CABG), Mitral Valve Replacement/Repair ( MVR), Aortic Valve Replacement/Repair (AVR) RN TO CONTINUE EDUCATION FROM ``ROAD TO A HEALTH HEART PATIENT EDUCATION MANUAL (GIVEN TO PATIENT IN THE HOSPITAL) MEDICATION RECONCILIATION WITH EDUCATION NEEDED ON FIRST HOME VISIT EMPHASIZE IMPORTANCE OF WEARING BREAST SUPPORT/HEART HUGGER ENCOURAGE USE OF INCENTIVE SPIROMETER 10 X EVERY HOUR WHILE AWAKE ENCOURAGE UTILIZATION OF LOWER EXTREMITY COMPRESSION STOCKINGS/BALDEV HOSE and ELEVATE LEGS ABOVE LEVEL OF HEART WHILE AT REST. ENCOURAGE AMBULATION 3-5x/day INCREASING TOLERATES, WHILE AVOIDING EXTREMES IN TEMPERATURE FREQUENCY: RN TO OPEN THE PATIENT WITHIN 24 HOURS OF DISCHARGE FROM THE HOSPITAL WITH [place]HE[place] [facility] [place] VISIT 2-3 X A WEEK FOR 4 WEEKS ESTABLISHED BY PATIENT NEEDS. LABORATORY: CBC, CMP TO BE DRAWN ON THE THIRD DAY HOME, (RAN STAT) FAX RESULTS TO [phone]. TELEHEALTH PARAMETERS: WEIGHT: NOTIFY MD OF WEIGHT GAIN OF 2 LBS IN 24 HOURS OR 5 LBS IN ONE WEEK HR: NOTIFY MD OF HR <55 BPM OR HR>100 BPM BP: NOTIFY MD IF BP <90/55 OR BP>140/100 O2 SAT: NOTIFY MD IF PO2<93% ON ROOM AIR SEND TELEHEALTH REPORT TO RIG SITE ENGINEER AND CARDIOVASCULAR SURGEON THE FIRST WEEK OF CARE AND THEN BI-WEEKLY. PLEASE ADDITIONALLY COMMUNICATE ANY ABNORMALS AND NEW FINDINGS TO THE SURGEONS OFFICE. Discharge/Stand Alone Forms: Area PCPs Discharge Disposition: HOME WITH HOME HEALTH SERVICES
[2024-10-19 11:20] LABS: Glucose,Whole Blood 160 mg/dL (70-110)
--- NOTE | 2024-10-19 11:38 | P.PN ---
Subjective Progress Note Date: 10/19/24 On 10/15/2024, the patient is being seen immediately following his cardiac surgery. The patient had surgery by Dr. Arvizu and the patient underwent four- vessel bypass surgery including MENDEZ to LAD, radial to OM, SVG to PDA and diagonal. The patient was seen immediately in the ICU following his arrival and the patient was calm and comfortable on propofol. The patient was on assist- control mode of mechanical ventilation at rate of 12, tidal volume of 500, FiO2 of 100% with a PEEP of 5. The pH was 7.28 with a PCO2 of 54 and PO2 of 394. The patient had 2 mediastinal chest tubes and a single left pleural chest tube. Chest x-ray shows no acute abnormalities. Tubes and lines are all in place and the patient has minimal output through the chest tube and there is no evidence of any air leak or pneumothorax. Hemodynamically, the patient has a [place]resa catheter in place. Cardiac output is at 5.1 with an index of 2.5. Cardiac rhythm is sinus. The patient is currently on amiodarone at 1 mg/min and nitroglycerin drip at 5 mcg/min. Urine output is adequate. There was a close at 20 with a hemoglobin 10.3 and the platelet count of 164. The sodium is at 137, potassium is at 4.1, BUN is 10 with a creatinine of 0.6. LFTs are normal at this point. Cardiac rhythm is sinus. No other significant events since his arrival to the intensive care unit. On 10/16/2024, the patient is being seen for a follow-up. The patient is currently postop day #1. The patient is doing very well. No significant respite difficulties. He is currently on room air oxygen. Hemodynamically stable. No fever. No chills. No cardiac arrhythmias and the patient's cardiac rhythm is sinus. The patient is currently off nitroglycerin drip. Amiodarone will be switched to oral. [place] catheter still in place and the patient's PA pressures are 34/12 with a cardiac output of 7.2 and index of 3.0. Insulin drip is still running at 1 unit an hour. Output from the chest tubes have been noted. The patient has a total of 750 cc of output since surgery from the mediastinal tube and 400 cc from the left lower chest tube. Tubes will be kept in place. No evidence of pneumothorax on today's chest x-ray. The patient has a backup pacemaker, VVI mode at rate of 50. Awake alert and communicating. Denies having any specific complaints. Blood work from today shows a WBC count of 11.4, hemoglobin of 8.6 and a platelet count of 160. Sodium is at 135, BUN is 9 with a creatinine of 0.6. LFTs are normal. No other significant events otherwise for now. No focal neurological deficits. On 10/17/2024, the patient is being seen for a follow-up. The patient is doing extremely well. Calm and comfortable. Remains on room air oxygen. Denies having any significant respiratory distress. Chest tubes are in place and output was also noted. The patient CVP is at 9. The patient has produced around 250 cc from the mediastinal chest tube over the past 24 hours and 650 cc from the left pleural chest tube. Cardiac rhythm is sinus. Awake and alert and communicating. No significant shortness of breath with using incentive spirometer. No significant anxiety. No agitation. No altered mentation. [place]resa catheter has been removed. Chest x-ray shows expected adequate expansion of both lungs and there is no evidence of any pneumothorax. The white cell count is 16, hemoglobin is 8.6 and a platelet count of 171. Sodium is at 132, potassium is 4.2, BUN 6 with a creatinine of 0.62. LFTs are normal. No other significant events overnight. The patient is currently on oral amiodarone 400 mg p.o. twice a day. Remains on 5 mg of Norvasc for blood pressure control. Metoprolol has been changed to 50 mg p.o. twice daily. He is currently off insulin drip. The patient is on sliding scale insulin for blood sugar control. Remains on aspirin and Plavix. Remains on Lipitor. The patient is seen today October 18, 2024 in follow-up on the selective care unit. He is awake and alert in no acute distress. He has been up ambulating in the hallway. He denies any worsening shortness of breath, cough or congestion. Maintaining good O2 saturations in the 90s on room air oxygen. Has been afebrile. Hemodynamically stable. Chest x-ray reveals postsurgical changes. No evidence of pneumothorax. White count 14.4. Hemoglobin 8.2. Platelets 199. Sodium 135. Potassium 3.9. Bicarb 25. BUN 11. Creatinine 0.82. Glucose 118. He remains on DuoNeb inhalations. He is working well with the incentive spirometer. Continued on heparin for DVT prophylaxis. The patient is seen today October 19, 2024 in follow-up on the selective care unit. He is currently sitting up in a chair. Awake and alert in no acute distress. Denies any shortness of breath, cough or congestion. No significant chest disc omfort. Surgical pain is well-controlled. He is maintaining good O2 saturations in the mid to upper 90s on room air oxygen. He has been afebrile. Hemodynamically stable. Chest x-ray shows postsurgical changes. Small left pleural effusion. White count 12.3. Hemoglobin 7.6. Platelets 237. Sodium 136. Potassium 4.4. Bicarb 22. BUN 10. Creatinine 0.81. Glucose 98. He remains on DuoNeb and elations. Continues to work well with the incentive spirometer. Heparin for DVT prophylaxis. Objective - Vital Signs Vital signs: Vital Signs Temp 98.3 F 10/19/24 04:16 Pulse 86 10/19/24 04:16 Resp 18 10/19/24 04:16 BP 123/73 10/19/24 04:16 Pulse Ox 97 10/19/24 04:16 FiO2 21 10/17/24 09:18 Intake & Output 10/18/24 10/19/24 10/19/24 18:59 06:59 18:59 Intake Total 702 220 180 Output Total 1250 1025 Balance -548 -805 180 Weight 92.4 kg Intake: IV 20 Invasive Line 2 20 Oral 702 200 180 Output: Urine 1250 1025 Other: Voiding Method Urinal # Voids 3 # Bowel Movements 3 ABP, PAP, CO, CI - Last Documented Arterial Blood Pressure 145/59 Pulmonary Artery Pressure 27/7 Cardiac Output 7.2 Cardiac Index 3.5 - Exam GENERAL EXAM: Alert, active, pleasant 48-year-old, on room air oxygen, sitting up in a chair, comfortable in no apparent distress. HEAD: Normocephalic. EYES: Normal reaction of pupils, equal size. NOSE: Clear with pink turbinates. THROAT: No erythema or exudates. NECK: No masses, no JVD. CHEST: Surgical incision clean dry well-approximated. Sternum stable. Heart hugger in place. LUNGS: Equal air entry with no crackles, wheeze, rhonchi or dullness. CVS: S1 and S2 normal with no audible murmur, regular rhythm. ABDOMEN: No hepatosplenomegaly, normal bowel sounds, no guarding or rigidity. SPINE: No scoliosis or deformity SKIN: No rashes CENTRAL NERVOUS SYSTEM: No focal deficits, tone is normal in all 4 extremities. EXTREMITIES: There is no peripheral edema. No clubbing, no cyanosis. Peripheral pulses are intact. - Labs CBC & Chem 7: 10/19/24 06:13 10/19/24 06:13 Labs: Abnormal Lab Results - Last 24 Hours (Table) 10/18/24 10/18/24 10/18/24 Range/Units 11:31 16:37 19:59 WBC (4.50-10.00) 10*3/uL RBC (4.40-5.60) 10*6/uL Hgb (13.0-17.0) g/dL Hct (39.6-50.0) % MCH (27.0-32.0) pg Sodium (137-145) mmol/L POC Glucose (mg/dL) 131 H 123 H 136 H (70-110) mg/dL Calcium (8.4-10.2) mg/dL 10/19/24 10/19/24 10/19/24 Range/Units 06:13 06:13 06:29 WBC 12.31 H (4.50-10.00) 10*3/uL RBC 2.36 L (4.40-5.60) 10*6/uL Hgb 7.6 L (13.0-17.0) g/dL Hct 22.5 L (39.6-50.0) % MCH 32.2 H (27.0-32.0) pg Sodium 136 L (137-145) mmol/L POC Glucose (mg/dL) 115 H (70-110) mg/dL Calcium 8.1 L (8.4-10.2) mg/dL 10/19/24 Range/Units 11:18 WBC (4.50-10.00) 10*3/uL RBC (4.40-5.60) 10*6/uL Hgb (13.0-17.0) g/dL Hct (39.6-50.0) % MCH (27.0-32.0) pg Sodium (137-145) mmol/L POC Glucose (mg/dL) 160 H (70-110) mg/dL Calcium (8.4-10.2) mg/dL Assessment and Plan Assessment: Coronary artery disease post acute non-ST segment elevation myocardial infarction. 2D echocardiogram which demonstrated a left ventricular ejection fraction to be estimated at 55 to 60%, trace mitral valve regurgitation, trace to mild aortic valve regurgitation, trace tricuspid valve regurgitation, trace pulmonic valve regurgitation, and a normal size aortic root and proximal ascending aorta. The cardiac catheterization which was completed and revealed a 90% stenosis to his mid left anterior descending coronary artery, and 80 to 90% stenosis to his ostial diagonal 2, a 50 to 60% stenosis to his proximal left circumflex coronary artery and a 70% stenosis to his mid right coronary artery. Coronary artery bypass surgery with four-vessel bypass with MENDEZ to LAD, radial to and SVG to PDA and diagonal. The patient is hemodynamically stable. Adequate cardiac output and index. Adequate urine output. Cardiac rhythm is sinus. The patient is postop day #4 and the patient is hemodynamically stable. Cardiac rhythm is sinus. Postthoracotomy, extubated and the patient is currently on room air oxygen. Using incentive spirometer. Mediastinal chest tubes in the left lower chest tubes are in place. Output has been noted. Chest x-ray shows some atelectatic change lung base bilaterally. No significant respiratory distress. Hypertension Chronic marijuana smoking Former smoker the patient quit smoking 15 years ago Chronic anxiety Poor dentition Plan: The patient was seen and evaluated Chest x-ray, labs and medications reviewed Currently stable and on room air oxygen Encourage continued use of the incentive spirometer Plan is for home today Follow-up in our office in 1 week I have personally seen and examined the patient, performed the documentation and the assessment and plan as written. Number of minutes spent on the visit: 10 Dictation was produced using [email or web address] dictation software. Please excuse any grammatical, word or spelling errors.
[2024-10-19 11:53] VITALS: BP 127/55
[2024-10-19 11:54] VITALS: PULSE 91
--- NOTE | 2024-10-19 14:43 | P.PN ---
Subjective Progress Note Date: 10/19/24 The patient was seen and evaluated this morning. He is asymptomatic. He is hemodynamically stable beside the pressure has been slightly elevated but only on 1 measurements. Beside that he is on dual antiplatelet therapy along with statin. The physical examination is remarkable for regular rhythm with a soft systolic murmur and clear breathing sounds bilaterally and no edema was noted in the lower extremities 10/19/2024 Patient seen and examined. He is scheduled for discharge home today. Blood pr essure 127/55, heart rate 91, pulse ox 98% on room air. Patient has been ambulating in the hallway with no chest pain, chest pressure, no lightheadedness or dizziness. Repeat blood work reveals hemoglobin 7.6, WBC 12.3, sodium 136, potassium 4.4, creatinine 0.81. The physical examination is remarkable for regular rhythm with a soft systolic murmur and clear breathing sounds bilaterally and no edema was noted in the lower extremities Assessment CAD status post CABG Hypertension Dyslipidemia Plan Continue the current medical regimen Anticipate discharge home today Continue to taper down the dose of amiodarone Nurse practitioner note has been reviewed, I agree with documented findings and plan of care. Patient was seen and examined. Objective - Vital Signs Vital signs: Vital Signs Temp 98.3 F 10/19/24 04:16 Pulse 86 10/19/24 04:16 Resp 18 10/19/24 04:16 BP 123/73 10/19/24 04:16 Pulse Ox 97 10/19/24 04:16 FiO2 21 10/17/24 09:18 Intake & Output 10/18/24 10/19/24 10/19/24 18:59 06:59 18:59 Intake Total 702 220 Output Total 1250 1025 Balance -548 -805 Weight 92.4 kg Intake: IV 20 Invasive Line 2 20 Oral 702 200 Output: Urine 1250 1025 Other: Voiding Method Urinal # Voids 3 # Bowel Movements 3 ABP, PAP, CO, CI - Last Documented Arterial Blood Pressure 145/59 Pulmonary Artery Pressure 27/7 Cardiac Output 7.2 Cardiac Index 3.5 - Labs CBC & Chem 7: 10/19/24 06:13 10/19/24 06:13 Labs: Abnormal Lab Results - Last 24 Hours (Table) 10/18/24 10/18/24 10/18/24 Range/Units 11:31 16:37 19:59 WBC (4.50-10.00) 10*3/uL RBC (4.40-5.60) 10*6/uL Hgb (13.0-17.0) g/dL Hct (39.6-50.0) % MCH (27.0-32.0) pg Sodium (137-145) mmol/L POC Glucose (mg/dL) 131 H 123 H 136 H (70-110) mg/dL Calcium (8.4-10.2) mg/dL 10/19/24 10/19/24 10/19/24 Range/Units 06:13 06:13 06:29 WBC 12.31 H (4.50-10.00) 10*3/uL RBC 2.36 L (4.40-5.60) 10*6/uL Hgb 7.6 L (13.0-17.0) g/dL Hct 22.5 L (39.6-50.0) % MCH 32.2 H (27.0-32.0) pg Sodium 136 L (137-145) mmol/L POC Glucose (mg/dL) 115 H (70-110) mg/dL Calcium 8.1 L (8.4-10.2) mg/dL
--- NOTE | 2024-10-21 00:49 | P.PN ---
Subjective Progress Note Date: 10/19/24 This is a pleasant 48-year-old male who presented to the emergency department with chest pain. Patient reports he was [facility] [employer] and walking [id number] doing things throughout the day started having midsternal chest pain that was sharp and intense and intermittent at times although progressively became worse over the day and was persistent and was brought here by family for further evaluation. Patient reports he follows with Dr. Reyna in the [place] area as patient resides there and no significant past medical history other than previous history of hypertension although blood pressures have improved and patient was not taking any medications for them. Patient denies alcohol use or tobacco use but does admit to using marijuana on occasion. Labs reviewed on admission reveal a mildly elevated white count of 11.52, hemoglobin 15.3, platelets 308, D-dimer 0.18, sodium 139 with a potassium of 4.3, BUN 11, creatinine 0.81, magnesium 1.6, initial troponin 0.068, repeat is 0.060, third troponin is 0.051, BNP was 92 and lipase is 434. Patient did admit to some abdominal discomfort when experiencing this pain. Chest x-ray reveals possible underlying COPD otherwise no definitive acute process, EKG shows sinus rhythm and a heart rate of 76 bpm. Patient being admitted and started on IV heparin with cardiology on consultation.. 10/12/2024 Patient is seen in follow-up today currently n.p.o. maintained on heparin and patient is scheduled to undergo cardiac catheterization with cardiology sometime today although unsure of what time. Patient is extremely anxious on exam with significant other at the bedside with questions and concerns that were answered to the best of her ability. Patient continues to report some intermittent chest discomfort although feels he is mostly having withdrawal effects from marijuana as he uses this daily and frequently throughout the day. Patient does have as needed anxiety medications and will continue as needed. Follow-up on repeat labs and continue telemetry monitoring. 10/13/2024 Patient is seen in follow-up today remains n.p.o. maintained on heparin scheduled to undergo cardiac catheterization today. Patient continues to be extremely anxious and reports she is severely nauseated although he feels this is due to n.p.o. status. Recommend mouth swabs and complete n.p.o. for now until cleared by cardiology. This was discussed with family as well as patient at bedside and they are agreeable. Will await official cardiac cath irrigation report as patient also reports he would like to go home. Patient is afebrile with no reports of further chest pain or shortness of breath. 10/14/2024 Patient is seen in follow-up today is tentatively scheduled for cardiovascular thoracic intervention secondary to triple-vessel disease. Patient reports to feeling much improved and his anxiety is improving and reports he is ready for surgery. White count mildly elevated at 13.13, likely reactive, hemoglobin is 15.3, sodium 140 with a potassium of 4.1, BUN is 12 and creatinine is 0.87. Troponin 0.016 and magnesium is 2.0. Patient will be n.p.o. at midnight and will await official cardiology report. Questions and concerns were answered with family at the bedside 10/15/2024 Patient is down in the OR currently undergoing CABG with CT surgery. Will await official report. 10/18/2024 Patient seen in follow-up today currently sitting up in the chair status post CABG with cardiology and cardiothoracic following. Blood sugars are controlled on current regimen and will continue Accu-Cheks AC and at bedtime along with sliding scale. Hemoglobin A1c is 5.9. Patient is afebrile denies significant chest pain other than chest wall discomfort and does have heart hugger noted. Patient has been up and walking and working with physical therapy. Plan is for possibly home with home care in the next 24 hours. Cardiothoracic surgery working on discharge planning. 10/19/2024 Patient is seen in follow-up today working on discharge planning per cardiothoracic surgery and patient has been cleared by other consultations. Patient does live in [place] and recommend outpatient follow-up with primary care provider as well as cardiothoracic's as scheduled. Patient is afebrile with no reports of chest pain or worsening shortness of breath. Patient has been up and walking multiple times patient is medically stable once cleared by card iothoracic surgery. Discussed again the importance of lifestyle medications. Review of systems: Constitutional: No reports of fatigue, fever, or chills Cardiovascular: No reports of chest pain or palpitations Respiratory: No reports of shortness of breath or cough GI: No further reports of intermittent nausea, no vomiting, or diarrhea : No reports of dysuria or retention Neurovascular: No reports of weakness or numbness All medications have been reviewed PHYSICAL EXAMINATION: GENERAL: The patient is alert and oriented x3. Well developed, well nourished. Obese HEENT: Pupils are round and equally reacting to light. EOMI. No scleral icterus. No conjunctival pallor. Normocephalic, atraumatic. No pharyngeal erythema. No thyromegaly. CARDIOVASCULAR: S1 and S2 muffled. Heart hugger noted PULMONARY: Diminished breath sounds bilaterally otherwise chest is clear to auscultation, no wheezing or crackles. ABDOMEN: Soft, nontender, nondistended, normoactive bowel sounds. No palpable or ganomegaly. MUSCULOSKELETAL: No joint swelling or deformity. EXTREMITIES: No cyanosis, clubbing, or pedal edema. NEUROLOGICAL: Gross neurological examination did not reveal any focal deficits. SKIN: No rashes. Assessment: Chest pain,acute NSTEMI, troponins minimally elevated, status post cardiac catheterization revealing 90% stenosis of the mid LAD 80 to 90% ostial diagonal with significant multi-vessel disease, status post CABG x 4, 10/15/2024 Extensive daily THC use History of hypertension although not taking any medications per patient Obesity with a BMI of 32.5 GI prophylaxis DVT prophylaxis Full code Plan: Patient was admitted for cardiology evaluation and continued on IV heparin as patient had elevated troponins as mentioned previously. Patient underwent cardiac catheterization 10/13/2024 which revealed 90% mid LAD and significant multi-vessel disease, cardiothoracic surgery following and patient is status post CABG x 4 on 10/15/2024. Working with physical therapy and has been up multiple times walking. Plan is for home and has support in the home Encourage incentive spirometer use at least 10 times every hour while awake. Encouraged to take home and continue using Follow-up on repeat labs in the outpatient setting functions and electrolytes Continue monitoring Accu-Cheks AC and at bedtime and will continue as needed insulin during hospitalization. Hemoglobin A1c is 5.9 with no history of diabetes. Instructed to follow-up with primary care provider to discuss Patient is medically stable once cleared by cardiothoracic's and cardiology We will continue to follow with cardiothoracic surgery during hospitalization. Thank you kindly for this consultation. The impression and plan of care has been dictated by Rachelle Johnson, Nurse Practitioner as directed. Dr. Tashi MD I have performed a history and examination and MDM of this patient, discussed the same with the dictator, and agree with the dictator's assessment and plan as written ,documented as a scribe. Based on total visit time, I have performed more than 50% of the visit. Objective - Vital Signs Vital signs: Vital Signs Temp 98.3 F 10/19/24 08:05 Pulse 102 H 10/19/24 08:05 Resp 18 10/19/24 08:05 BP 127/55 10/19/24 08:05 Pulse Ox 98 10/19/24 08:05 FiO2 21 10/17/24 09:18 ABP, PAP, CO, CI - Last Documented Arterial Blood Pressure 145/59 Pulmonary Artery Pressure 27/7 Cardiac Output 7.2 Cardiac Index 3.5 - Labs CBC & Chem 7: 10/19/24 06:13 10/19/24 06:13
== END 2024-10-19 12:10 | disposition home health service (06) | DRG 234 ==
LOC: EC 09:31 → 3SCARD 12:11 → 2SICU 10-15 06:20 → 3SCARD 10-18 04:05
PROVIDERS: ADMIT Thoracic Surgery (Cardiothoracic Vascular Surgery); ATTEND Thoracic Surgery (Cardiothoracic Vascular Surgery)
PROC: 4A023N7 Measurement of Cardiac Sampling and Pressure, Left Heart, Percutaneous Approach (ICD-10-PCS; 2024-10-13)
PROC: B2111ZZ Fluoroscopy of Multiple Coronary Arteries using Low Osmolar Contrast (ICD-10-PCS; 2024-10-13)
PROC: 05BA4ZZ Excision of Left Brachial Vein, Percutaneous Endoscopic Approach (ICD-10-PCS; 2024-10-15)
PROC: 02L70CK Occlusion of Left Atrial Appendage with Extraluminal Device, Open Approach (ICD-10-PCS; 2024-10-15)
PROC: 5A1221Z Performance of Cardiac Output, Continuous (ICD-10-PCS; 2024-10-15)
PROC: B246ZZ4 Ultrasonography of Right and Left Heart, Transesophageal (ICD-10-PCS; 2024-10-15)
PROC: 5A1223Z Performance of Cardiac Pacing, Continuous (ICD-10-PCS; 2024-10-15)
PROC: 5A1221Z Performance of Cardiac Output, Continuous (ICD-10-PCS; 2024-10-15)
PROC: 02100Z9 Bypass Coronary Artery, One Artery from Left Internal Mammary, Open Approach (ICD-10-PCS; principal; 2024-10-15 07:30)
PROC: 021209W Bypass Coronary Artery, Three Arteries from Aorta with Autologous Venous Tissue, Open Approach (ICD-10-PCS; 2024-10-15 07:30)
PROC: 06BQ4ZZ Excision of Left Saphenous Vein, Percutaneous Endoscopic Approach (ICD-10-PCS; 2024-10-15 07:30)
DX: I21.4 Non-ST elevation (NSTEMI) myocardial infarction (principal); D62 Acute posthemorrhagic anemia; E66.9 Obesity, unspecified; I10 Essential (primary) hypertension; I25.10 Atherosclerotic heart disease of native coronary artery without angina pectoris; E78.5 Hyperlipidemia, unspecified; F41.9 Anxiety disorder, unspecified; F12.90 Cannabis use, unspecified, uncomplicated; I25.2 Old myocardial infarction; Z79.82 Long term (current) use of aspirin; N28.89 Other specified disorders of kidney and ureter; Z79.899 Other long term (current) drug therapy; Z82.49 Family history of ischemic heart disease and other diseases of the circulatory system; Z88.5 Allergy status to narcotic agent
CPT/HCPCS: 36415; 71045; 71046; 71250; 80048; 80053; 80061; 80074; 81003; 82150; 82330; 82805; 83036; 83690; 83735; 83880; 84132; 84443; 84484; 85025; 85027; 85379; 85610; 85730; 86850; 86891; 86900; 86901; 86920; 87070; 93005; 93306; 93458; 93880; 93930; 93970; 94002; 94150; 94640; 96365; 96366; 96368; 96375; 99291